=== PATIENT | female | born 1965 | race American Indian/Alaskan Native ===

== ENCOUNTER 2017-09-14 11:50 | Outpatient (CLI) | payer OTHER ==
--- NOTE | 2017-09-14 12:34 | XRay Report ---
CHEST 2 VIEWS INDICATION: CAD, VT. COMPARISON: None similar at this institution. FINDINGS: PA and lateral chest radiographs demonstrate normal cardiomediastinal silhouette. Clear lungs. Mild multilevel spinal degenerative spurring. CONCLUSION: No acute disease in the chest. Thank you for the opportunity to participate in this patient's care.
== END 2017-09-14 11:51 | disposition home or self-care (01) ==
LOC: XRAY 11:50
PROVIDERS: ATTEND Internal Medicine
DX: I10 Essential (primary) hypertension (principal); I25.10 Atherosclerotic heart disease of native coronary artery without angina pectoris; I21.9 Acute myocardial infarction, unspecified; K58.9 Irritable bowel syndrome, unspecified; E78.00 Pure hypercholesterolemia, unspecified; M53.84 Other specified dorsopathies, thoracic region
CPT/HCPCS: 71046; 93005; 93010

== ENCOUNTER 2017-10-13 11:08 | Observation (INO) | payer OTHER ==
[2017-10-13] MEDS ORDERED: ASPIRIN PO ONE (11:18)
[2017-10-13 11:42] LABS: Basophils # (Auto) 0.1 K/mm3 (0.0-0.1); Basophils % (Auto) 0.4 % (0.0-1.8); Hemoglobin 13.6 gm/dl (10.1-14.3); Lymphocytes # (Auto) 1.8 K/mm3 (1.2-5.4); Lymphocytes % (Auto) 9.5 % (13.4-35.0); Mean Corpuscular HGB Conc 32 % (30-34); Mean Corpuscular Hemoglobin 27 pg (28-32); Mean Corpuscular Volume 85 fl (79-97); Monocytes # (Auto) 0.8 K/mm3 (0.0-0.8); Monocytes % (Auto) 4.1 % (0.0-7.3); Platelet Count 344 K/mm3 (140-440); Red Blood Count 4.96 M/mm3 (3.65-5.03); Red Cell Distribution Width 15.8 % (13.2-15.2)
[2017-10-13] MEDS ORDERED: ZOFRAN IV ONE (11:43)
[2017-10-13] MEDS ORDERED: ZOFRAN ONE (11:44)
[2017-10-13 11:54] LABS: BUN/Creatinine Ratio 17; Blood Urea Nitrogen 12 mg/dL (7-17); Calcium 9.8 mg/dL (8.4-10.2); Hemolysis Index 27
--- NOTE | 2017-10-13 12:01 | Emergency Department Report ---
ED General Adult HPI - General Chief complaint: Chest Pain Stated complaint: CP Time Seen by Provider: 10/13/17 11:35 Source: patient Mode of arrival: Ambulatory Limitations: No Limitations - History of Present Illness Initial comments: Patient complains of chest pain that has been intermittent in nature for last 3 weeks. Patient has a history of [place]. Patient describes the chest pain is left- sided with radiation to the left warm. She states pain is worse with exertion. -: Gradual Location: chest Radiation: other (left forearm) Severity scale (0 -10): 3 Quality: crushing Consistency: intermittent Improves with: none Worsens with: other (associated) Associated Symptoms: denies other symptoms Treatments Prior to Arrival: none - Related Data Allergies Allergy/AdvReac Type Severity Reaction Status Date / Time No Known Allergies Allergy Unverified 09/14/17 11:51 ED Review of Systems ROS: Stated complaint: CP Other details as noted in HPI Comment: All other systems reviewed and negative Constitutional: denies: chills, fever Eyes: denies: eye pain, eye discharge, vision change ENT: denies: ear pain, throat pain Respiratory: denies: cough, shortness of breath, wheezing Cardiovascular: chest pain. denies: palpitations Endocrine: no symptoms reported Gastrointestinal: denies: abdominal pain, nausea, diarrhea Genitourinary: denies: urgency, dysuria, discharge Musculoskeletal: denies: back pain, joint swelling, arthralgia Skin: denies: rash, lesions Neurological: denies: headache, weakness, paresthesias Psychiatric: denies: anxiety, depression Hematological/Lymphatic: denies: easy bleeding, easy bruising ED Past Medical Hx - Past Medical History Previous Medical History?: Yes Hx Hypertension: Yes Hx Heart Attack/AMI: Yes Additional medical history: High cholesterol. - Surgical History Past Surgical History?: No - Social History Smoking Status: Never Smoker Substance Use Type: None ED Physical Exam - General Limitations: No Limitations General appearance: alert, in no apparent distress - Head Head exam: Present: atraumatic, normocephalic - Eye Eye exam: Present: normal appearance - ENT ENT exam: Present: mucous membranes moist - Neck Neck exam: Present: normal inspection - Respiratory Respiratory exam: Present: normal lung sounds bilaterally. Absent: respiratory distress - Cardiovascular Cardiovascular Exam: Present: regular rate, normal rhythm. Absent: systolic murmur, diastolic murmur, rubs, gallop - GI/Abdominal GI/Abdominal exam: Present: soft, normal bowel sounds - Extremities Exam Extremities exam: Present: normal inspection - Back Exam Back exam: Present: normal inspection - Neurological Exam Neurological exam: Present: alert, oriented X3 - Psychiatric Psychiatric exam: Present: normal affect, normal mood - Skin Skin exam: Present: warm, dry, intact, normal color. Absent: rash ED Course Vital Signs 10/13/17 10/13/17 10/13/17 11:13 11:30 11:45 Temperature 98.6 F Pulse Rate 68 76 Respiratory 16 21 21 Rate Blood Pressure 170/92 168/97 O2 Sat by Pulse 96 94 Oximetry 10/13/17 10/13/17 10/13/17 12:00 12:15 12:30 Temperature Pulse Rate 64 65 63 Respiratory 22 16 15 Rate Blood Pressure 148/85 148/85 148/90 O2 Sat by Pulse 98 99 97 Oximetry 10/13/17 12:45 Temperature Pulse Rate 61 Respiratory 16 Rate Blood Pressure 148/90 O2 Sat by Pulse 97 Oximetry ED Medical Decision Making - Lab Data Result diagrams: 10/13/17 11:25 10/13/17 11:25 - EKG Data EKG shows normal: sinus rhythm Rate: normal - EKG Data 10/13/17 13:41 EKG shows a sinus rate of 75 with left ventricular hypertrophy and T-wave inversions no prior EKG for evaluation - Medical Decision Making Patient chest pain was relieved with sublingual nitroglycerin. Patient was seen by cardiology at the bedside Discussed results with patient and need for admission Per cardiology to plan to send the patient On Monday Critical care attestation.: If time is entered above; I have spent that time in minutes in the direct care of this critically ill patient, excluding procedure time. ED Disposition Clinical Impression: Chest pain Disposition: OP ADMIT IP TO THIS HOSP Is pt being admited?: Yes Does the pt Need Aspirin: Yes Condition: Stable Instructions: Chest Pain (ED) Time of Disposition: 13:39
[2017-10-13 13:01] LABS: INR 0.91 (0.87-1.13)
[2017-10-13 13:02] LABS: Partial Thromboplastin Time 29.9 Sec. (24.2-36.6)
[2017-10-13] MEDS ORDERED: NITROSTAT SL PRN (13:32)
[2017-10-13] MEDS ORDERED: NITRO-BID 2% TP ONE ×3 (13:34→18:00)
--- NOTE | 2017-10-13 14:32 | Consultation ---
History of Present Illness Consult date: 10/13/17 Requesting physician: MODE ROJAS Consult reason: chest pain, known to you History of present illness: The pt is a 52 YO female with a past medical history significant for HTN, HLP, GERD. She was seen in our office today for consultation (referred by Dr. Gilmar Dorman for abnormal ECG and chest pain) per Dr. ISRRAEL Deluna. She presented with c/ o chest pain for the past 3 weeks. She describes her chest pain as an exertional , midsternal and left-sided pressure which radiates down her left arm. The pain is associated with fatigue, SOB, sometimes nausea and sometimes diaphoresis. She denies any palpitations, dizziness or syncope. In the office today, her ECG was noted to be abnormal and she was referred to ED for further eval/ management. Following arrival to ED, ECG showed SR with repolarization abnormalities secondary to LVH. On evaluation, pt is resting comfortably in bed and denies any current chest pain. Of note, pt reports that she underwent LHC in 2014 at [facility] for eval of chest pain and was told she had no CAD at that time. Past History Past Medical History: hypertension, hyperlipidemia Past Surgical History: Other (knee surgery) Social history: , lives with family. denies: smoking, alcohol abuse, prescription drug abuse Family history: CAD (mother had CABG at 62 YOA) Medications and Allergies Allergies Allergy/AdvReac Type Severity Reaction Status Date / Time No Known Allergies Allergy Unverified 09/14/17 11:51 Active Meds: Active Medications Nitroglycerin (Nitrostat) 0.4 mg SL .Q5MIN PRN PRN Reason: Chest Pain Last Admin: 10/13/17 13:32 Dose: 0.4 mg Review of Systems Constitutional: fatigue, no weight loss, no weight gain, no fever, no chills, no sweats Ears, nose, mouth and throat: no ear pain, no nose pain, no sinus pressure, no sinus pain Cardiovascular: chest pain, shortness of breath, dyspnea on exertion, high blood pressure, decreased exercise tolerance, no orthopnea, no rapid/irregular heart beat, no edema, no syncope, no lightheadedness, no paroxysmal nocturnal dyspnea, no leg edema Respiratory: shortness of breath, dyspnea on exertion, no cough, no congestion, no wheezing, no pain on inspiration Gastrointestinal: nausea, no abdominal pain, no vomiting, no diarrhea, no constipation, no change in bowel habits Genitourinary Female: no pelvic pain, no flank pain, no dysuria, no urinary frequency, no urgency Musculoskeletal: no neck stiffness, no neck pain, no low back pain, no shooting leg pain, no leg numbness/tingling, no redness of joints Integumentary: no rash, no pruritis, no redness, no sores, no wounds Neurological: no head injury, no paralysis, no weakness, no parathesias, no numbness, no tingling, no seizures, no syncope Psychiatric: no anxiety Endocrine: no cold intolerance, no heat intolerance Hematologic/Lymphatic: no easy bruising, no easy bleeding, no lymphadenopathy Allergic/Immunologic: no urticaria, no wheezing, no persistent infections Physical Examination Vital Signs Temp Pulse Resp BP Pulse Ox 98.6 F 68 16 170/92 96 10/13/17 11:13 10/13/17 11:13 10/13/17 11:13 10/13/17 11:13 10/13/17 11:13 General appearance: no acute distress HEENT: Positive: PERRL, Normocephaly, Mucus Membranes Moist Neck: Positive: neck supple, trachea midline Cardiac: Positive: Reg Rate and Rhythm, S1/S2 Lungs: Positive: clear to auscultation Neuro: Positive: Grossly Intact, Cranial Nerve 2-12 Intact Abdomen: Positive: Soft. Negative: Tender Skin: Positive: Clear. Negative: Rash, Wound Musculoskeletal: No Fluid Collection, No Pain, Normal Range of Motion Extremities: Absent: edema Results 10/13/17 11:25 10/13/17 11:25 Coagulation 10/13/17 Range/Units 11:25 PT 12.7 (12.2-14.9) Sec. INR 0.91 (0.87-1.13) APTT 29.9 (24.2-36.6) Sec. CBC 10/13/17 Range/Units 11:25 WBC 18.8 H (4.5-11.0) K/mm3 RBC 4.96 (3.65-5.03) M/mm3 Hgb 13.6 (10.1-14.3) gm/dl Hct 42.0 (30.3-42.9) % Plt Count 344 (140-440) K/mm3 Lymph # 1.8 (1.2-5.4) K/mm3 [place] # 0.8 (0.0-0.8) K/mm3 Eos # 0.0 (0.0-0.4) K/mm3 Baso # 0.1 (0.0-0.1) K/mm3 Comprehensive Metabolic Panel 10/13/17 Range/Units 11:25 Sodium 140 (137-145) mmol/L Potassium 4.6 (3.6-5.0) mmol/L Chloride 101.5 (98-107) mmol/L Carbon Dioxide 27 (22-30) mmol/L BUN 12 (7-17) mg/dL Creatinine 0.7 (0.7-1.2) mg/dL Glucose 115 H (65-100) mg/dL Calcium 9.8 (8.4-10.2) mg/dL - Imaging and Cardiology Echo: pending EKG: report reviewed, image reviewed EKG interpretations - Telemetry EKG Rhythm: Sinus Rhythm - EKG Sinus rhythms and dysrhythmias: sinus rhythm Repolarization changes or abnormalities: repolarization abn secondary to ventricular hypertrophy Assessment and Plan Assessment: Unstable angina - Rigo negative for AMI x 2 sets Abnormal ECG Leukocytosis HTN HLP Plan: Admit per hospitalists. Initiate anti-ischemic regimen - ASA 325, lipitor, lopressor, Imdur. Obtain lipid panel in AM. Obtain echo. Cont serial ECGs. Cont tele. Plan for coronary angiography on Monday, 10/16. Indications, potential risks and benefits of LHC reviewed with pt and pt's at bedside and they are agreeable to proceed with procedure. Consents obtained. The patient has been seen in conjunction with Dr. Do who agrees with the assessment and plan of care.
[2017-10-13] MEDS: IMDUR PO SCH (18:18)
--- NOTE | 2017-10-13 20:02 | History and Physical Report ---
History of Present Illness Date of examination: 10/13/17 Date of admission: 10/13/17 13:41 Chief complaint: Cc Chest pain 3 weeks History of present illness: History of Present Illness: 52-year-old female with past medical history of hypertension gastroesophageal reflux disease and hyperlipidemia was seen in [facility] office for abnormal EKG and chest pain. Patient has been having chest pain for past 3 weeks. Chest pain is intermittent midsternal exertional and radiates to the left arm. Chest pain is associated with fatigue shortness of breath sometimes nausea and sometimes diaphoresis. No palpitations dizziness or syncope. And the [facility]'s office her EKG was noted to be abnormal and was referred to the emergency room for further evaluation and management. EKG showed sinus rhythm with repolarization abnormalities secondary to LVH. Patient had a left heart catheterization in 2014 at [facility] for evaluation of chest pain and was told that she had no coronary artery disease at that time. Past Medical History Previous Medical History?: Yes Hx Hypertension: Yes Hx Heart Attack/AMI: Yes Additional medical history: High cholesterol. Surgical History Knee Surgery Family History Htn,CAD (mother had CABG at 62 YOA) -Social History Smoking Status: Never Smoker Substance Use Type: None Review of Systems ROS: Stated complaint: CP Other details as noted in HPI Comment: All other systems reviewed and negative Constitutional: denies: chills, fever Eyes: denies: eye pain, eye discharge, vision change ENT: denies: ear pain, throat pain Respiratory: denies: cough, shortness of breath, wheezing Cardiovascular: chest pain. denies: palpitations Endocrine: no symptoms reported Gastrointestinal: denies: abdominal pain, nausea, diarrhea Genitourinary: denies: urgency, dysuria, discharge Musculoskeletal: denies: back pain, joint swelling, arthralgia Skin: denies: rash, lesions Neurological: denies: headache, weakness, paresthesias Psychiatric: denies: anxiety, depression Hematological/Lymphatic: denies: easy bleeding, easy bruising Past History Past Medical History: hypertension, hyperlipidemia Past Surgical History: Other (knee surgery) Social history: , lives with family. denies: smoking, alcohol abuse, prescription drug abuse Family history: CAD (mother had CABG at 62 YOA) Medications and Allergies Allergies Allergy/AdvReac Type Severity Reaction Status Date / Time No Known Allergies Allergy Unverified 09/14/17 11:51 Home Medications Medication Instructions Recorded Confirmed Last Taken Type Aspirin [Aspirin EC] 81 mg PO DAILY 10/13/17 10/13/17 10/12/17 History AtorvaSTATin [Lipitor] 20 mg PO QHS 10/13/17 10/13/17 10/12/17 History Cholecalciferol (Vitamin D3) 2,000 unit PO QDAY 10/13/17 10/13/17 10/12/17 History [Vitamin D3 2,000 unit] Montelukast [Singulair] 10 mg PO QPM 10/13/17 10/13/17 10/12/17 History methylPREDNISolone 4 mg PO DAILY 10/13/17 10/13/17 10/12/17 History [Methylprednisolone] Active Meds: Active Medications Aspirin (Aspirin) 325 mg PO QDAY [facility] Atorvastatin Calcium (Lipitor) 40 mg PO QHS [facility] Sodium Chloride (Nacl 0.9% 500 Ml) 500 mls @ 50 mls/hr IV DIRECT [facility] Isosorbide Mononitrate (Imdur) 30 mg PO QDAY [facility] Last Admin: 10/13/17 18:18 Dose: Not Given Metoprolol Tartrate (Lopressor) 12.5 mg PO BID [facility] Exam - Constitutional Vitals: Temp Pulse Resp BP Pulse Ox 98.6 F 66 21 142/76 95 10/13/17 11:13 10/13/17 16:00 10/13/17 16:00 10/13/17 16:00 10/13/17 16:00 General appearance: Present: no acute distress, well-nourished - EENT Eyes: Present: PERRL ENT: hearing intact, clear oral mucosa - Neck Neck: Present: supple, normal ROM - Respiratory Respiratory effort: normal Respiratory: bilateral: CTA - Cardiovascular Heart rate: 70 Rhythm: regular Heart Sounds: Present: S1 & S2. Absent: rub, click - Extremities Extremities: no ischemia, pulses intact, pulses symmetrical, No edema Peripheral Pulses: within normal limits - Abdominal General gastrointestinal: Present: soft, non-tender, non-distended, normal bowel sounds Female genitourinary: Present: normal - Rectal Rectal Exam: deferred - Integumentary Integumentary: Present: clear, warm, dry - Musculoskeletal Musculoskeletal: gait normal, strength equal bilaterally - Psychiatric Psychiatric: appropriate mood/affect, intact judgment & insight - Neurologic Neurologic: CNII-XII intact, moves all extremities - Allied Health Allied health notes reviewed: nursing, case management Results - Labs CBC & Chem 7: 10/13/17 11:25 10/13/17 11:25 Labs: Laboratory Last Values WBC 18.8 K/mm3 (4.5-11.0) H 10/13/17 11:25 RBC 4.96 M/mm3 (3.65-5.03) 10/13/17 11:25 Hgb 13.6 gm/dl (10.1-14.3) 10/13/17 11:25 Hct 42.0 % (30.3-42.9) 10/13/17 11:25 MCV 85 fl (79-97) 10/13/17 11:25 MCH 27 pg (28-32) L 10/13/17 11:25 MCHC 32 % (30-34) 10/13/17 11:25 RDW 15.8 % (13.2-15.2) H 10/13/17 11:25 Plt Count 344 K/mm3 (140-440) 10/13/17 11:25 Lymph % (Auto) 9.5 % (13.4-35.0) L 10/13/17 11:25 [place] % (Auto) 4.1 % (0.0-7.3) 10/13/17 11:25 Eos % (Auto) 0.0 % (0.0-4.3) 10/13/17 11:25 Baso % (Auto) 0.4 % (0.0-1.8) 10/13/17 11:25 Lymph # 1.8 K/mm3 (1.2-5.4) 10/13/17 11:25 [place] # 0.8 K/mm3 (0.0-0.8) 10/13/17 11:25 Eos # 0.0 K/mm3 (0.0-0.4) 10/13/17 11:25 Baso # 0.1 K/mm3 (0.0-0.1) 10/13/17 11:25 Seg Neutrophils % 86.0 % (40.0-70.0) H 10/13/17 11:25 Seg Neutrophils # 16.1 K/mm3 (1.8-7.7) H 10/13/17 11:25 PT 12.7 Sec. (12.2-14.9) 10/13/17 11:25 INR 0.91 (0.87-1.13) 10/13/17 11:25 APTT 29.9 Sec. (24.2-36.6) 10/13/17 11:25 Sodium 140 mmol/L (137-145) 10/13/17 11:25 Potassium 4.6 mmol/L (3.6-5.0) 10/13/17 11:25 Chloride 101.5 mmol/L (98-107) 10/13/17 11:25 Carbon Dioxide 27 mmol/L (22-30) 10/13/17 11:25 Anion Gap 16 mmol/L 10/13/17 11:25 BUN 12 mg/dL (7-17) 10/13/17 11:25 Creatinine 0.7 mg/dL (0.7-1.2) 10/13/17 11:25 Estimated GFR > 60 ml/min 10/13/17 11:25 BUN/Creatinine Ratio 17 % 10/13/17 11:25 Glucose 115 mg/dL (65-100) H 10/13/17 11:25 Calcium 9.8 mg/dL (8.4-10.2) 10/13/17 11:25 Troponin T < 0.010 ng/mL (0.00-0.029) 10/13/17 13:30 - Imaging and Cardiology EKG: report reviewed (SR 64/min LVH ) Assessment and Plan Advance Directives: Yes Plan of care discussed with patient/family: Yes - Patient Problems (1) Unstable angina Current Visit: Yes Status: Acute Plan to address problem: Third troponin is elevated. Clinical picture consistent with unstable angina. Initiate anti-ischemic regimen - ASA 325, lipitor, lopressor, Imdur. For cath on Monday. (2) Hyperlipidemia Current Visit: Yes Status: Chronic Qualifiers: Hyperlipidemia type: mixed hyperlipidemia Qualified Code(s): E78.2 - Mixed hyperlipidemia Plan to address problem: Continue statins (3) Asthma Current Visit: Yes Status: Inactive Qualifiers: Asthma persistence: unspecified Plan to address problem: Continue montelukast (4) Leukocytosis, unspecified Current Visit: Yes Status: Acute Plan to address problem: Probably secondary to demargination. No antibiotics initiated. (5) DVT prophylaxis Current Visit: Yes Status: Acute Plan to address problem: on heparin/Lovenox GI prophylaxis on famotidine
[2017-10-13] MEDS ORDERED: AMBIEN PO PRN (20:03)
[2017-10-13] MEDS ORDERED: ZOFRAN IV PRN (20:03)
[2017-10-13] MEDS ORDERED: SODIUM CHLORIDE FLUSH SYRINGE 10 ML IV PRN (20:03)
[2017-10-13] MEDS ORDERED: PERCOCET 5/325 PO PRN (20:03)
[2017-10-13] MEDS ORDERED: HALFPRIN EC PO SCH (21:00)
[2017-10-13 22:03] LABS: Chol/HDL Ratio 5.1 %
[2017-10-13] MEDS: PEPCID PO SCH (22:12)
[2017-10-13] MEDS: LOPRESSOR PO SCH (22:14)
[2017-10-13] MEDS: SODIUM CHLORIDE FLUSH SYRINGE 10 ML IV SCH (22:14)
[2017-10-13] MEDS: LOVENOX SUB-Q SCH (22:57)
[2017-10-13] MEDS ORDERED: LOVENOX SUB-Q SCH (23:00)
[2017-10-14] MEDS: MORPHINE IV PRN ×2 (03:02→09:40)
[2017-10-14] MEDS: LOVENOX SUB-Q SCH ×2 (09:41→22:37)
[2017-10-14] MEDS: PEPCID PO SCH ×2 (09:42→22:37)
[2017-10-14] MEDS: VITAMIN D3 PO SCH (09:42)
[2017-10-14] MEDS: ASPIRIN PO SCH (09:42)
[2017-10-14] MEDS: SODIUM CHLORIDE FLUSH SYRINGE 10 ML IV SCH ×2 (09:43→22:38)
[2017-10-14] MEDS: MEDROL PO SCH (09:44)
[2017-10-14] MEDS ORDERED: LOVENOX SUB-Q SCH (10:00)
[2017-10-14] MEDS ORDERED: NON-FORMULARY (Cholecalciferol (Vitamin D3) [Vitamin D3 2,000 Unit] 2,000 UNIT) PO SCH (10:00)
[2017-10-14] MEDS: IMDUR PO SCH (10:33)
--- NOTE | 2017-10-14 10:34 | Progress Note ---
Assessment and Plan Assessment and plan: Chest pain. For cardiac cath Monday History Interval history: Chest pain, No shortness of breath Hospitalist Physical - Physical exam Narrative exam: Gen appearance: Not in acute distress, lying in bed, HEENT:Normocephalic, atraumatic Neck:supple, no JVD Lungs: Clear to auscultation bilaterally, no crackles , no wheeze Heart: S1 and S2 regular, no murmurs, rubs or gallop Abdomen: soft, non tender, non distended, normal bowel sounds Ext: No edema, no clubbing, no cyanosis. Neuro: Awake, alert, oriented x 3 - Constitutional Vitals: Temp Pulse Resp BP Pulse Ox 97.6 F 58 L 20 114/76 100 10/14/17 04:40 10/14/17 04:40 10/14/17 04:40 10/14/17 04:40 10/14/17 04:40 General appearance: Present: no acute distress, well-nourished Results - Labs CBC & Chem 7: 10/13/17 11:25 10/13/17 11:25 Labs: Laboratory Last Values WBC 18.8 K/mm3 (4.5-11.0) H 10/13/17 11:25 RBC 4.96 M/mm3 (3.65-5.03) 10/13/17 11:25 Hgb 13.6 gm/dl (10.1-14.3) 10/13/17 11:25 Hct 42.0 % (30.3-42.9) 10/13/17 11:25 MCV 85 fl (79-97) 10/13/17 11:25 MCH 27 pg (28-32) L 10/13/17 11:25 MCHC 32 % (30-34) 10/13/17 11:25 RDW 15.8 % (13.2-15.2) H 10/13/17 11:25 Plt Count 344 K/mm3 (140-440) 10/13/17 11:25 Lymph % (Auto) 9.5 % (13.4-35.0) L 10/13/17 11:25 [place] % (Auto) 4.1 % (0.0-7.3) 10/13/17 11:25 Eos % (Auto) 0.0 % (0.0-4.3) 10/13/17 11:25 Baso % (Auto) 0.4 % (0.0-1.8) 10/13/17 11:25 Lymph # 1.8 K/mm3 (1.2-5.4) 10/13/17 11:25 [place] # 0.8 K/mm3 (0.0-0.8) 10/13/17 11:25 Eos # 0.0 K/mm3 (0.0-0.4) 10/13/17 11:25 Baso # 0.1 K/mm3 (0.0-0.1) 10/13/17 11:25 Seg Neutrophils % 86.0 % (40.0-70.0) H 10/13/17 11:25 Seg Neutrophils # 16.1 K/mm3 (1.8-7.7) H 10/13/17 11:25 PT 12.7 Sec. (12.2-14.9) 10/13/17 11:25 INR 0.91 (0.87-1.13) 10/13/17 11:25 APTT 29.9 Sec. (24.2-36.6) 10/13/17 11:25 Sodium 140 mmol/L (137-145) 10/13/17 11:25 Potassium 4.6 mmol/L (3.6-5.0) 10/13/17 11:25 Chloride 101.5 mmol/L (98-107) 10/13/17 11:25 Carbon Dioxide 27 mmol/L (22-30) 10/13/17 11:25 Anion Gap 16 mmol/L 10/13/17 11:25 BUN 12 mg/dL (7-17) 10/13/17 11:25 Creatinine 0.7 mg/dL (0.7-1.2) 10/13/17 11:25 Estimated GFR > 60 ml/min 10/13/17 11:25 BUN/Creatinine Ratio 17 % 10/13/17 11:25 Glucose 115 mg/dL (65-100) H 10/13/17 11:25 Calcium 9.8 mg/dL (8.4-10.2) 10/13/17 11:25 Troponin T < 0.010 ng/mL (0.00-0.029) 10/14/17 08:39 Triglycerides 130 mg/dL (2-149) 10/13/17 20:53 Cholesterol 97 mg/dL (50-199) 10/13/17 20:53 LDL Cholesterol Direct 50 mg/dL (50-130) 10/13/17 20:53 HDL Cholesterol 19 mg/dL (40-59) L 10/13/17 20:53 Cholesterol/HDL Ratio 5.10 % 10/13/17 20:53
[2017-10-14] MEDS: LOPRESSOR PO SCH ×2 (10:35→22:37)
--- NOTE | 2017-10-14 12:18 | Progress Note ---
Assessment and Plan Unstable angina - Rigo negative for AMI x 2 sets Abnormal ECG Leukocytosis HTN HLP Plan: Admit per hospitalists. Initiate anti-ischemic regimen - ASA 325, lipitor, lopressor, Imdur. Obtain lipid panel in AM. Obtain echo. Cont serial ECGs. Cont tele. Plan for coronary angiography on Monday, 10/16 Discussed with the Hospitalist. Subjective Date of service: 10/14/17 Interval history: No chest pain.Has sob on exertion.Had cardiac cath done in 2013 at [facility].It was negative. Objective Vital Signs Temp Pulse Pulse Resp Resp BP Pulse Ox 10/14/17 04:40 97.6 F 58 L 20 114/76 100 10/14/17 03:32 18 10/14/17 03:02 20 10/14/17 01:17 97.9 F 20 106/63 10/13/17 23:19 18 10/13/17 22:30 20 10/13/17 22:19 18 10/13/17 22:14 100 H 128/95 10/13/17 22:00 80 20 98 10/13/17 20:30 109 H 16 128/95 100 10/13/17 20:20 99 H 15 128/95 10/13/17 20:10 100 H 15 128/95 10/13/17 20:02 98 H 15 128/95 10/13/17 20:00 100 H 15 128/95 10/13/17 19:50 104 H 16 128/89 100 10/13/17 19:40 103 H 15 128/89 98 10/13/17 19:30 100 H 22 128/89 100 10/13/17 19:21 88 10/13/17 19:20 99 H 14 128/89 100 10/13/17 19:10 101 H 13 128/89 100 10/13/17 19:00 96 H 15 128/89 100 10/13/17 18:50 98 H 14 128/93 100 10/13/17 18:40 97 H 13 128/93 10/13/17 18:30 105 H 15 128/93 100 10/13/17 18:20 98 H 14 128/93 10/13/17 18:10 104 H 15 128/93 10/13/17 18:07 146/61 99 10/13/17 16:30 65 17 146/61 95 10/13/17 16:20 62 18 146/61 96 10/13/17 16:00 66 21 142/76 95 10/13/17 15:46 70 22 142/76 95 10/13/17 15:30 61 19 142/76 95 10/13/17 15:16 65 12 132/86 96 10/13/17 15:00 62 17 132/86 99 10/13/17 14:46 66 15 124/81 97 10/13/17 14:30 61 20 129/87 98 10/13/17 14:15 66 15 124/81 95 10/13/17 14:00 62 21 124/81 98 10/13/17 13:45 65 21 143/86 94 10/13/17 13:30 68 14 143/86 98 10/13/17 13:15 70 22 133/78 98 10/13/17 13:00 61 18 133/78 98 10/13/17 12:45 61 16 148/90 97 10/13/17 12:30 63 15 148/90 97 10/13/17 12:15 65 16 148/85 99 - Physical Examination General: Appears Well, No Apparent Distress HEENT: Positive: PERRL, Normocephaly, Mucus Membranes Moist Neck: Positive: neck supple, trachea midline. Negative: JVD/HJR Cardiac: Positive: Regular Rate Lungs: Positive: Normal Exam Neuro: Positive: Grossly Intact, Cranial Nerve 2-12 Intact Abdomen: Positive: Soft. Negative: Organomegaly, Tender Skin: Positive: Clear. Negative: Rash, Wound Musculoskeletal: No Fluid Collection, No Pain, Normal Range of Motion Extremities: Absent: edema - Labs and Meds Coagulation 10/13/17 Range/Units 11:25 PT 12.7 (12.2-14.9) Sec. INR 0.91 (0.87-1.13) APTT 29.9 (24.2-36.6) Sec. Lipids 10/13/17 Range/Units 20:53 Triglycerides 130 (2-149) mg/dL Cholesterol 97 (50-199) mg/dL HDL Cholesterol 19 L (40-59) mg/dL Cholesterol/HDL Ratio 5.10 % - Imaging and Cardiology EKG: report reviewed (SR 64/min LVH No change from office EKG.) Echo: pending - EKG Sinus rhythms and dysrhythmias: sinus rhythm Repolarization changes or abnormalities: repolarization abn secondary to ventricular hypertrophy
[2017-10-14] MEDS: SINGULAIR PO SCH (18:00)
--- NOTE | 2017-10-14 18:10 | XRay Report ---
FINAL REPORT PROCEDURE: XR CHEST ROUTINE 2V TECHNIQUE: PA and lateral chest radiographs were obtained. CPT 71360 HISTORY: chest pain COMPARISON: No prior studies are available for comparison. FINDINGS: Heart: Normal. Mediastinum/Vessels: Normal. Lungs/Pleural space: No infiltrate, effusion, or pneumothorax. Bony thorax: No acute osseous abnormality. Other: IMPRESSION: No pulmonary infiltrates are identified.
[2017-10-15 00:25] LABS: Bilirubin,Urine NEG (Negative); Blood,Urine NEG (Negative); Color,Urine Yellow (Yellow); Protein,Urine <15 mg/dL mg/dL (Negative); Urobilinogen,Urine < 2.0 mg/dL (<2.0); WBC,Urine < 1.0 /HPF (0.0-6.0)
[2017-10-15 00:57] LABS: RBC,Urine < 1.0 /HPF (0.0-6.0)
[2017-10-15] MEDS: ASPIRIN PO SCH (10:44)
[2017-10-15] MEDS: MEDROL PO SCH (10:44)
[2017-10-15] MEDS: IMDUR PO SCH (10:44)
[2017-10-15] MEDS: VITAMIN D3 PO SCH (10:45)
[2017-10-15] MEDS: PEPCID PO SCH ×2 (10:45→23:21)
[2017-10-15] MEDS: LOPRESSOR PO SCH ×2 (10:45→21:10)
[2017-10-15] MEDS: LOVENOX SUB-Q SCH ×2 (10:46→21:09)
[2017-10-15] MEDS: SODIUM CHLORIDE FLUSH SYRINGE 10 ML IV SCH ×2 (10:47→21:12)
--- NOTE | 2017-10-15 11:26 | Progress Note ---
Assessment and Plan Assessment and plan: Chest pain. For cardiac cath Monday History Interval history: Less Chest pain, No shortness of breath Hospitalist Physical - Physical exam Narrative exam: Gen appearance: Not in acute distress, lying in bed, HEENT:Normocephalic, atraumatic Neck:supple, no JVD Lungs: Clear to auscultation bilaterally, no crackles , no wheeze Heart: S1 and S2 regular, no murmurs, rubs or gallop Abdomen: soft, non tender, non distended, normal bowel sounds Ext: No edema, no clubbing, no cyanosis. Neuro: Awake, alert, oriented x 3 - Constitutional Vitals: Temp Pulse Resp BP Pulse Ox 97.7 F 69 18 128/74 95 10/15/17 08:16 10/15/17 10:45 10/15/17 10:00 10/15/17 10:45 10/15/17 08:16 General appearance: Present: no acute distress, obese Results - Labs CBC & Chem 7: 10/13/17 11:25 10/13/17 11:25 Labs: Laboratory Last Values WBC 18.8 K/mm3 (4.5-11.0) H 10/13/17 11:25 RBC 4.96 M/mm3 (3.65-5.03) 10/13/17 11:25 Hgb 13.6 gm/dl (10.1-14.3) 10/13/17 11:25 Hct 42.0 % (30.3-42.9) 10/13/17 11:25 MCV 85 fl (79-97) 10/13/17 11:25 MCH 27 pg (28-32) L 10/13/17 11:25 MCHC 32 % (30-34) 10/13/17 11:25 RDW 15.8 % (13.2-15.2) H 10/13/17 11:25 Plt Count 344 K/mm3 (140-440) 10/13/17 11:25 Lymph % (Auto) 9.5 % (13.4-35.0) L 10/13/17 11:25 [place] % (Auto) 4.1 % (0.0-7.3) 10/13/17 11:25 Eos % (Auto) 0.0 % (0.0-4.3) 10/13/17 11:25 Baso % (Auto) 0.4 % (0.0-1.8) 10/13/17 11:25 Lymph # 1.8 K/mm3 (1.2-5.4) 10/13/17 11:25 [place] # 0.8 K/mm3 (0.0-0.8) 10/13/17 11:25 Eos # 0.0 K/mm3 (0.0-0.4) 10/13/17 11:25 Baso # 0.1 K/mm3 (0.0-0.1) 10/13/17 11:25 Seg Neutrophils % 86.0 % (40.0-70.0) H 10/13/17 11:25 Seg Neutrophils # 16.1 K/mm3 (1.8-7.7) H 10/13/17 11:25 PT 12.7 Sec. (12.2-14.9) 10/13/17 11:25 INR 0.91 (0.87-1.13) 10/13/17 11:25 APTT 29.9 Sec. (24.2-36.6) 10/13/17 11:25 Sodium 140 mmol/L (137-145) 10/13/17 11:25 Potassium 4.6 mmol/L (3.6-5.0) 10/13/17 11:25 Chloride 101.5 mmol/L (98-107) 10/13/17 11:25 Carbon Dioxide 27 mmol/L (22-30) 10/13/17 11:25 Anion Gap 16 mmol/L 10/13/17 11:25 BUN 12 mg/dL (7-17) 10/13/17 11:25 Creatinine 0.7 mg/dL (0.7-1.2) 10/13/17 11:25 Estimated GFR > 60 ml/min 10/13/17 11:25 BUN/Creatinine Ratio 17 % 10/13/17 11:25 Glucose 115 mg/dL (65-100) H 10/13/17 11:25 Calcium 9.8 mg/dL (8.4-10.2) 10/13/17 11:25 Troponin T < 0.010 ng/mL (0.00-0.029) 10/14/17 08:39 Triglycerides 130 mg/dL (2-149) 10/13/17 20:53 Cholesterol 97 mg/dL (50-199) 10/13/17 20:53 LDL Cholesterol Direct 50 mg/dL (50-130) 10/13/17 20:53 HDL Cholesterol 19 mg/dL (40-59) L 10/13/17 20:53 Cholesterol/HDL Ratio 5.10 % 10/13/17 20:53 Urine Color Yellow (Yellow) 10/14/17 23:44 Urine Turbidity Clear (Clear) 10/14/17 23:44 Urine pH 6.0 (5.0-7.0) 10/14/17 23:44 Ur Specific [place] 1.015 (1.003-1.030) 10/14/17 23:44 Urine Protein <15 mg/dl mg/dL (Negative) 10/14/17 23:44 Urine Glucose (UA) Neg mg/dL (Negative) 10/14/17 23:44 Urine Ketones Neg mg/dL (Negative) 10/14/17 23:44 Urine Blood Neg (Negative) 10/14/17 23:44 Urine Nitrite Neg (Negative) 10/14/17 23:44 Urine Bilirubin Neg (Negative) 10/14/17 23:44 Urine Urobilinogen < 2.0 mg/dL (<2.0) 10/14/17 23:44 Ur Leukocyte Esterase Tr (Negative) 10/14/17 23:44 Urine WBC (Auto) < 1.0 /HPF (0.0-6.0) 10/14/17 23:44 Urine RBC (Auto) < 1.0 /HPF (0.0-6.0) 10/14/17 23:44 U Epithel Cells (Auto) < 1.0 /HPF (0-13.0) 10/14/17 23:44
--- NOTE | 2017-10-15 12:09 | Progress Note ---
Assessment and Plan Unstable angina - Rigo negative for AMI x 2 sets Abnormal ECG Leukocytosis HTN HLP Plan: Admit per hospitalists. Initiate anti-ischemic regimen - ASA 325, lipitor, lopressor, Imdur. Obtain lipid panel in AM. Obtain echo. Cont serial ECGs. Cont tele. Plan for coronary angiography on Monday, 10/16 Discussed with the Hospitalist. Subjective Date of service: 10/15/17 Interval history: No chest pain.Has sob on exertion.Had cardiac cath done in 2013 at [facility].It was negative.For cath Monday. Objective Vital Signs Temp Pulse Resp Resp BP BP Pulse Ox 10/15/17 10:45 69 128/74 10/15/17 10:44 69 125/74 10/15/17 10:00 18 10/15/17 08:16 97.7 F 69 20 125/74 95 10/15/17 02:23 97.9 F 60 20 113/61 98 10/14/17 22:43 97.9 F 75 20 121/79 95 10/14/17 22:37 74 121/79 10/14/17 22:00 18 10/14/17 21:55 18 99 10/14/17 20:52 76 - Physical Examination General: Appears Well, No Apparent Distress HEENT: Positive: PERRL, Normocephaly, Mucus Membranes Moist Neck: Positive: neck supple, trachea midline. Negative: JVD/HJR Cardiac: Positive: Regular Rate, S1/S2 Lungs: Positive: clear to auscultation Neuro: Positive: Grossly Intact, Cranial Nerve 2-12 Intact Abdomen: Positive: Soft. Negative: Organomegaly, Tender Skin: Positive: Clear. Negative: Rash, Wound Musculoskeletal: No Fluid Collection, No Pain, Normal Range of Motion Extremities: Absent: edema - Imaging and Cardiology EKG: report reviewed (SR 64/min LVH No change from office EKG.) Echo: pending Cardiac cath: pending - EKG Sinus rhythms and dysrhythmias: sinus rhythm Repolarization changes or abnormalities: repolarization abn secondary to ventricular hypertrophy
[2017-10-15] MEDS ORDERED: NACL 0.9% 500 ML 500 ML IV SCH (15:00)
[2017-10-15] MEDS: SINGULAIR PO SCH (17:12)
[2017-10-15] MEDS: TYLENOL PO PRN (18:49)
[2017-10-16 06:20] LABS: Hematocrit 40.2 % (30.3-42.9); Hemoglobin 13.2 gm/dl (10.1-14.3); Mean Corpuscular HGB Conc 33 % (30-34); Mean Corpuscular Hemoglobin 28 pg (28-32); Mean Corpuscular Volume 84 fl (79-97); Platelet Count 343 K/mm3 (140-440); Red Blood Count 4.77 M/mm3 (3.65-5.03); Red Cell Distribution Width 15.7 % (13.2-15.2)
[2017-10-16 06:27] LABS: INR 0.9 (0.87-1.13)
[2017-10-16 06:52] LABS: BUN/Creatinine Ratio 16; Blood Urea Nitrogen 13 mg/dL (7-17); Hemolysis Index 5
[2017-10-16] MEDS: LOPRESSOR PO SCH ×2 (08:07→11:30)
[2017-10-16] MEDS: ASPIRIN PO SCH (08:07)
[2017-10-16] MEDS ORDERED: CALAN ONE (08:45)
[2017-10-16] MEDS ORDERED: HEPARIN 10,000 UNITS/10 ML ONE (08:45)
[2017-10-16] MEDS ORDERED: HEPARIN/NS 5000 UNIT/500ML(CATH LAB) 1,000 ML IR ONE (08:45)
[2017-10-16] MEDS ORDERED: XYLOCAINE 2% INFILTRATI ONE (08:46)
[2017-10-16] MEDS ORDERED: NITROGLYCERIN SYRINGE 3 ML ONE (08:46)
[2017-10-16 08:53] LABS: Basophils % (Manual) 0 % (0.0-1.8); Eosinophils % (Manual) 0 % (0.0-4.3); Platelet Estimate Consistent w Auto; RBC Morphology Normal; Total Cells Counted 100
[2017-10-16] MEDS ORDERED: SUBLIMAZE ONE (10:06)
[2017-10-16] MEDS ORDERED: VERSED ONE (10:06)
--- NOTE | 2017-10-16 11:08 | Progress Note ---
Assessment and Plan Assessment: Chest pain - currently resolved Abnormal ECG Abnormal CE - elevated troponin x 1 set Leukocytosis HTN HLP Plan: S/p LHC this AM which showed normal coronaries, JUAN 2 flow. Initiate Ranexa and convert lipitor to pravastatin. Cont Lopressor and ASA 81. D/c Imdur. Currently stable cardiac status. Pt may discharge home from cardiology standpoint following completion of post-cath order set. Follow up in our [place] office with Dr. ISRRAEL Deluna on 10/24/2017 @ 3:30PM. Assessment and plan reviewed with pt and pt's at bedside. The patient has been seen in conjunction with Dr. Aren Deluna who agrees with the assessment and plan of care. Subjective Date of service: 10/16/17 Principal diagnosis: cp Interval history: pt for [facility] this AM, no current complaints. Objective Last Vital Signs Temp 97.7 F 10/16/17 08:42 Pulse 72 10/16/17 08:42 Resp 18 10/16/17 08:42 BP 136/85 10/16/17 08:42 Pulse Ox 100 10/16/17 08:42 - Physical Examination General: Appears Well, No Apparent Distress HEENT: Positive: PERRL, Normocephaly, Mucus Membranes Moist Neck: Positive: neck supple, trachea midline. Negative: JVD/HJR Cardiac: Positive: Reg Rate and Rhythm, S1/S2 Lungs: Positive: clear to auscultation Neuro: Positive: Grossly Intact, Cranial Nerve 2-12 Intact Abdomen: Positive: Soft. Negative: Organomegaly, Tender Skin: Positive: Clear. Negative: Rash, Wound Musculoskeletal: No Fluid Collection, No Pain, Normal Range of Motion Extremities: Absent: edema - Labs and Meds Coagulation 10/16/17 Range/Units 04:54 PT 12.6 (12.2-14.9) Sec. INR 0.90 (0.87-1.13) CBC 10/16/17 Range/Units 04:54 WBC 14.3 H (4.5-11.0) K/mm3 RBC 4.77 (3.65-5.03) M/mm3 Hgb 13.2 (10.1-14.3) gm/dl Hct 40.2 (30.3-42.9) % Plt Count 343 (140-440) K/mm3 Lymph # [facility] Comprehensive Metabolic Panel 10/16/17 Range/Units 04:54 Sodium 140 (137-145) mmol/L Potassium 4.0 (3.6-5.0) mmol/L Chloride 100.0 (98-107) mmol/L Carbon Dioxide 26 (22-30) mmol/L BUN 13 (7-17) mg/dL Creatinine 0.8 (0.7-1.2) mg/dL Glucose 83 (65-100) mg/dL Calcium 9.0 (8.4-10.2) mg/dL - Imaging and Cardiology EKG: report reviewed (SR 64/min LVH No change from office EKG.) Echo: report reviewed (F 55-60%, apex is hypocontractile, pseudonormalization) Cardiac cath: report reviewed - EKG Sinus rhythms and dysrhythmias: sinus rhythm Repolarization changes or abnormalities: repolarization abn secondary to ventricular hypertrophy
[2017-10-16] MEDS: MEDROL PO SCH (13:29)
[2017-10-16] MEDS: PEPCID PO SCH (13:30)
[2017-10-16] MEDS: TYLENOL PO PRN (13:30)
[2017-10-16] MEDS: VITAMIN D3 PO SCH (13:31)
[2017-10-16] MEDS: SODIUM CHLORIDE FLUSH SYRINGE 10 ML IV SCH (13:32)
[2017-10-16 14:51] VITALS: BP 111/75
--- NOTE | 2017-10-16 16:36 | Cardiac Catherization Report ---
CARDIAC CATHETERIZATION REFERRING PHYSICIANS: Dr. Lara and Dr. Kelsey Deluna. INDICATION FOR PROCEDURE: The patient is a pleasant 52-year-old -[place] female with a strong family history of premature heart disease and a markedly abnormal EKG and chest pain, who is admitted for unstable angina and referred for left heart catheterization. Risks, benefits, and potential alternatives were explained at length prior to informed consent. PROCEDURE IN DETAIL: The patient was brought to catheterization lab in a postabsorptive state, prepped and draped in sterile fashion. An 8 mL of 2% lidocaine was used to anesthetize the right wrist. A standard 6-[place] hydrophilic sheath used to cannulate the right radial artery via modified Seldinger technique. All exchanges performed to exchange a J-tip guidewire. Tiro catheter was used to engage left main. No dampening or ventricularization. Cineangiography was performed in all projections. JR4 catheter was used to cross the aortic valve under fluoroscopic guidance. Left ventriculography performed in 30 HUGGINS and 30 PERUV[place] projections via hand injections, catheter flushed. Manual pullback performed with continuous pressure monitoring. Catheter was used to engage the right coronary. No dampening or ventricularization. Cineangiography was performed in all projections. Next, catheter was removed from the body. Due to recurrent chest pain and unremarkable coronary arteries, we performed a root aortogram. Root aortography was performed in the PERUVIAN projection with a power injector. Next, catheter was removed from the body of wire, sheath removed. Manual pressure was used to achieve hemostasis. Moderate sedation was used and directly supervised by administration of fentanyl, and Versed was directly supervised by myself. SEDATION START TIME: 10:20 SEDATION END TIME: 10:48 DATA: Aortic pressure is 120/70, LV pressure 120, LVEDP of 20 mmHg. Left ventriculography revealed normal systolic performance. Estimated ejection fraction of 55%-60%. CORONARY ANATOMY: This is a right dominant system. Right coronary is a moderate sized vessel, courses AV groove, distally bifurcates in the posterior descending and posterolateral branch. First image, there is a slow flow, JUAN 2 flow. Retook the image after the aortogram, JUAN 3 flow, no significant disease. Left main without significant disease, bifurcates left anterior descending and left circumflex. Left circumflex is a moderate sized vessel, courses AV groove, distally bifurcates in the posterior descending and posterolateral branch. JUAN 2 flow noted in the LAD as well. LAD with a moderate sized vessel, courses anterior intergroove, wraps around the apex, no significant disease. There is a moderate sized intramyocardial bridge without evidence of diastolic collapse, JUAN 2 flow. No significant disease. Root aortography reveals normal caliber. No evidence of penetrating aortic ulcer or dissection, normal great vessel anatomy. No aortic insufficiency. CONCLUSIONS: 1. No angiographic evidence of significant epicardial coronary disease in this right dominant system. 2. Mild sluggish JUAN 2 flow in the right coronary and LAD. 3. Normal left ventricular systolic performance, estimated ejection fraction of 55-60%. 4. No evidence of aortic stenosis. 5. Root aortography within normal limits without evidence of dissection, penetrating aortic ulcer, aortic insufficiency. At this point, recommend medical management, risk factor modification. Continued chest pain unclear if this is microvascular/endothelial dysfunction given sluggish flow. Continue statin therapy. Add Ranexa. Stable cardiac status. Standard radial care, results of procedure explained in length to the patient and family. All questions and concerns were addressed. JOB# [id number] [email or web address]/[email or web address]
--- NOTE | 2017-10-16 17:15 | Discharge Summary ---
Providers - Providers Date of Admission: 10/13/17 13:41 Date of discharge: 10/16/17 Attending physician: MAYANK LAMB 10/13/17 20:03 Consult to Physician [CONS] Routine Comment: Consulting Provider: YANIRA SHEIKH Physician Instructions: Reason For Exam: ACS 10/16/17 10:53 Consult to Cardiac Rehabilitation [CONS] Routine Reason For Exam: Cardiac Rehab Evaluation Primary care physician: BAIT PAINTER Hospitalization Condition: Fair Disposition: DC-01 TO HOME OR SELFCARE Core Measure Documentation - Palliative Care Palliative Care/ Comfort Measures: Not Applicable - Core Measures Any of the following diagnoses?: none Exam - Constitutional Vitals: Temp Pulse Resp BP Pulse Ox 97.7 F 61 20 111/75 97 10/16/17 14:49 10/16/17 14:49 10/16/17 14:49 10/16/17 14:49 10/16/17 14:49 Plan Activity: other (No strenous activity until cleared by cardiology) Diet: low fat, low cholesterol, low salt Additional Instructions: 1.Follow up with PCP in 1 week. 2.Follow up with Dr. ISRRAEL Deluna on 10/24/17 Follow up with: KODY DELUNA MD [Staff Physician] - 7 Days ([place] office with Dr. ISRRAEL Deluna on 10/24/2017 @ 3:30PM) PRIMARY CAREMD [Primary Care Provider] - 3-5 Days Prescriptions: Metoprolol [Lopressor TAB] 12.5 mg PO BID #60 tablet Pravastatin [Pravachol] 20 mg PO QHS #30 tablet Ranolazine ER [Ranexa ER] 500 mg PO BID #60 tablet
[2017-10-16] MEDS: SINGULAIR PO SCH (18:00)
[2017-10-16] MEDS ORDERED: PRAVACHOL PO SCH (22:00)
[2017-10-16] MEDS ORDERED: RANEXA ER PO SCH (22:00)
[2017-10-17] MEDS ORDERED: BABY ASPIRIN PO SCH (10:00)
== END 2017-10-16 19:45 | disposition home or self-care (01) ==
LOC: ED 11:08 → 4A 13:41
PROVIDERS: ADMIT Internal Medicine; ATTEND Internal Medicine
DX: I20.0 Unstable angina (principal); I10 Essential (primary) hypertension; E78.5 Hyperlipidemia, unspecified; J45.909 Unspecified asthma, uncomplicated; D72.829 Elevated white blood cell count, unspecified; K21.9 Gastro-esophageal reflux disease without esophagitis; E78.00 Pure hypercholesterolemia, unspecified; I25.2 Old myocardial infarction; R94.31 Abnormal electrocardiogram [ECG] [EKG]; R79.89 Other specified abnormal findings of blood chemistry; Z82.49 Family history of ischemic heart disease and other diseases of the circulatory system
CPT/HCPCS: 36415; 71046; 80048; 80061; 81001; 84484; 85007; 85025; 85610; 85730; 87040; 93005; 93010; 93306; 93458; 93567; 96372; 96374; 96375; 96376; 99285; A9270; C1887; C1894; G0378; J1644; J1650; J2250; J2270; J2405; J3010; J7040; J7509; Q9967

== ENCOUNTER 2019-09-29 16:10 | Inpatient (IN) | payer OTHER ==
[2019-09-29] MEDS ORDERED: SODIUM CHLORIDE 0.9% 500 ML 500 ML IV ONE (16:24)
[2019-09-29] MEDS ORDERED: IBUPROFEN 600 MG TAB PO ONE ×2 (16:32→16:34)
[2019-09-29 16:39] LABS: Hematocrit 42.5 % (30.3-42.9); Hemoglobin 13.9 gm/dl (10.1-14.3); Mean Corpuscular HGB Conc 33 % (30-34); Mean Corpuscular Volume 89 fl (79-97); Red Blood Count 4.78 M/mm3 (3.65-5.03); Red Cell Distribution Width 14.6 % (13.2-15.2)
--- NOTE | 2019-09-29 16:53 | XRay Report ---
CHEST 1 VIEW INDICATION: possible Sepsis. COMPARISON: 10/14/2017. FINDINGS: Support devices: None. Heart: Within normal limits. Lungs/Pleura: Mild opacity left lung base. Additional findings: None. IMPRESSION: Atelectasis versus developing infiltrate left lung base. Signer Name: Sky Bundy MD Signed: 09/29/2019 4:49 PM Workstation Name: [id number]
[2019-09-29 16:55] LABS: INR 0.99 (0.87-1.13)
--- NOTE | 2019-09-29 16:57 | Emergency Department Report ---
ED Fever HPI - General Chief Complaint: Upper Respiratory Infection Stated Complaint: FLU SYM Time Seen by Provider: 09/29/19 16:38 Source: patient Exam Limitations: no limitations - History of Present Illness Initial Comments: Mrs. Rankin is a 54-year-old female with history of asthma dyslipidemia hypertension who presents with fever muscle aches cough clear sputum production for the past week. She returned from [place] a week ago by car. 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 She has been exposed to a lot of people this week. She received flu vaccine this season. Timing/Duration: week (1) Fever Severity/Quality: greater than 102 F Associated Symptoms: cough, muscle aches, other (Fatigue) ED Review of Systems ROS: Stated complaint: FLU SYM Other details as noted in HPI Comment: All other systems reviewed and negative Constitutional: fever, malaise Respiratory: cough Musculoskeletal: myalgia ED Past Medical Hx - Past Medical History Previous Medical History?: Yes Hx Hypertension: Yes Hx Heart Attack/AMI: Yes Additional medical history: High cholesterol. - Surgical History Past Surgical History?: No - Social History Smoking Status: Never Smoker Substance Use Type: Prescribed - Medications Home Medications: Home Medications Medication Instructions Recorded Confirmed Last Taken Type Aspirin [Aspirin EC] 81 mg PO DAILY 10/13/17 10/13/17 10/12/17 History Cholecalciferol (Vitamin D3) 2,000 unit PO QDAY 10/13/17 10/13/17 10/12/17 History [Vitamin D3 2,000 UNIT CAP] Montelukast [Singulair] 10 mg PO QPM 10/13/17 10/13/17 10/12/17 History methylPREDNISolone 4 mg PO DAILY 10/13/17 10/13/17 10/12/17 History [Methylprednisolone] Metoprolol [Lopressor TAB] 12.5 mg PO BID #60 tablet 10/16/17 Unknown Rx Pravastatin [Pravachol] 20 mg PO QHS #30 tablet 10/16/17 Unknown Rx Ranolazine ER [Ranexa ER] 500 mg PO BID #60 tablet 10/16/17 Unknown Rx ED Physical Exam - General Limitations: No Limitations General appearance: alert, in no apparent distress - Head Head exam: Present: atraumatic, normocephalic - Eye Eye exam: Present: normal appearance - ENT ENT exam: Present: mucous membranes moist - Neck Neck exam: Present: normal inspection, full ROM - Respiratory Respiratory exam: Present: normal lung sounds bilaterally, rales (Left left mid back). Absent: respiratory distress, wheezes, rhonchi - Cardiovascular Cardiovascular Exam: Present: regular rate, normal rhythm, normal heart sounds. Absent: systolic murmur, diastolic murmur, rubs, gallop - GI/Abdominal GI/Abdominal exam: Present: soft, normal bowel sounds. Absent: distended, tenderness, guarding, rebound - Extremities Exam Extremities exam: Present: normal inspection - Neurological Exam Neurological exam: Present: alert, oriented X3 - Psychiatric Psychiatric exam: Present: normal affect, normal mood - Skin Skin exam: Present: warm, dry, intact, normal color. Absent: rash ED Course Vital Signs 09/29/19 09/29/19 16:18 17:25 Temperature 102.5 F H Pulse Rate 103 H Respiratory 20 18 Rate Blood Pressure 119/69 O2 Sat by Pulse 92 Oximetry ED Medical Decision Making - Lab Data Result diagrams: 09/29/19 16:27 09/29/19 16:27 - Radiology Data Radiology results: report reviewed Left lower lobe infiltrate versus atelectasis - Medical Decision Making Mr. Rankin presents with febrile illness acute respiratory failure hypoxia, oxygen saturation 92% on room air no wheezing exam but lung exam does correspond to chest radiograph findings. Community-acquired pneumonia versus COVID19 infection are to be considered. Patient has been placed on respiratory and droplet precautions considering her recent travel from [place] and working with a multitude of persons at [employer] this week Admitted to the hospital service in fair condition I have filled PUI online COVID request for the [place] [facility]. Critical care attestation.: If time is entered above; I have spent that time in minutes in the direct care of this critically ill patient, excluding procedure time. ED Disposition Clinical Impression: Acute respiratory failure with hypoxia, Community acquired pneumonia Disposition: OP ADMIT IP TO THIS HOSP Is pt being admited?: Yes Does the pt Need Aspirin: No Condition: Stable
[2019-09-29 16:59] LABS: Alanine Aminotransferase 12 units/L (7-56); BUN/Creatinine Ratio 9; Blood Urea Nitrogen 9 mg/dL (7-17); Calcium 9.2 mg/dL (8.4-10.2); Hemolysis Index 9
[2019-09-29 17:54] LABS: Basophils % (Manual) 0 % (0.0-1.8); Monocytes % (Manual) 0 % (0.0-7.3); Platelet Estimate Consistent w Auto; RBC Morphology Normal; Total Cells Counted 100
[2019-09-29 17:55] LABS: Platelet Count 210 K/mm3 (140-440)
[2019-09-29] MEDS ORDERED: AZITHROMYCIN 500 MG in SODIUM CHLORIDE 0.9% 250ML 250 ML IV SCH (18:00)
[2019-09-29] MEDS ORDERED: cefTRIAXone/NS 1 GM/50 ML 1 GM/50 ML BAG IV ONE ×2 (19:06→19:17)
[2019-09-29] MEDS: cefTRIAXone/NS 2 GM/100 ML 2 GM/100 ML BAG IV SCH (19:14)
--- NOTE | 2019-09-29 21:57 | History and Physical Report ---
History of Present Illness Date of examination: 09/29/19 Date of admission: 09/29/19 17:59 Chief complaint: Fever 2 days History of present illness: Mrs. Rankin is a 54-year-old female with history of asthma dyslipidemia hypertension who presents with fever muscle aches cough clear sputum production for the past week. She returned from [place] a week ago by car. 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 She has been exposed to a lot of people this week. She received flu vaccine this season. Timing/Duration: week (1) Fever Severity/Quality: greater than 102 F Associated Symptoms: cough, muscle aches, other (Fatigue) Past Medical History Previous Medical History?: Yes Hx Hypertension: Yes Hx Heart Attack/AMI: Yes Additional medical history: High cholesterol. Surgical History Past Surgical History?: No Surgical History Smoking Status: Never Smoker Substance Use Type: Prescribed Family History Htn - Medications Home Medications: Home Medications Medication Instructions Recorded Confirmed Last Taken Type Aspirin [Aspirin EC] 81 mg PO DAILY 10/13/17 10/13/17 10/12/17 History Cholecalciferol (Vitamin D3) 2,000 unit PO QDAY 10/13/17 10/13/17 10/12/17 History [Vitamin D3 2,000 UNIT CAP] Montelukast [Singulair] 10 mg PO QPM 10/13/17 10/13/17 10/12/17 History methylPREDNISolone 4 mg PO DAILY 10/13/17 10/13/17 10/12/17 History [Methylprednisolone] Metoprolol [Lopressor TAB] 12.5 mg PO BID #60 tablet 10/16/17 Unknown Rx Pravastatin [Pravachol] 20 mg PO QHS #30 tablet 10/16/17 Unknown Rx Ranolazine ER [Ranexa ER] 500 mg PO BID #60 tablet 10/16/17 Unknown Rx Review of Systems ROS: Stated complaint: FLU SYM Other details as noted in HPI Comment: All other systems reviewed and negative Constitutional: fever, malaise Respiratory: cough Musculoskeletal: myalgia Medications and Allergies Allergies Allergy/AdvReac Type Severity Reaction Status Date / Time No Known Allergies Allergy Unverified 09/14/17 11:51 Home Medications Medication Instructions Recorded Confirmed Last Taken Type Aspirin [Aspirin EC] 81 mg PO DAILY 10/13/17 10/13/17 10/12/17 History Cholecalciferol (Vitamin D3) 2,000 unit PO QDAY 10/13/17 10/13/17 10/12/17 History [Vitamin D3 2,000 UNIT CAP] Montelukast [Singulair] 10 mg PO QPM 10/13/17 10/13/17 10/12/17 History methylPREDNISolone 4 mg PO DAILY 10/13/17 10/13/17 10/12/17 History [Methylprednisolone] Metoprolol [Lopressor TAB] 12.5 mg PO BID #60 tablet 10/16/17 Unknown Rx Pravastatin [Pravachol] 20 mg PO QHS #30 tablet 10/16/17 Unknown Rx Ranolazine ER [Ranexa ER] 500 mg PO BID #60 tablet 10/16/17 Unknown Rx Active Meds: Active Medications Ceftriaxone Sodium (Rocephin/Ns 2 Gm/100 Ml) 2 gm in 100 mls @ 200 mls/hr IV Q24HR [facility]; Protocol Last Admin: 09/29/19 19:14 Dose: 200 mls/hr Documented by: Azithromycin 500 mg/ Sodium (Chloride) 250 mls @ 250 mls/hr IV Q24HR [facility]; Protocol Last Admin: 09/29/19 20:01 Dose: 250 mls/hr Documented by: Exam - Constitutional Vitals: Temp Pulse Resp BP Pulse Ox 98.5 F 55 L 16 87/55 90 09/29/19 20:48 09/29/19 20:48 09/29/19 20:48 09/29/19 21:17 09/29/19 20:48 General appearance: Present: no acute distress, well-nourished - EENT Eyes: Present: PERRL ENT: hearing intact, clear oral mucosa - Neck Neck: Present: supple, normal ROM - Respiratory Respiratory effort: normal Respiratory: bilateral: CTA, rhonchi (Scattered) - Cardiovascular Heart rate: 78 Rhythm: regular Heart Sounds: Present: S1 & S2. Absent: rub, click - Extremities Extremities: no ischemia, pulses intact, pulses symmetrical, No edema Peripheral Pulses: within normal limits - Abdominal General gastrointestinal: Present: soft, non-tender, non-distended, normal bowel sounds Female genitourinary: Present: normal - Rectal Rectal Exam: deferred - Integumentary Integumentary: Present: clear, warm, dry - Musculoskeletal Musculoskeletal: gait normal, strength equal bilaterally - Psychiatric Psychiatric: appropriate mood/affect, intact judgment & insight - Neurologic Neurologic: CNII-XII intact, moves all extremities - Allied Health Allied health notes reviewed: nursing, case management Results - Labs CBC & Chem 7: 09/30/19 Unknown 09/30/19 Unknown Labs: Laboratory Last Values WBC 7.8 K/mm3 (4.5-11.0) 09/29/19 16: RBC 4.78 M/mm3 (3.65-5.03) 09/29/19 16: Hgb 13.9 gm/dl (10.1-14.3) 09/29/19 16: Hct 42.5 % (30.3-42.9) 09/29/19 16: MCV 89 fl (79-97) 09/29/19 16: MCH 29 pg (28-32) 09/29/19 16: MCHC 33 % (30-34) 09/29/19 16: RDW 14.6 % (13.2-15.2) 09/29/19 16: Plt Count 210 K/mm3 (140-440) 09/29/19 16:27 Add Manual Diff Complete 09/29/19 16: Total Counted 100 09/29/19 16: Seg Neuts % (Manual) 87.0 % (40.0-70.0) H 09/29/19 16: Band Neutrophils % 0 % 09/29/19 16:27 Lymphocytes % (Manual) 12.0 % (13.4-35.0) L 09/29/19 16:27 Reactive Lymphs % (Man) 0 % 09/29/19 16: Monocytes % (Manual) 0 % (0.0-7.3) 09/29/19 16: Eosinophils % (Manual) 1.0 % (0.0-4.3) 09/29/19 16: Basophils % (Manual) 0 % (0.0-1.8) 09/29/19 16:27 Metamyelocytes % 0 % 09/29/19 16:27 Myelocytes % 0 % 09/29/19 16:27 Promyelocytes % 0 % 09/29/19 16:27 Blast Cells % 0 % 09/29/19 16:27 Nucleated RBC % Not Reportable 09/29/19 16:27 Seg Neutrophils # Man 6.8 K/mm3 (1.8-7.7) 09/29/19 16:27 Band Neutrophils # 0.0 K/mm3 09/29/19 16:27 Lymphocytes # (Manual) 0.9 K/mm3 (1.2-5.4) L 09/29/19 16:27 Abs React Lymphs (Man) 0.0 K/mm3 09/29/19 16:27 Monocytes # (Manual) 0.0 K/mm3 (0.0-0.8) 09/29/19 16:27 Eosinophils # (Manual) 0.1 K/mm3 (0.0-0.4) 09/29/19 16:27 Basophils # (Manual) 0.0 K/mm3 (0.0-0.1) 09/29/19 16:27 Metamyelocytes # 0.0 K/mm3 09/29/19 16:27 Myelocytes # 0.0 K/mm3 09/29/19 16:27 Promyelocytes # 0.0 K/mm3 09/29/19 16:27 Blast Cells # 0.0 K/mm3 09/29/19 16:27 WBC Morphology Not Reportable 09/29/19 16:27 Hypersegmented Neuts Not Reportable 09/29/19 16:27 Hyposegmented Neuts Not Reportable 09/29/19 16:27 Hypogranular Neuts Not Reportable 09/29/19 16:27 Smudge Cells Not Reportable 09/29/19 16:27 Toxic Granulation Not Reportable 09/29/19 16:27 Toxic Vacuolation Not Reportable 09/29/19 16:27 Dohle Bodies Not Reportable 09/29/19 16:27 Pelger-Huet Anomaly Not Reportable 09/29/19 16:27 Nancy Rods Not Reportable 09/29/19 16:27 Platelet Estimate Consistent w auto 09/29/19 16:27 Clumped Platelets Not Reportable 09/29/19 16:27 Plt Clumps, EDTA Not Reportable 09/29/19 16:27 Large Platelets Not Reportable 09/29/19 16:27 Giant Platelets Not Reportable 09/29/19 16:27 Platelet Satelliting Not Reportable 09/29/19 16:27 Plt Morphology Comment Not Reportable 09/29/19 16:27 RBC Morphology Normal 09/29/19 16:27 Dimorphic RBCs Not Reportable 09/29/19 16:27 Polychromasia Not Reportable 09/29/19 16:27 Hypochromasia Not Reportable 09/29/19 16:27 Poikilocytosis Not Reportable 09/29/19 16:27 Anisocytosis Not Reportable 09/29/19 16:27 Microcytosis Not Reportable 09/29/19 16:27 Macrocytosis Not Reportable 09/29/19 16:27 Spherocytes Not Reportable 09/29/19 16:27 Pappenheimer Bodies Not Reportable 09/29/19 16:27 Sickle Cells Not Reportable 09/29/19 16:27 Target Cells Not Reportable 09/29/19 16:27 Tear Drop Cells Not Reportable 09/29/19 16:27 Ovalocytes Not Reportable 09/29/19 16:27 Helmet Cells Not Reportable 09/29/19 16:27 Constantino-[place] Bodies Not Reportable 09/29/19 16:27 Kathryn Rings Not Reportable 09/29/19 16:27 Enzo Cells Not Reportable 09/29/19 16:27 Bite Cells Not Reportable 09/29/19 16:27 Crenated Cell Not Reportable 09/29/19 16:27 Elliptocytes Not Reportable 09/29/19 16:27 Acanthocytes (Spur) Not Reportable 09/29/19 16:27 Rouleaux Not Reportable 09/29/19 16:27 Hemoglobin C Crystals Not Reportable 09/29/19 16:27 Schistocytes Not Reportable 09/29/19 16:27 Malaria parasites Not Reportable 09/29/19 16:27 Suman Bodies Not Reportable 09/29/19 16:27 Hem Pathologist Commnt No 09/29/19 16:27 PT 13.2 Sec. (12.2-14.9) 09/29/19 16:27 INR 0.99 (0.87-1.13) 09/29/19 16:27 VBG pH 7.442 (7.320-7.420) H 09/29/19 16:27 Sodium 134 mmol/L (137-145) L 09/29/19 16:27 Potassium 3.8 mmol/L (3.6-5.0) 09/29/19 16:27 Chloride 97.4 mmol/L (98-107) L 09/29/19 16:27 Carbon Dioxide 21 mmol/L (22-30) L 09/29/19 16:27 Anion Gap 19 mmol/L 09/29/19 16:27 BUN 9 mg/dL (7-17) 09/29/19 16:27 Creatinine 1.0 mg/dL (0.7-1.2) 09/29/19 16:27 Estimated GFR > 60 ml/min 09/29/19 16:27 BUN/Creatinine Ratio 9 % 09/29/19 16:27 Glucose 105 mg/dL (65-100) H 09/29/19 16:27 Lactic Acid 0.90 mmol/L (0.7-2.0) 09/29/19 20:37 Calcium 9.2 mg/dL (8.4-10.2) 09/29/19 16:27 Total Bilirubin 0.40 mg/dL (0.1-1.2) 09/29/19 16:27 AST 28 units/L (5-40) 09/29/19 16:27 ALT 12 units/L (7-56) 09/29/19 16:27 Alkaline Phosphatase 59 units/L (35-129) 09/29/19 16:27 Total Protein 7.8 g/dL (6.3-8.2) 09/29/19 16:27 Albumin 4.0 g/dL (3.9-5) 09/29/19 16:27 Albumin/Globulin Ratio 1.1 % 09/29/19 16:27 Influenza A (Rapid) Negative (Negative) 09/29/19 21:29 Influenza B (Rapid) Negative (Negative) 09/29/19 21:29 - Imaging and Cardiology EKG: report reviewed Chest x-ray: report reviewed Imaging and Cardiology: Chest x-ray IMPRESSION: Atelectasis versus developing infiltrate left lung base. Assessment and Plan Advance Directives: Yes (Full code) VTE prophylaxis?: Chemical Plan of care discussed with patient/family: Yes - Patient Problems (1) SIRS (systemic inflammatory response syndrome) Current Visit: Yes Status: Acute Plan to address problem: C/w SIRS (2) Acute respiratory failure with hypoxia Current Visit: Yes Status: Acute Plan to address problem: Hypoxic initiallly Improved withO2 (3) Community acquired pneumonia Current Visit: Yes Status: Acute Qualifiers: Laterality: right Plan to address problem: IV Rocephin And IV Zithromax for now CIVID 19 test requested Form filled out (4) HTN (hypertension) Current Visit: No Status: Chronic Qualifiers: Hypertension type: essential hypertension Qualified Code(s): I10 - Essential (primary) hypertension Plan to address problem: COnt antihypertensives (5) DVT prophylaxis Current Visit: No Status: Acute
[2019-09-29] MEDS ORDERED: NON-FORMULARY EACH (Cholecalciferol (Vitamin D3) [Vitamin D3 2,000 Unit Cap] 2,000 UNIT) PO SCH (22:00)
[2019-09-29] MEDS ORDERED: HYDROmorphone 1 MG/1 ML INJ IV PRN (22:01)
[2019-09-29] MEDS ORDERED: ONDANSETRON 4 MG/2 ML INJ IV PRN (22:01)
[2019-09-29] MEDS ORDERED: METOCLOPRAMIDE 10 MG/2 ML INJ IV PRN (22:01)
[2019-09-29] MEDS ORDERED: ACETAMINOPHEN 325 MG TAB PO PRN (22:01)
[2019-09-29] MEDS: PRAVASTATIN 20 MG TAB PO SCH (23:32)
[2019-09-29] MEDS: SODIUM CHLORIDE 0.9% 1000 ML 1,000 ML IV SCH (23:33)
[2019-09-29] MEDS: RANOLAZINE ER 500 MG TAB 12HR PO SCH (23:58)
[2019-09-29] MEDS: METOPROLOL TARTRATE 25 MG TAB PO SCH (23:58)
[2019-09-30] MEDS ORDERED: ALBUTEROL 2.5 MG/3 ML NEBU IH SCH
[2019-09-30] MEDS ORDERED: ALBUTEROL 8.5 GM INHALATION IH SCH
[2019-09-30] MEDS ORDERED: ALBUTEROL 2.5 MG/3 ML NEBU IH PRN (00:56)
[2019-09-30] MEDS: oxyCODONE /ACETAMINOPHEN 5-325MG TAB PO PRN (03:45)
[2019-09-30 05:50] LABS: Basophils % (Auto) 0.3 % (0.0-1.8); Hematocrit 35.4 % (30.3-42.9); Hemoglobin 11.9 gm/dl (10.1-14.3); Lymphocytes # (Auto) 0.7 K/mm3 (1.2-5.4); Lymphocytes % (Auto) 15.1 % (13.4-35.0); Mean Corpuscular HGB Conc 34 % (30-34); Mean Corpuscular Volume 88 fl (79-97); Monocytes # (Auto) 0.2 K/mm3 (0.0-0.8); Monocytes % (Auto) 4.2 % (0.0-7.3); Platelet Count 243 K/mm3 (140-440); Red Blood Count 4.03 M/mm3 (3.65-5.03); Red Cell Distribution Width 14.3 % (13.2-15.2)
[2019-09-30 06:17] LABS: Alanine Aminotransferase 9 units/L (7-56); Albumin 3.5 g/dL (3.9-5); BUN/Creatinine Ratio 9; Blood Urea Nitrogen 9 mg/dL (7-17); Calcium 8.4 mg/dL (8.4-10.2); Hemolysis Index 2
[2019-09-30] MEDS: ALBUTEROL 2.5 MG/3 ML NEBU IH SCH ×3 (08:47→20:42)
[2019-09-30] MEDS: ASPIRIN EC 81 MG TAB PO SCH (10:51)
[2019-09-30] MEDS: CHOLECALCIFEROL (VIT D3) 1000 UNIT (25 mcg) TAB PO SCH (10:52)
[2019-09-30] MEDS: methylPREDNISolone 4 MG TAB PO SCH (10:54)
[2019-09-30] MEDS: METOPROLOL TARTRATE 25 MG TAB PO SCH ×2 (10:56→22:37)
[2019-09-30] MEDS: cefTRIAXone/NS 2 GM/100 ML 2 GM/100 ML BAG IV SCH (10:57)
[2019-09-30] MEDS: RANOLAZINE ER 500 MG TAB 12HR PO SCH ×2 (11:34→22:37)
[2019-09-30] MEDS: AZITHROMYCIN 250 MG TAB PO SCH (12:50)
--- NOTE | 2019-09-30 15:05 | Consultation ---
History of Present Illness - Reason for Consult Consult date: 09/30/19 - History of Present Illness 54-year-old female past medical history asthma, hyperlipidemia, hypertension admitted to the hospital with flulike symptoms. She notes that approximately a week prior to admission she developed fevers with associated myalgias, cough with clear sputum. 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 Around the onset of her symptoms, she drove back down to [place] from [place]. She notes that she did receive her flu vaccine this season. Febrile to 102.5 degrees with a normal white count of 5 with a mild lymphopenia. She is currently receiving ceftriaxone and azithromycin. Her influenza serologies are negative. Her blood and urine cultures are pending. Imaging personally reviewed: Chest x-ray: Left lower lobe pneumonia. Review of Systems: Bold if positive, otherwise negative General: fevers, chills, rigors HEENT: visual disturbance, diplopia, eye pain Respiratory: cough, sputum, hemoptysis, shortness of breath Cardiovascular: chest pain, syncope Gastrointestinal: nausea, vomiting, diarrhea, abdominal pain Genitourinary: dysuria, hematuria, flank pain Musculoskeletal: neck pain, back pain, joint pain, edema Neurologic: headaches, seizures Hematologic: easy bruising or bleeding Endocrine: night sweats, acute weight loss Skin: rash, jaundice, redness Psychiatric: suicidal, homicidal ideation Past History Past Medical History: other (As per HPI) Past Surgical History: No surgical history Social history: denies: smoking, alcohol abuse Family history: no significant family history Medications and Allergies Allergies Allergy/AdvReac Type Severity Reaction Status Date / Time No Known Allergies Allergy Unverified 09/14/17 11:51 Home Medications Medication Instructions Recorded Confirmed Last Taken Type Aspirin [Aspirin EC] 81 mg PO DAILY 10/13/17 10/13/17 10/12/17 History Cholecalciferol (Vitamin D3) 2,000 unit PO QDAY 10/13/17 10/13/17 10/12/17 History [Vitamin D3 2,000 UNIT CAP] Montelukast [Singulair] 10 mg PO QPM 10/13/17 10/13/17 10/12/17 History methylPREDNISolone 4 mg PO DAILY 10/13/17 10/13/17 10/12/17 History [Methylprednisolone] Metoprolol [Lopressor TAB] 12.5 mg PO BID #60 tablet 10/16/17 Unknown Rx Pravastatin [Pravachol] 20 mg PO QHS #30 tablet 10/16/17 Unknown Rx Ranolazine ER [Ranexa ER] 500 mg PO BID #60 tablet 10/16/17 Unknown Rx Active Meds: Active Medications Acetaminophen (Tylenol) 650 mg PO Q4H PRN PRN Reason: Pain MILD(1-3)/Fever >100.5/FLORES Last Admin: 09/30/19 13:01 Dose: 650 mg Documented by: Albuterol (Proventil) 2.5 mg IH TIDRT [facility] Last Admin: 09/30/19 14:14 Dose: 2.5 mg Documented by: Albuterol (Proventil) 2.5 mg IH Q4HRT PRN PRN Reason: Shortness Of Breath Aspirin (Halfprin Ec) 81 mg PO DAILY [facility] Last Admin: 09/30/19 10:51 Dose: 81 mg Documented by: Azithromycin (Zithromax) 500 mg PO QDAY [facility] Stop: 10/03/19 10:01 Last Admin: 09/30/19 12:50 Dose: 500 mg Documented by: Cholecalciferol (Vitamin D3) 2,000 unit PO QDAY [facility] Last Admin: 09/30/19 10:52 Dose: 2,000 unit Documented by: Hydromorphone HCl (Dilaudid) 0.5 mg IV Q3H PRN PRN Reason: Pain , Severe (7-10) Ceftriaxone Sodium (Rocephin/Ns 2 Gm/100 Ml) 2 gm in 100 mls @ 200 mls/hr IV Q24HR [facility]; Protocol Last Admin: 09/30/19 10:57 Dose: 200 mls/hr Documented by: Sodium Chloride (Nacl 0.9% 1000 Ml) 1,000 mls @ 42 mls/hr IV DIRECT [facility] Last Admin: 09/29/19 23:33 Dose: 42 mls/hr Documented by: Methylprednisolone (Medrol) 4 mg PO DAILY [facility] Last Admin: 09/30/19 10:54 Dose: 4 mg Documented by: Metoclopramide HCl (Reglan) 10 mg IV Q6H PRN PRN Reason: Nausea And Vomiting Metoprolol Tartrate (Metoprolol) 12.5 mg PO BID [facility] Last Admin: 09/30/19 10:56 Dose: Not Given Documented by: Montelukast Sodium (Singulair) 10 mg PO QPM [facility] Ondansetron HCl (Zofran) 4 mg IV Q8H PRN PRN Reason: Nausea And Vomiting Oxycodone/Acetaminophen (Percocet 5/325) 1 tab PO Q6H PRN PRN Reason: Pain, Moderate (4-6) Last Admin: 09/30/19 03:45 Dose: 1 tab Documented by: Pravastatin Sodium (Pravachol) 20 mg PO QHS [facility] Last Admin: 09/29/19 23:32 Dose: 20 mg Documented by: Ranolazine (Ranexa Er) 500 mg PO BID [facility] Last Admin: 09/30/19 11:34 Dose: 500 mg Documented by: Sodium Chloride (Sodium Chloride Flush Syringe 10 Ml) 10 ml IV BID [facility] Last Admin: 09/30/19 10:53 Dose: 10 ml Documented by: Sodium Chloride (Sodium Chloride Flush Syringe 10 Ml) 10 ml IV PRN PRN PRN Reason: LINE FLUSH Physical Examination - Physical Exam Narrative exam: Physical Exam: Constitutional: Alert, cooperative. No acute distress Head, Ears, Nose: Normocephalic, atraumatic. External ears, nose normal Eyes: Conjunctivae/corneas clear. No icterus. No ptosis. Neck: Supple, no meningeal signs Oral: dentition fair, no thrush Cardiovascular: S1, S2 normal. Respiratory: L crackles GI: Soft, non-tender; bowel sounds normal. No peritoneal signs. Musculoskeletal: No pedal edema, no cyanosis. Skin: No rash or abscess Hem/Lymphatic: No palpable cervical or supraclavicular nodes. No lymphangitis Psych: Mood ok. Affect normal Neurological: Awake, alert, oriented. No gross abnormality - Constitutional Vitals: Vital Signs Temp Pulse Resp BP Pulse Ox 32.1 F L 90 16 114/71 94 09/30/19 06:21 09/30/19 14:20 09/30/19 14:20 09/30/19 06:21 09/30/19 10:00 Temperature -Last 24 Hours Temperature 32.1 F Temperature 99.3 F Temperature 98.5 F Temperature 102.5 F Results - Labs CBC & Chem 7: 09/30/19 Unknown 09/30/19 Unknown Labs: Abnormal lab results 09/29/19 09/29/19 09/29/19 Range/Units 16:27 16:27 16:27 Lymph # (1.2-5.4) K/mm3 Seg Neutrophils % (40.0-70.0) % Seg Neuts % (Manual) 87.0 H (40.0-70.0) % Lymphocytes % (Manual) 12.0 L (13.4-35.0) % Lymphocytes # (Manual) 0.9 L (1.2-5.4) K/mm3 VBG pH 7.442 H (7.320-7.420) Sodium 134 L (137-145) mmol/L Chloride 97.4 L (98-107) mmol/L Carbon Dioxide 21 L (22-30) mmol/L Glucose 105 H (65-100) mg/dL Albumin (3.9-5) g/dL 09/30/19 09/30/19 Range/Units Unknown Unknown Lymph # 0.7 L (1.2-5.4) K/mm3 Seg Neutrophils % 80.4 H (40.0-70.0) % Seg Neuts % (Manual) (40.0-70.0) % Lymphocytes % (Manual) (13.4-35.0) % Lymphocytes # (Manual) (1.2-5.4) K/mm3 VBG pH (7.320-7.420) Sodium (137-145) mmol/L Chloride (98-107) mmol/L Carbon Dioxide (22-30) mmol/L Glucose (65-100) mg/dL Albumin 3.5 L (3.9-5) g/dL Assessment and Plan Cultures: Blood culture 09/29/2019 no growth to date Urine culture 09/29/2019 no growth to date A/P: 54-year-old female past medical history hypertension, hyperlipidemia, asthma admitted to the hospital with flulike symptoms and concern for novel coronavirus infection. #COVID19 rule out: Paperwork filled out previously, appreciate assistance with this. We will follow-up results from [facility]. Continue droplet and contact precautions for now. She is fairly high risk given her frequent meaning of new people, and background of asthma. Monitor for decompensation. Has fevers and lymphopenia. #Pneumonia: Continue empiric antibiotics for now with ceftriaxone and azithromycin. No risk factors for resistant disease at this point. Monitor fevers. Recs: -Continue ceftriaxone azithromycin to complete 5 days for community-acquired pneumonia. -Follow-up COVID-19 testing from [facility]. -Order procalcitonin for morning labs -Follow-up cultures Thank you for the consult, will continue to follow Lewis Kang MD [facility] ([facility] M: [phone] O: [phone] F: [phone]
--- NOTE | 2019-09-30 16:23 | Progress Note ---
Assessment and Plan - Patient Problems (1) SIRS (systemic inflammatory response syndrome) Current Visit: Yes Status: Acute Plan to address problem: C/w SIRS (2) Acute respiratory failure with hypoxia Current Visit: Yes Status: Acute Plan to address problem: Hypoxic initiallly Improved withO2 (3) Community acquired pneumonia Current Visit: Yes Status: Acute Qualifiers: Laterality: right Plan to address problem: IV Rocephin And IV Zithromax for now CIVID 19 test requested Form filled out (4) HTN (hypertension) Current Visit: No Status: Chronic Qualifiers: Hypertension type: essential hypertension Qualified Code(s): I10 - Essential (primary) hypertension Plan to address problem: COnt antihypertensives (5) DVT prophylaxis Current Visit: No Status: Acute Subjective Date of service: 09/30/19 Objective - Constitutional Vitals: Vital Signs - 12hr 09/30/19 09/30/19 09/30/19 06:16 06:21 08:00 Temperature 99.3 F 32.1 F L Pulse Rate 83 Pulse Rate [ 92 H Anterior Bilateral] Respiratory 14 20 Rate Respiratory 16 Rate [Anterior Bilateral] Blood Pressure 92/48 114/71 Blood Pressure [Left] O2 Sat by Pulse 93 Oximetry 09/30/19 09/30/19 09/30/19 08:57 10:00 13:00 Temperature 102.1 F H Pulse Rate 93 H Pulse Rate [ Anterior Bilateral] Respiratory Rate Respiratory Rate [Anterior Bilateral] Blood Pressure Blood Pressure 99/67 [Left] O2 Sat by Pulse 97 94 97 Oximetry 09/30/19 14:20 Temperature Pulse Rate Pulse Rate [ 90 Anterior Bilateral] Respiratory Rate Respiratory 16 Rate [Anterior Bilateral] Blood Pressure Blood Pressure [Left] O2 Sat by Pulse Oximetry - Labs CBC & Chem 7: 09/30/19 Unknown 09/30/19 Unknown Labs: Abnormal lab results 09/29/19 09/29/19 09/29/19 Range/Units 16:27 16:27 16:27 Lymph # (1.2-5.4) K/mm3 Seg Neutrophils % (40.0-70.0) % Seg Neuts % (Manual) 87.0 H (40.0-70.0) % Lymphocytes % (Manual) 12.0 L (13.4-35.0) % Lymphocytes # (Manual) 0.9 L (1.2-5.4) K/mm3 VBG pH 7.442 H (7.320-7.420) Sodium 134 L (137-145) mmol/L Chloride 97.4 L (98-107) mmol/L Carbon Dioxide 21 L (22-30) mmol/L Glucose 105 H (65-100) mg/dL Albumin (3.9-5) g/dL 09/30/19 09/30/19 Range/Units Unknown Unknown Lymph # 0.7 L (1.2-5.4) K/mm3 Seg Neutrophils % 80.4 H (40.0-70.0) % Seg Neuts % (Manual) (40.0-70.0) % Lymphocytes % (Manual) (13.4-35.0) % Lymphocytes # (Manual) (1.2-5.4) K/mm3 VBG pH (7.320-7.420) Sodium (137-145) mmol/L Chloride (98-107) mmol/L Carbon Dioxide (22-30) mmol/L Glucose (65-100) mg/dL Albumin 3.5 L (3.9-5) g/dL
[2019-09-30] MEDS: MONTELUKAST 10 MG TAB PO SCH (18:59)
[2019-09-30] MEDS: PRAVASTATIN 20 MG TAB PO SCH (22:37)
[2019-10-01] MEDS: oxyCODONE /ACETAMINOPHEN 5-325MG TAB PO PRN ×2 (01:29→08:26)
[2019-10-01] MEDS: SODIUM CHLORIDE 0.9% 1000 ML 1,000 ML IV SCH ×2 (05:56→20:05)
--- NOTE | 2019-10-01 08:07 | Progress Note ---
Assessment and Plan Assessment and plan: Sepsis secondary to pneumonia -Patient is being managed according to sepsis protocol, IV fluids, IV Rocephin and Zosyn -Follow blood cultures Patient is suspected for COVID-19 infection -ID was consulted -COVID-19 test ordered Hypertension -Currently blood pressure is on the low side of normal DVT prophylaxis -On Lovenox Disposition -Per clinical course Patient is still complaining generalized weakness and continued cough. Patient need to be monitored overnight. History Interval history: Patient was seen and evaluated this morning, patient was admitted for pneumonia, suspected COVID-19 Patient didn't have fever overnight. Patient is complaining cough and generalized weakness. Hospitalist Physical - Physical exam Narrative exam: Not in cardiopulmonary distress. The patient appeared well nourished and normally developed. Vital signs as documented. Head exam is unremarkable. No scleral icterus . Neck is without jugular venous distension, thyromegaly, or carotid bruits. Lungs are clear to auscultation. Cardiac exam reveals regular rate and Rhythm. Abdominal exam reveals normal bowel sounds, nontender, no organomegaly. Extremities are nonedematous and both femoral and pedal pulses are normal. SODA JERKER: Alert and oriented 3. No focal weakness. - Constitutional Vitals: Temp Pulse Resp BP Pulse Ox 99.8 F H 87 18 94/63 95 10/01/19 06:08 10/01/19 06:08 10/01/19 06:08 10/01/19 06:08 10/01/19 06:08 General appearance: Present: no acute distress, well-nourished Results - Labs CBC & Chem 7: 09/30/19 Unknown 09/30/19 Unknown Labs: Laboratory Last Values WBC 4.9 K/mm3 (4.5-11.0) 09/30/19 Unknown RBC 4.03 M/mm3 (3.65-5.03) 09/30/19 Unknown Hgb 11.9 gm/dl (10.1-14.3) 09/30/19 Unknown Hct 35.4 % (30.3-42.9) D 09/30/19 Unknown MCV 88 fl (79-97) 09/30/19 Unknown MCH 30 pg (28-32) 09/30/19 Unknown MCHC 34 % (30-34) 09/30/19 Unknown RDW 14.3 % (13.2-15.2) 09/30/19 Unknown Plt Count 243 K/mm3 (140-440) 09/30/19 Unknown Lymph % (Auto) 15.1 % (13.4-35.0) 09/30/19 Unknown [place] % (Auto) 4.2 % (0.0-7.3) 09/30/19 Unknown Eos % (Auto) 0.0 % (0.0-4.3) 09/30/19 Unknown Baso % (Auto) 0.3 % (0.0-1.8) 09/30/19 Unknown Lymph # 0.7 K/mm3 (1.2-5.4) L 09/30/19 Unknown [place] # 0.2 K/mm3 (0.0-0.8) 09/30/19 Unknown Eos # 0.0 K/mm3 (0.0-0.4) 09/30/19 Unknown Baso # 0.0 K/mm3 (0.0-0.1) 09/30/19 Unknown Add Manual Diff Complete 09/29/19 16:27 Total Counted 100 09/29/19 16:27 Seg Neutrophils % 80.4 % (40.0-70.0) H 09/30/19 Unknown Seg Neuts % (Manual) 87.0 % (40.0-70.0) H 09/29/19 16:27 Band Neutrophils % 0 % 09/29/19 16:27 Lymphocytes % (Manual) 12.0 % (13.4-35.0) L 09/29/19 16:27 Reactive Lymphs % (Man) 0 % 09/29/19 16:27 Monocytes % (Manual) 0 % (0.0-7.3) 09/29/19 16:27 Eosinophils % (Manual) 1.0 % (0.0-4.3) 09/29/19 16:27 Basophils % (Manual) 0 % (0.0-1.8) 09/29/19 16:27 Metamyelocytes % 0 % 09/29/19 16:27 Myelocytes % 0 % 09/29/19 16:27 Promyelocytes % 0 % 09/29/19 16:27 Blast Cells % 0 % 09/29/19 16:27 Nucleated RBC % Not Reportable 09/29/19 16:27 Seg Neutrophils # 3.9 K/mm3 (1.8-7.7) 09/30/19 Unknown Seg Neutrophils # Man 6.8 K/mm3 (1.8-7.7) 09/29/19 16:27 Band Neutrophils # 0.0 K/mm3 09/29/19 16:27 Lymphocytes # (Manual) 0.9 K/mm3 (1.2-5.4) L 09/29/19 16:27 Abs React Lymphs (Man) 0.0 K/mm3 09/29/19 16:27 Monocytes # (Manual) 0.0 K/mm3 (0.0-0.8) 09/29/19 16:27 Eosinophils # (Manual) 0.1 K/mm3 (0.0-0.4) 09/29/19 16:27 Basophils # (Manual) 0.0 K/mm3 (0.0-0.1) 09/29/19 16:27 Metamyelocytes # 0.0 K/mm3 09/29/19 16:27 Myelocytes # 0.0 K/mm3 09/29/19 16:27 Promyelocytes # 0.0 K/mm3 09/29/19 16:27 Blast Cells # 0.0 K/mm3 09/29/19 16:27 WBC Morphology Not Reportable 09/29/19 16:27 Hypersegmented Neuts Not Reportable 09/29/19 16:27 Hyposegmented Neuts Not Reportable 09/29/19 16:27 Hypogranular Neuts Not Reportable 09/29/19 16:27 Smudge Cells Not Reportable 09/29/19 16:27 Toxic Granulation Not Reportable 09/29/19 16:27 Toxic Vacuolation Not Reportable 09/29/19 16:27 Dohle Bodies Not Reportable 09/29/19 16:27 Pelger-Huet Anomaly Not Reportable 09/29/19 16:27 Nancy Rods Not Reportable 09/29/19 16:27 Platelet Estimate Consistent w auto 09/29/19 16:27 Clumped Platelets Not Reportable 09/29/19 16:27 Plt Clumps, EDTA Not Reportable 09/29/19 16:27 Large Platelets Not Reportable 09/29/19 16:27 Giant Platelets Not Reportable 09/29/19 16:27 Platelet Satelliting Not Reportable 09/29/19 16:27 Plt Morphology Comment Not Reportable 09/29/19 16:27 RBC Morphology Normal 09/29/19 16:27 Dimorphic RBCs Not Reportable 09/29/19 16:27 Polychromasia Not Reportable 09/29/19 16:27 Hypochromasia Not Reportable 09/29/19 16:27 Poikilocytosis Not Reportable 09/29/19 16:27 Anisocytosis Not Reportable 09/29/19 16:27 Microcytosis Not Reportable 09/29/19 16:27 Macrocytosis Not Reportable 09/29/19 16:27 Spherocytes Not Reportable 09/29/19 16:27 Pappenheimer Bodies Not Reportable 09/29/19 16:27 Sickle Cells Not Reportable 09/29/19 16:27 Target Cells Not Reportable 09/29/19 16:27 Tear Drop Cells Not Reportable 09/29/19 16:27 Ovalocytes Not Reportable 09/29/19 16:27 Helmet Cells Not Reportable 09/29/19 16:27 Constantino-Murdock Bodies Not Reportable 09/29/19 16:27 [place] Rings Not Reportable 09/29/19 16:27 Enzo Cells Not Reportable 09/29/19 16:27 Bite Cells Not Reportable 09/29/19 16:27 Crenated Cell Not Reportable 09/29/19 16:27 Elliptocytes Not Reportable 09/29/19 16:27 Acanthocytes (Spur) Not Reportable 09/29/19 16:27 Rouleaux Not Reportable 09/29/19 16:27 Hemoglobin C Crystals Not Reportable 09/29/19 16:27 Schistocytes Not Reportable 09/29/19 16:27 Malaria parasites Not Reportable 09/29/19 16:27 Suman Bodies Not Reportable 09/29/19 16:27 Hem Pathologist Commnt No 09/29/19 16:27 PT 13.2 Sec. (12.2-14.9) 09/29/19 16: INR 0.99 (0.87-1.13) 09/29/19 16:27 VBG pH 7.442 (7.320-7.420) H 09/29/19 16:27 Sodium 137 mmol/L (137-145) 09/30/19 Unknown Potassium 3.7 mmol/L (3.6-5.0) 09/30/19 Unknown Chloride 100.8 mmol/L (98-107) 09/30/19 Unknown Carbon Dioxide 22 mmol/L (22-30) 09/30/19 Unknown Anion Gap 18 mmol/L 09/30/19 Unknown BUN 9 mg/dL (7-17) 09/30/19 Unknown Creatinine 1.0 mg/dL (0.7-1.2) 09/30/19 Unknown Estimated GFR > 60 ml/min 09/30/19 Unknown BUN/Creatinine Ratio 9 % 09/30/19 Unknown Glucose 100 mg/dL (65-100) 09/30/19 Unknown Hemoglobin A1c 5.9 % (4-6) 09/30/19 Unknown Lactic Acid 0.90 mmol/L (0.7-2.0) 09/29/19 20:37 Calcium 8.4 mg/dL (8.4-10.2) 09/30/19 Unknown Total Bilirubin 0.30 mg/dL (0.1-1.2) 09/30/19 Unknown AST 23 units/L (5-40) 09/30/19 Unknown ALT 9 units/L (7-56) 09/30/19 Unknown Alkaline Phosphatase 50 units/L (35-129) 09/30/19 Unknown Total Protein 6.6 g/dL (6.3-8.2) 09/30/19 Unknown Albumin 3.5 g/dL (3.9-5) L 09/30/19 Unknown Albumin/Globulin Ratio 1.1 % 09/30/19 Unknown Influenza A (Rapid) Negative (Negative) 09/29/19 21:29 Influenza B (Rapid) Negative (Negative) 09/29/19 21:29 Dickey/IV: Voiding Method Toilet IV Catheter Type [Right INT / Saline Lock Forearm] Active Medications - Current Medications Current Medications: Generic Name Dose Route Start Last Admin Trade Name Freq PRN Reason Stop Dose Admin Acetaminophen 650 mg 09/29/19 22:01 09/30/19 13:01 Tylenol PO 650 mg Q4H PRN Administration Pain MILD(1-3)/Fever >100.5/FLORES Albuterol 2.5 mg 09/30/19 08:00 09/30/19 20:42 Proventil IH 2.5 mg TIDRT BELKIS Administration Albuterol 2.5 mg 09/30/19 00:56 10/01/19 01:40 Proventil IH 2.5 mg Q4HRT PRN Administration Shortness Of Breath Aspirin 81 mg 09/30/19 10:00 09/30/19 10:51 Halfprin Ec PO 81 mg DAILY BELKIS Administration Azithromycin 500 mg 09/30/19 12:00 09/30/19 12:50 Zithromax PO 10/03/19 10:01 500 mg QDAY BELKIS Administration Cholecalciferol 2,000 unit 09/30/19 10:00 09/30/19 10:52 Vitamin D3 PO 2,000 unit QDAY BELKIS Administration Hydromorphone HCl 0.5 mg 09/29/19 22:01 Dilaudid IV Q3H PRN Pain , Severe (7-10) Ceftriaxone Sodium 2 gm in 100 mls @ 200 mls/hr 09/29/19 18:00 09/30/19 10:57 Rocephin/Ns 2 Gm/100 Ml IV 200 mls/hr Q24HR BELKIS Administration Protocol Sodium Chloride 1,000 mls @ 42 mls/hr 09/29/19 22:15 10/01/19 05:56 Nacl 0.9% 1000 Ml IV 42 mls/hr DIRECT BELKIS Administration Methylprednisolone 4 mg 09/30/19 10:00 09/30/19 10:54 Medrol PO 4 mg DAILY BELKIS Administration Metoclopramide HCl 10 mg 09/29/19 22:01 Reglan IV Q6H PRN Nausea And Vomiting Metoprolol Tartrate 12.5 mg 09/29/19 22:00 09/30/19 22:37 Metoprolol PO Not Given BID [facility] Montelukast Sodium 10 mg 09/30/19 18:00 09/30/19 18:59 Singulair PO 10 mg QPM BELKIS Administration Ondansetron HCl 4 mg 09/29/19 22:01 Zofran IV Q8H PRN Nausea And Vomiting Oxycodone/Acetaminophen 1 tab 09/29/19 22:01 10/01/19 01:29 Percocet 5/325 PO 1 tab Q6H PRN Administration Pain, Moderate (4-6) Pravastatin Sodium 20 mg 09/29/19 22:00 09/30/19 22:37 Pravachol PO 20 mg QHS BELKIS Administration Ranolazine 500 mg 09/29/19 22:00 09/30/19 22:37 Ranexa Er PO 500 mg BID BELKIS Administration Sodium Chloride 10 ml 09/30/19 10:00 09/30/19 22:37 Sodium Chloride Flush Syringe 10 Ml IV 10 ml BID BELKIS Administration Sodium Chloride 10 ml 09/29/19 22:01 Sodium Chloride Flush Syringe 10 Ml IV PRN PRN LINE FLUSH
[2019-10-01] MEDS: ASPIRIN EC 81 MG TAB PO SCH (10:30)
[2019-10-01] MEDS: CHOLECALCIFEROL (VIT D3) 1000 UNIT (25 mcg) TAB PO SCH (10:34)
[2019-10-01] MEDS: RANOLAZINE ER 500 MG TAB 12HR PO SCH (10:35)
[2019-10-01] MEDS: methylPREDNISolone 4 MG TAB PO SCH (10:35)
[2019-10-01] MEDS: cefTRIAXone/NS 2 GM/100 ML 2 GM/100 ML BAG IV SCH (10:36)
[2019-10-01] MEDS: AZITHROMYCIN 250 MG TAB PO SCH (10:36)
[2019-10-01] MEDS: ALBUTEROL 2.5 MG/3 ML NEBU IH SCH ×3 (11:55→20:40)
[2019-10-01] MEDS: METOPROLOL TARTRATE 25 MG TAB PO SCH ×2 (12:31→23:05)
--- NOTE | 2019-10-01 12:56 | Progress Note ---
Assessment and Plan Cultures: Blood culture 09/29/2019 no growth to date Urine culture 09/29/2019 no growth to date A/P: 54-year-old female past medical history hypertension, hyperlipidemia, asthma admitted to the hospital with flulike symptoms and concern for novel coronavirus infection. #COVID19 rule out: Paperwork filled out previously, appreciate assistance with this. We will follow-up results from [facility]. Continue droplet and contact precautions for now. She is fairly high risk given her frequent meeting of new people, and background of asthma. Monitor for decompensation. Has fevers and lymphopenia. #Pneumonia: Continue empiric antibiotics for now with ceftriaxone and azithromycin. No risk factors for resistant disease at this point. Monitor fevers. Recs: -Continue ceftriaxone azithromycin to complete 5 days for community-acquired pneumonia. -Follow-up COVID-[address] [facility]. -Procalcitonin normal, indicating likely viral etiology of pneumonia. -Follow-up cultures - Patient may be discharged when medically stable if testing swabs have been obtained. Upon discharge patient should self-quarantine at home until COVID testing returns. If negative, self-quarantine may end. If positive patient should self-quarantine for 14 days from symptom beginning. Public health and infection prevention will follow up with patients to notify them of their test results. Patients should return to hospital regardless if they have worsening fevers or respiratory status. Thank you for the consult, will continue to follow Lewis Kang MD [facility] ([facility] M: [phone] O: [phone] F: [phone] Subjective Date of service: 10/01/19 Interval history: Patient remains afebrile with a normal white count. She still complains of ongoing cough and generalized weakness. Objective - Exam Narrative Exam: Physical Exam: Constitutional: Alert, cooperative. No acute distress Head, Ears, Nose: Normocephalic, atraumatic. External ears, nose normal Neck: Supple, no meningeal signs Oral: dentition fair, no thrush Cardiovascular: S1, S2 normal. Respiratory: L crackles GI: Soft, non-tender; bowel sounds normal. No peritoneal signs. Musculoskeletal: No pedal edema, no cyanosis. Skin: No rash or abscess Hem/Lymphatic: No palpable cervical or supraclavicular nodes. No lymphangitis Psych: Mood ok. Affect normal Neurological: Awake, alert, oriented. No gross abnormality - Constitutional Vitals: Vital Signs Temp Pulse Resp BP Pulse Ox 99.8 F H 88 16 94/63 97 10/01/19 06:08 10/01/19 12:01 10/01/19 12:01 10/01/19 06:08 10/01/19 10:00 Temperature -Last 24 Hours Temperature 99.8 F Temperature 99.8 F Temperature 98.6 F Temperature 99.4 F Temperature 102.1 F - Labs CBC & Chem 7: 09/30/19 Unknown 09/30/19 Unknown
--- NOTE | 2019-10-01 17:10 | Event Note ---
Date: 10/01/19 I was called around 5pm the patient's paperwork was not filled. I call Dr Mariee and he gave me Umair Ross's number. I called Mr Ross [phone] id he can assist me to get the form. He didn't vegetable picker his phone. I called him at 5:00 pm.
[2019-10-01] MEDS: MONTELUKAST 10 MG TAB PO SCH (18:28)
[2019-10-01] MEDS: PRAVASTATIN 20 MG TAB PO SCH (23:06)
[2019-10-01] MEDS: ENOXAPARIN 40 MG/0.4 ML INJ SUB-Q SCH (23:06)
[2019-10-02] MEDS: RANOLAZINE ER 500 MG TAB 12HR PO SCH ×3 (00:01→22:37)
[2019-10-02] MEDS: ALBUTEROL 2.5 MG/3 ML NEBU IH SCH ×3 (09:09→20:54)
[2019-10-02] MEDS: cefTRIAXone/NS 2 GM/100 ML 2 GM/100 ML BAG IV SCH (10:08)
[2019-10-02] MEDS: CHOLECALCIFEROL (VIT D3) 1000 UNIT (25 mcg) TAB PO SCH (10:08)
[2019-10-02] MEDS: AZITHROMYCIN 250 MG TAB PO SCH (10:09)
[2019-10-02] MEDS: ASPIRIN EC 81 MG TAB PO SCH (10:09)
[2019-10-02] MEDS: METOPROLOL TARTRATE 25 MG TAB PO SCH ×2 (10:20→22:37)
[2019-10-02] MEDS: methylPREDNISolone 4 MG TAB PO SCH (12:46)
--- NOTE | 2019-10-02 12:54 | Progress Note ---
Assessment and Plan Assessment and plan: Sepsis secondary to pneumonia -Patient is being managed according to sepsis protocol, IV fluids, IV Rocephin and Zosyn -Follow blood cultures Patient is suspected for COVID-19 infection -ID was consulted -COVID-19 form was not filled properly and I filled the form this morning Respiratory distress -Patient is on 40% Ventimask Hypertension -Currently blood pressure is on the low side of normal DVT prophylaxis -On Lovenox Disposition -Per clinical course Patient is still complaining generalized weakness and continued cough. Patient will be discharged once medically stable. History Interval history: Patient was seen and evaluated this morning, patient was admitted for pneumonia, suspected COVID-19 Patient still has shortness of breath and she is on 40% Ventimask. Hospitalist Physical - Physical exam Narrative exam: Not in cardiopulmonary distress. The patient appeared well nourished and normally developed. Vital signs as documented. Head exam is unremarkable. No scleral icterus . Neck is without jugular venous distension, thyromegaly, or carotid bruits. Lungs are clear to auscultation. Cardiac exam reveals regular rate and Rhythm. Abdominal exam reveals normal bowel sounds, nontender, no organomegaly. Extremities are nonedematous and both femoral and pedal pulses are normal. TOY DESIGNER: Alert and oriented 3. No focal weakness. - Constitutional Vitals: Temp Pulse Resp BP Pulse Ox 97.9 F 77 22 139/81 95 10/02/19 06:02 10/02/19 10:20 10/02/19 09:27 10/02/19 10:20 10/02/19 09:28 General appearance: Present: no acute distress, well-nourished Results - Labs CBC & Chem 7: 09/30/19 Unknown 09/30/19 Unknown Labs: Laboratory Last Values WBC 4.9 K/mm3 (4.5-11.0) 09/30/19 Unknown RBC 4.03 M/mm3 (3.65-5.03) 09/30/19 Unknown Hgb 11.9 gm/dl (10.1-14.3) 09/30/19 Unknown Hct 35.4 % (30.3-42.9) D 09/30/19 Unknown MCV 88 fl (79-97) 09/30/19 Unknown MCH 30 pg (28-32) 09/30/19 Unknown MCHC 34 % (30-34) 09/30/19 Unknown RDW 14.3 % (13.2-15.2) 09/30/19 Unknown Plt Count 243 K/mm3 (140-440) 09/30/19 Unknown Lymph % (Auto) 15.1 % (13.4-35.0) 09/30/19 Unknown [place] % (Auto) 4.2 % (0.0-7.3) 09/30/19 Unknown Eos % (Auto) 0.0 % (0.0-4.3) 09/30/19 Unknown Baso % (Auto) 0.3 % (0.0-1.8) 09/30/19 Unknown Lymph # 0.7 K/mm3 (1.2-5.4) L 09/30/19 Unknown [place] # 0.2 K/mm3 (0.0-0.8) 09/30/19 Unknown Eos # 0.0 K/mm3 (0.0-0.4) 09/30/19 Unknown Baso # 0.0 K/mm3 (0.0-0.1) 09/30/19 Unknown Add Manual Diff Complete 09/29/19 16:27 Total Counted 100 09/29/19 16:27 Seg Neutrophils % 80.4 % (40.0-70.0) H 09/30/19 Unknown Seg Neuts % (Manual) 87.0 % (40.0-70.0) H 09/29/19 16:27 Band Neutrophils % 0 % 09/29/19 16:27 Lymphocytes % (Manual) 12.0 % (13.4-35.0) L 09/29/19 16:27 Reactive Lymphs % (Man) 0 % 09/29/19 16:27 Monocytes % (Manual) 0 % (0.0-7.3) 09/29/19 16:27 Eosinophils % (Manual) 1.0 % (0.0-4.3) 09/29/19 16:27 Basophils % (Manual) 0 % (0.0-1.8) 09/29/19 16:27 Metamyelocytes % 0 % 09/29/19 16:27 Myelocytes % 0 % 09/29/19 16:27 Promyelocytes % 0 % 09/29/19 16:27 Blast Cells % 0 % 09/29/19 16:27 Nucleated RBC % Not Reportable 09/29/19 16:27 Seg Neutrophils # 3.9 K/mm3 (1.8-7.7) 09/30/19 Unknown Seg Neutrophils # Man 6.8 K/mm3 (1.8-7.7) 09/29/19 16:27 Band Neutrophils # 0.0 K/mm3 09/29/19 16:27 Lymphocytes # (Manual) 0.9 K/mm3 (1.2-5.4) L 09/29/19 16:27 Abs React Lymphs (Man) 0.0 K/mm3 09/29/19 16:27 Monocytes # (Manual) 0.0 K/mm3 (0.0-0.8) 09/29/19 16:27 Eosinophils # (Manual) 0.1 K/mm3 (0.0-0.4) 09/29/19 16:27 Basophils # (Manual) 0.0 K/mm3 (0.0-0.1) 09/29/19 16:27 Metamyelocytes # 0.0 K/mm3 09/29/19 16:27 Myelocytes # 0.0 K/mm3 09/29/19 16:27 Promyelocytes # 0.0 K/mm3 09/29/19 16:27 Blast Cells # 0.0 K/mm3 09/29/19 16:27 WBC Morphology Not Reportable 09/29/19 16:27 Hypersegmented Neuts Not Reportable 09/29/19 16:27 Hyposegmented Neuts Not Reportable 09/29/19 16:27 Hypogranular Neuts Not Reportable 09/29/19 16:27 Smudge Cells Not Reportable 09/29/19 16:27 Toxic Granulation Not Reportable 09/29/19 16:27 Toxic Vacuolation Not Reportable 09/29/19 16:27 Dohle Bodies Not Reportable 09/29/19 16:27 Pelger-Huet Anomaly Not Reportable 09/29/19 16:27 Nancy Rods Not Reportable 09/29/19 16:27 Platelet Estimate Consistent w auto 09/29/19 16:27 Clumped Platelets Not Reportable 09/29/19 16:27 Plt Clumps, EDTA Not Reportable 09/29/19 16:27 Large Platelets Not Reportable 09/29/19 16:27 Giant Platelets Not Reportable 09/29/19 16:27 Platelet Satelliting Not Reportable 09/29/19 16:27 Plt Morphology Comment Not Reportable 09/29/19 16:27 RBC Morphology Normal 09/29/19 16:27 Dimorphic RBCs Not Reportable 09/29/19 16:27 Polychromasia Not Reportable 09/29/19 16:27 Hypochromasia Not Reportable 09/29/19 16:27 Poikilocytosis Not Reportable 09/29/19 16:27 Anisocytosis Not Reportable 09/29/19 16:27 Microcytosis Not Reportable 09/29/19 16:27 Macrocytosis Not Reportable 09/29/19 16:27 Spherocytes Not Reportable 09/29/19 16:27 Pappenheimer Bodies Not Reportable 09/29/19 16:27 Sickle Cells Not Reportable 09/29/19 16:27 Target Cells Not Reportable 09/29/19 16:27 Tear Drop Cells Not Reportable 09/29/19 16:27 Ovalocytes Not Reportable 09/29/19 16:27 Helmet Cells Not Reportable 09/29/19 16:27 Constantino-Rockwell Bodies Not Reportable 09/29/19 16:27 [place] Rings Not Reportable 09/29/19 16:27 Enzo Cells Not Reportable 09/29/19 16:27 Bite Cells Not Reportable 09/29/19 16:27 Crenated Cell Not Reportable 09/29/19 16:27 Elliptocytes Not Reportable 09/29/19 16:27 Acanthocytes (Spur) Not Reportable 09/29/19 16:27 Rouleaux Not Reportable 09/29/19 16:27 Hemoglobin C Crystals Not Reportable 09/29/19 16:27 Schistocytes Not Reportable 09/29/19 16:27 Malaria parasites Not Reportable 09/29/19 16:27 Suman Bodies Not Reportable 09/29/19 16:27 Hem Pathologist Commnt No 09/29/19 16:27 PT 13.2 Sec. (12.2-14.9) 09/29/19 16:27 INR 0.99 (0.87-1.13) 09/29/19 16:27 VBG pH 7.442 (7.320-7.420) H 09/29/19 16:27 Sodium 137 mmol/L (137-145) 09/30/19 Unknown Potassium 3.7 mmol/L (3.6-5.0) 09/30/19 Unknown Chloride 100.8 mmol/L (98-107) 09/30/19 Unknown Carbon Dioxide 22 mmol/L (22-30) 09/30/19 Unknown Anion Gap 18 mmol/L 09/30/19 Unknown BUN 9 mg/dL (7-17) 09/30/19 Unknown Creatinine 1.0 mg/dL (0.7-1.2) 09/30/19 Unknown Estimated GFR > 60 ml/min 09/30/19 Unknown BUN/Creatinine Ratio 9 % 09/30/19 Unknown Glucose 100 mg/dL (65-100) 09/30/19 Unknown Hemoglobin A1c 5.9 % (4-6) 09/30/19 Unknown Lactic Acid 0.90 mmol/L (0.7-2.0) 09/29/19 20:37 Calcium 8.4 mg/dL (8.4-10.2) 09/30/19 Unknown Total Bilirubin 0.30 mg/dL (0.1-1.2) 09/30/19 Unknown AST 23 units/L (5-40) 09/30/19 Unknown ALT 9 units/L (7-56) 09/30/19 Unknown Alkaline Phosphatase 50 units/L (35-129) 09/30/19 Unknown Total Protein 6.6 g/dL (6.3-8.2) 09/30/19 Unknown Albumin 3.5 g/dL (3.9-5) L 09/30/19 Unknown Albumin/Globulin Ratio 1.1 % 09/30/19 Unknown Procalcitonin < 0.05 ng/mL (<0.15) 10/01/19 05:40 Influenza A (Rapid) Negative (Negative) 09/29/19 21:29 Influenza B (Rapid) Negative (Negative) 09/29/19 21:29 Microbiology: Microbiology 09/29/19 16:27 Peripheral/Venous Blood Culture - Preliminary NO GROWTH AFTER 48 HOURS 09/29/19 16:27 Peripheral/Venous Blood Culture - Preliminary NO GROWTH AFTER 48 HOURS 09/29/19 Unknown Urine,Clean Catch Urine Culture - Final Dickey/IV: Voiding Method Toilet IV Catheter Type [Right INT / Saline Lock Forearm] Active Medications - Current Medications Current Medications: Generic Name Dose Route Start Last Admin Trade Name Freq PRN Reason Stop Dose Admin Acetaminophen 650 mg 09/29/19 22:01 09/30/19 13:01 Tylenol PO 650 mg Q4H PRN Administration Pain MILD(1-3)/Fever >100.5/FLORES Albuterol 2.5 mg 09/30/19 08:00 10/02/19 09:09 Proventil IH 2.5 mg TIDRT BELKIS Administration Albuterol 2.5 mg 09/30/19 00:56 10/01/19 01:40 Proventil IH 2.5 mg Q4HRT PRN Administration Shortness Of Breath Aspirin 81 mg 09/30/19 10:00 10/02/19 10:09 Halfprin Ec PO 81 mg DAILY BELKIS Administration Azithromycin 500 mg 09/30/19 12:00 10/02/19 10:09 Zithromax PO 10/03/19 10:01 500 mg QDAY BELKIS Administration Cholecalciferol 2,000 unit 09/30/19 10:00 10/02/19 10:08 Vitamin D3 PO 2,000 unit QDAY BELKIS Administration Enoxaparin Sodium 40 mg 10/01/19 22:00 10/01/19 23:06 Enoxaparin SUB-Q 40 mg QDAY@2200 BELKIS Administration Hydromorphone HCl 0.5 mg 09/29/19 22:01 Dilaudid IV Q3H PRN Pain , Severe (7-10) Ceftriaxone Sodium 2 gm in 100 mls @ 200 mls/hr 09/29/19 18:00 10/02/19 10:08 Rocephin/Ns 2 Gm/100 Ml IV 10/03/19 10:29 200 mls/hr Q24HR BELKIS Administration Protocol Sodium Chloride 1,000 mls @ 42 mls/hr 09/29/19 22:15 10/01/19 20:05 Nacl 0.9% 1000 Ml IV 42 mls/hr DIRECT BELKIS Administration Methylprednisolone 4 mg 09/30/19 10:00 10/02/19 12:46 Medrol PO 4 mg DAILY BELKIS Administration Metoclopramide HCl 10 mg 09/29/19 22:01 Reglan IV Q6H PRN Nausea And Vomiting Metoprolol Tartrate 12.5 mg 09/29/19 22:00 10/02/19 10:20 Metoprolol PO 12.5 mg BID BELKIS Administration Montelukast Sodium 10 mg 09/30/19 18:00 10/01/19 18:28 Singulair PO 10 mg QPM BELKIS Administration Ondansetron HCl 4 mg 09/29/19 22:01 Zofran IV Q8H PRN Nausea And Vomiting Oxycodone/Acetaminophen 1 tab 09/29/19 22:01 10/01/19 08:26 Percocet 5/325 PO 1 tab Q6H PRN Administration Pain, Moderate (4-6) Pravastatin Sodium 20 mg 09/29/19 22:00 10/01/19 23:06 Pravachol PO 20 mg QHS BELKIS Administration Ranolazine 500 mg 09/29/19 22:00 10/02/19 00:01 Ranexa Er PO 500 mg BID BELKIS Administration Sodium Chloride 10 ml 09/30/19 10:00 10/02/19 10:10 Sodium Chloride Flush Syringe 10 Ml IV 10 ml BID BELKIS Administration Sodium Chloride 10 ml 09/29/19 22:01 Sodium Chloride Flush Syringe 10 Ml IV PRN PRN LINE FLUSH
--- NOTE | 2019-10-02 15:57 | Progress Note ---
Assessment and Plan Cultures: Blood culture 09/29/2019 no growth to date Urine culture 09/29/2019 no growth to date A/P: 54-year-old female past medical history hypertension, hyperlipidemia, asthma admitted to the hospital with flulike symptoms and concern for novel coronavirus infection. #COVID19 rule out: Paperwork filled out previously, appreciate assistance with this. We will follow-up results from [facility]. Continue droplet and contact precautions for now. She is fairly high risk given her frequent meeting of new people, and background of asthma. Monitor for decompensation. Has fevers and lymphopenia. #Pneumonia: Continue empiric antibiotics for now with ceftriaxone and azithromycin. No risk factors for resistant disease at this point. Monitor fevers. Recs: -Continue ceftriaxone azithromycin to complete 5 days for community-acquired pneumonia. -Follow-up COVID-19 testing from [facility]. -Procalcitonin normal, indicating likely viral etiology of pneumonia. -Follow-up cultures - Patient may be discharged when medically stable if testing swabs have been obtained. Upon discharge patient should self-quarantine at home until COVID testing returns. If negative, self-quarantine may end. If positive patient should self-quarantine for 14 days from symptom beginning. Public health and infection prevention will follow up with patients to notify them of their test results. Patients should return to hospital regardless if they have worsening fevers or respiratory status. Thank you for the consult, will continue to follow Lewis Kang MD [facility] ([facility]) M: [phone] O: [phone] F: [phone] Subjective Date of service: 10/02/19 Interval history: Afebrile, normal white count. No new concerns. Attempted to be discharged yesterday, however COVID-19 testing paperwork had not been filled out previously. Objective - Exam Narrative Exam: Physical Exam: Constitutional: Alert, cooperative. No acute distress Neck: Supple, no meningeal signs Oral: dentition fair, no thrush Cardiovascular: S1, S2 normal. Respiratory: L crackles GI: Soft, non-tender; bowel sounds normal. No peritoneal signs. Musculoskeletal: No pedal edema, no cyanosis. Skin: No rash or abscess Hem/Lymphatic: No palpable cervical or supraclavicular nodes. No lymphangitis Psych: Mood ok. Affect normal Neurological: Awake, alert, oriented. No gross abnormality - Constitutional Vitals: Vital Signs Temp Pulse Resp BP Pulse Ox 98.5 F 74 24 112/72 97 10/02/19 12:45 10/02/19 12:45 10/02/19 12:45 10/02/19 12:45 10/02/19 12:45 Temperature -Last 24 Hours Temperature 98.5 F Temperature 97.9 F Temperature 99.9 F Temperature 99.4 F - Labs CBC & Chem 7: 09/30/19 Unknown 09/30/19 Unknown
[2019-10-02] MEDS: MONTELUKAST 10 MG TAB PO SCH (17:43)
[2019-10-02] MEDS: ENOXAPARIN 40 MG/0.4 ML INJ SUB-Q SCH (22:35)
[2019-10-02] MEDS: PRAVASTATIN 20 MG TAB PO SCH (22:36)
[2019-10-03] MEDS: ALBUTEROL 2.5 MG/3 ML NEBU IH SCH ×3 (08:14→21:50)
[2019-10-03] MEDS: CHOLECALCIFEROL (VIT D3) 1000 UNIT (25 mcg) TAB PO SCH (09:48)
[2019-10-03] MEDS: METOPROLOL TARTRATE 25 MG TAB PO SCH ×2 (09:48→21:12)
[2019-10-03] MEDS: AZITHROMYCIN 250 MG TAB PO SCH (09:48)
[2019-10-03] MEDS: ASPIRIN EC 81 MG TAB PO SCH (09:48)
[2019-10-03] MEDS: methylPREDNISolone 4 MG TAB PO SCH (09:48)
[2019-10-03] MEDS: cefTRIAXone/NS 2 GM/100 ML 2 GM/100 ML BAG IV SCH (09:49)
[2019-10-03] MEDS: RANOLAZINE ER 500 MG TAB 12HR PO SCH ×2 (09:49→21:11)
[2019-10-03] MEDS: SODIUM CHLORIDE 0.9% 1000 ML 1,000 ML IV SCH (09:50)
--- NOTE | 2019-10-03 11:30 | Progress Note ---
Assessment and Plan Assessment and plan: COVID19 rule out: Paperwork filled out previously, appreciate assistance with this. We will follow-up results from [facility]. Continue droplet and contact precautions for now. She is fairly high risk given her frequent meeting of new people, and background of asthma. Monitor for decompensation. Has fevers and lymphopenia. Sepsis. Etiology secondary to pneumonia. Continue sepsis protocol and IV antibiotics per infectious disease consultation. Follow-up blood cultures pneumonia: Continue empiric antibiotics for now with ceftriaxone and azithromycin. No risk factors for resistant disease at this point. Monitor fevers. Hypertension. Continue antihypertensive medications DVT prophylaxis. Continue Lovenox. Disposition. Patient may be discharged when medically stable if testing swabs have been obtained. Upon discharge patient should self-quarantine at home until COVID testing returns. If negative, self-quarantine may end. If positive patient should self-quarantine for 14 days from symptom beginning. [facility] and infection prevention will follow up with patients to notify them of their test results. Patients should return to hospital regardless if they have worsening fevers or respiratory status. History Interval history: 54-year-old female past medical history hypertension, hyperlipidemia, asthma admitted to the hospital with flulike symptoms and concern for novel coronavirus infection. Hospitalist Physical - Constitutional Vitals: Temp Pulse Resp BP Pulse Ox 98.6 F 85 20 115/79 94 10/03/19 06:24 10/03/19 08:16 10/03/19 08:16 10/02/19 22:37 10/03/19 08:17 General appearance: Present: no acute distress, well-nourished - EENT Eyes: Present: PERRL, EOM intact ENT: hearing intact, clear oral mucosa, dentition normal - Neck Neck: Present: supple, normal ROM - Respiratory Respiratory effort: normal Respiratory: bilateral: CTA - Cardiovascular Rhythm: regular Heart Sounds: Present: S1 & S2. Absent: gallop, rub - Extremities Extremities: no ischemia, No edema, Full ROM - Abdominal General gastrointestinal: soft, non-tender, non-distended, normal bowel sounds - Integumentary Integumentary: Present: clear, warm, dry - Neurologic Neurologic: CNII-XII intact, moves all extremities Results - Labs CBC & Chem 7: 09/30/19 Unknown 09/30/19 Unknown Labs: Laboratory Last Values WBC 4.9 K/mm3 (4.5-11.0) 09/30/19 Unknown RBC 4.03 M/mm3 (3.65-5.03) 09/30/19 Unknown Hgb 11.9 gm/dl (10.1-14.3) 09/30/19 Unknown Hct 35.4 % (30.3-42.9) D 09/30/19 Unknown MCV 88 fl (79-97) 09/30/19 Unknown MCH 30 pg (28-32) 09/30/19 Unknown MCHC 34 % (30-34) 09/30/19 Unknown RDW 14.3 % (13.2-15.2) 09/30/19 Unknown Plt Count 243 K/mm3 (140-440) 09/30/19 Unknown Lymph % (Auto) 15.1 % (13.4-35.0) 09/30/19 Unknown Mercer % (Auto) 4.2 % (0.0-7.3) 09/30/19 Unknown Eos % (Auto) 0.0 % (0.0-4.3) 09/30/19 Unknown Baso % (Auto) 0.3 % (0.0-1.8) 09/30/19 Unknown Lymph # 0.7 K/mm3 (1.2-5.4) L 09/30/19 Unknown Mercer # 0.2 K/mm3 (0.0-0.8) 09/30/19 Unknown Eos # 0.0 K/mm3 (0.0-0.4) 09/30/19 Unknown Baso # 0.0 K/mm3 (0.0-0.1) 09/30/19 Unknown Add Manual Diff Complete 09/29/19 16:27 Total Counted 100 09/29/19 16:27 Seg Neutrophils % 80.4 % (40.0-70.0) H 09/30/19 Unknown Seg Neuts % (Manual) 87.0 % (40.0-70.0) H 09/29/19 16:27 Band Neutrophils % 0 % 09/29/19 16:27 Lymphocytes % (Manual) 12.0 % (13.4-35.0) L 09/29/19 16:27 Reactive Lymphs % (Man) 0 % 09/29/19 16:27 Monocytes % (Manual) 0 % (0.0-7.3) 09/29/19 16:27 Eosinophils % (Manual) 1.0 % (0.0-4.3) 09/29/19 16:27 Basophils % (Manual) 0 % (0.0-1.8) 09/29/19 16:27 Metamyelocytes % 0 % 09/29/19 16:27 Myelocytes % 0 % 09/29/19 16:27 Promyelocytes % 0 % 09/29/19 16:27 Blast Cells % 0 % 09/29/19 16:27 Nucleated RBC % Not Reportable 09/29/19 16: Seg Neutrophils # 3.9 K/mm3 (1.8-7.7) 09/30/19 Unknown Seg Neutrophils # Man 6.8 K/mm3 (1.8-7.7) 09/29/19 16: Band Neutrophils # 0.0 K/mm3 09/29/19 16:27 Lymphocytes # (Manual) 0.9 K/mm3 (1.2-5.4) L 09/29/19 16:27 Abs React Lymphs (Man) 0.0 K/mm3 09/29/19 16: Monocytes # (Manual) 0.0 K/mm3 (0.0-0.8) 09/29/19 16:27 Eosinophils # (Manual) 0.1 K/mm3 (0.0-0.4) 09/29/19 16:27 Basophils # (Manual) 0.0 K/mm3 (0.0-0.1) 09/29/19 16: Metamyelocytes # 0.0 K/mm3 09/29/19 16: Myelocytes # 0.0 K/mm3 09/29/19 16:27 Promyelocytes # 0.0 K/mm3 09/29/19 16:27 Blast Cells # 0.0 K/mm3 09/29/19 16:27 WBC Morphology Not Reportable 09/29/19 16:27 Hypersegmented Neuts Not Reportable 09/29/19 16:27 Hyposegmented Neuts Not Reportable 09/29/19 16:27 Hypogranular Neuts Not Reportable 09/29/19 16:27 Smudge Cells Not Reportable 09/29/19 16:27 Toxic Granulation Not Reportable 09/29/19 16:27 Toxic Vacuolation Not Reportable 09/29/19 16:27 Dohle Bodies Not Reportable 09/29/19 16:27 Pelger-Huet Anomaly Not Reportable 09/29/19 16:27 Nancy Rods Not Reportable 09/29/19 16:27 Platelet Estimate Consistent w auto 09/29/19 16:27 Clumped Platelets Not Reportable 09/29/19 16:27 Plt Clumps, EDTA Not Reportable 09/29/19 16:27 Large Platelets Not Reportable 09/29/19 16:27 Giant Platelets Not Reportable 09/29/19 16:27 Platelet Satelliting Not Reportable 09/29/19 16:27 Plt Morphology Comment Not Reportable 09/29/19 16:27 RBC Morphology Normal 09/29/19 16:27 Dimorphic RBCs Not Reportable 09/29/19 16:27 Polychromasia Not Reportable 09/29/19 16:27 Hypochromasia Not Reportable 09/29/19 16:27 Poikilocytosis Not Reportable 09/29/19 16:27 Anisocytosis Not Reportable 09/29/19 16:27 Microcytosis Not Reportable 09/29/19 16:27 Macrocytosis Not Reportable 09/29/19 16:27 Spherocytes Not Reportable 09/29/19 16:27 Pappenheimer Bodies Not Reportable 09/29/19 16:27 Sickle Cells Not Reportable 09/29/19 16:27 Target Cells Not Reportable 09/29/19 16:27 Tear Drop Cells Not Reportable 09/29/19 16:27 Ovalocytes Not Reportable 09/29/19 16:27 Helmet Cells Not Reportable 09/29/19 16:27 [place] Bodies Not Reportable 09/29/19 16:27 Dorrance Rings Not Reportable 09/29/19 16:27 Mcrae Cells Not Reportable 09/29/19 16:27 Bite Cells Not Reportable 09/29/19 16:27 Crenated Cell Not Reportable 09/29/19 16:27 Elliptocytes Not Reportable 09/29/19 16:27 Acanthocytes (Spur) Not Reportable 09/29/19 16:27 Rouleaux Not Reportable 09/29/19 16:27 Hemoglobin C Crystals Not Reportable 09/29/19 16:27 Schistocytes Not Reportable 03/15/20 16:27 Malaria parasites Not Reportable 09/29/19 16:27 Suman Bodies Not Reportable 09/29/19 16:27 Hem Pathologist Commnt No 09/29/19 16:27 PT 13.2 Sec. (12.2-14.9) 09/29/19 16:27 INR 0.99 (0.87-1.13) 09/29/19 16:27 VBG pH 7.442 (7.320-7.420) H 09/29/19 16:27 Sodium 137 mmol/L (137-145) 09/30/19 Unknown Potassium 3.7 mmol/L (3.6-5.0) 09/30/19 Unknown Chloride 100.8 mmol/L (98-107) 09/30/19 Unknown Carbon Dioxide 22 mmol/L (22-30) 09/30/19 Unknown Anion Gap 18 mmol/L 09/30/19 Unknown BUN 9 mg/dL (7-17) 09/30/19 Unknown Creatinine 1.0 mg/dL (0.7-1.2) 09/30/19 Unknown Estimated GFR > 60 ml/min 09/30/19 Unknown BUN/Creatinine Ratio 9 % 09/30/19 Unknown Glucose 100 mg/dL (65-100) 09/30/19 Unknown Hemoglobin A1c 5.9 % (4-6) 09/30/19 Unknown Lactic Acid 0.90 mmol/L (0.7-2.0) 09/29/19 20:37 Calcium 8.4 mg/dL (8.4-10.2) 09/30/19 Unknown Total Bilirubin 0.30 mg/dL (0.1-1.2) 09/30/19 Unknown AST 23 units/L (5-40) 09/30/19 Unknown ALT 9 units/L (7-56) 09/30/19 Unknown Alkaline Phosphatase 50 units/L (35-129) 09/30/19 Unknown Total Protein 6.6 g/dL (6.3-8.2) 09/30/19 Unknown Albumin 3.5 g/dL (3.9-5) L 09/30/19 Unknown Albumin/Globulin Ratio 1.1 % 09/30/19 Unknown Procalcitonin < 0.05 ng/mL (<0.15) 10/01/19 05:40 Influenza A (Rapid) Negative (Negative) 09/29/19 21:29 Influenza B (Rapid) Negative (Negative) 09/29/19 21:29 Microbiology: Microbiology 09/29/19 16:27 Peripheral/Venous Blood Culture - Preliminary NO GROWTH AFTER 72 HOURS 09/29/19 16:27 Peripheral/Venous Blood Culture - Preliminary NO GROWTH AFTER 72 HOURS Dickey/IV: Voiding Method Toilet IV Catheter Type [Right Hand] Peripheral IV IV Catheter Type [Right Peripheral IV Forearm] Active Medications - Current Medications Current Medications: Generic Name Dose Route Start Last Admin Trade Name Freq PRN Reason Stop Dose Admin Acetaminophen 650 mg 09/29/19 22:01 09/30/19 13:01 Tylenol PO 650 mg Q4H PRN Administration Pain MILD(1-3)/Fever >100.5/FLORES Albuterol 2.5 mg 09/30/19 08:00 10/03/19 08:14 Proventil IH 2.5 mg TIDRT BELKIS Administration Albuterol 2.5 mg 09/30/19 00:56 10/01/19 01:40 Proventil IH 2.5 mg Q4HRT PRN Administration Shortness Of Breath Aspirin 81 mg 09/30/19 10:00 10/03/19 09:48 Halfprin Ec PO 81 mg DAILY BELKIS Administration Cholecalciferol 2,000 unit 09/30/19 10:00 10/03/19 09:48 Vitamin D3 PO 2,000 unit QDAY BELKIS Administration Enoxaparin Sodium 40 mg 10/01/19 22:00 10/02/19 22:35 Enoxaparin SUB-Q 40 mg QDAY@2200 BELKIS Administration Guaifenesin 200 mg 10/03/19 10:00 Robitussin PO Q4HR PRN Cough Hydromorphone HCl 0.5 mg 09/29/19 22:01 Dilaudid IV Q3H PRN Pain , Severe (7-10) Sodium Chloride 1,000 mls @ 42 mls/hr 09/29/19 22:15 10/03/19 09:50 Nacl 0.9% 1000 Ml IV 42 mls/hr DIRECT BELKIS Administration Methylprednisolone 4 mg 09/30/19 10:00 10/03/19 09:48 Medrol PO 4 mg DAILY BELKIS Administration Metoclopramide HCl 10 mg 09/29/19 22:01 Reglan IV Q6H PRN Nausea And Vomiting Metoprolol Tartrate 12.5 mg 09/29/19 22:00 10/03/19 09:48 Metoprolol PO 12.5 mg BID BELKIS Administration Montelukast Sodium 10 mg 09/30/19 18:00 10/02/19 17:43 Singulair PO 10 mg QPM BELKIS Administration Ondansetron HCl 4 mg 09/29/19 22:01 Zofran IV Q8H PRN Nausea And Vomiting Oxycodone/Acetaminophen 1 tab 09/29/19 22:01 10/01/19 08:26 Percocet 5/325 PO 1 tab Q6H PRN Administration Pain, Moderate (4-6) Pravastatin Sodium 20 mg 09/29/19 22:00 10/02/19 22:36 Pravachol PO 20 mg QHS BELKIS Administration Ranolazine 500 mg 09/29/19 22:00 10/03/19 09:49 Ranexa Er PO 500 mg BID BELKIS Administration Sodium Chloride 10 ml 09/30/19 10:00 10/03/19 09:49 Sodium Chloride Flush Syringe 10 Ml IV 10 ml BID BELKIS Administration Sodium Chloride 10 ml 09/29/19 22:01 Sodium Chloride Flush Syringe 10 Ml IV PRN PRN LINE FLUSH
--- NOTE | 2019-10-03 14:07 | Progress Note ---
Assessment and Plan Cultures: Blood culture 09/29/2019 no growth to date Urine culture 09/29/2019 no growth to date A/P: 54-year-old female past medical history hypertension, hyperlipidemia, asthma admitted to the hospital with flulike symptoms and concern for novel coronavirus infection. #COVID19 rule out: Paperwork filled out previously, appreciate assistance with this. We will follow-up results from [facility]. Continue droplet and contact precautions for now. She is fairly high risk given her frequent meeting of new people, and background of asthma. Monitor for decompensation. Has fevers and lymphopenia. #Pneumonia: Continue empiric antibiotics for now with ceftriaxone and azithromycin. No risk factors for resistant disease at this point. Monitor fevers. Recs: -Completed antibiotics, continue off for now. -Follow-up COVID-[address] [facility]. -Procalcitonin normal, indicating likely viral etiology of pneumonia. - Patient may be discharged when medically stable if testing swabs have been obtained. Upon discharge patient should self-quarantine at home until COVID testing returns. If negative, self-quarantine may end. If positive patient should self-quarantine for 14 days from symptom beginning. Public health and infection prevention will follow up with patients to notify them of their test results. Patients should return to hospital regardless if they have worsening fevers or respiratory status. Thank you for the consult, will continue to follow Lewis Kang MD [facility] ([facility]) M: [phone] O: [phone] F: [phone] Subjective Date of service: 10/03/19 Interval history: Afebrile with normal white count. No acute change today. Objective - Exam Narrative Exam: Physical Exam: Constitutional: Alert, cooperative. No acute distress Neck: Supple, no meningeal signs Cardiovascular: S1, S2 normal. Respiratory: L crackles GI: Soft, non-tender; bowel sounds normal. No peritoneal signs. Musculoskeletal: No pedal edema, no cyanosis. Skin: No rash or abscess Hem/Lymphatic: No palpable cervical or supraclavicular nodes. No lymphangitis Psych: Mood ok. Affect normal Neurological: Awake, alert, oriented. No gross abnormality - Constitutional Vitals: Vital Signs Temp Pulse Resp BP Pulse Ox 98.6 F 82 20 115/79 94 10/03/19 06:24 03/19/20 13:28 10/03/19 13:28 10/02/19 22:37 10/03/19 08:17 Temperature -Last 24 Hours Temperature 98.6 F Temperature 98.3 F - Labs CBC & Chem 7: 09/30/19 Unknown 09/30/19 Unknown
[2019-10-03] MEDS: guaiFENesin 100 MG/5 ML ORAL LIQD PO PRN (17:33)
[2019-10-03] MEDS: MONTELUKAST 10 MG TAB PO SCH (17:42)
[2019-10-03] MEDS: ENOXAPARIN 40 MG/0.4 ML INJ SUB-Q SCH (21:12)
[2019-10-03] MEDS: PRAVASTATIN 20 MG TAB PO SCH (21:12)
[2019-10-04] MEDS: ALBUTEROL 2.5 MG/3 ML NEBU IH SCH ×3 (09:31→20:17)
[2019-10-04] MEDS: ASPIRIN EC 81 MG TAB PO SCH (09:47)
[2019-10-04] MEDS: methylPREDNISolone 4 MG TAB PO SCH (09:47)
[2019-10-04] MEDS: RANOLAZINE ER 500 MG TAB 12HR PO SCH ×2 (09:47→21:49)
[2019-10-04] MEDS: CHOLECALCIFEROL (VIT D3) 1000 UNIT (25 mcg) TAB PO SCH (09:47)
[2019-10-04] MEDS: METOPROLOL TARTRATE 25 MG TAB PO SCH ×2 (09:48→21:49)
--- NOTE | 2019-10-04 10:54 | Progress Note ---
Assessment and Plan Assessment and plan: Suspected COVID19. Paperwork filled out previously, appreciate assistance with this. We will follow-up results from [facility]. Continue droplet and contact precautions for now. She is fairly high risk given her frequent meeting of new people, and background of asthma. Monitor for decompensation. Has fevers and lymphopenia. Sepsis. Etiology secondary to pneumonia. Continue sepsis protocol and IV antibiotics per infectious disease consultation. Follow-up blood cultures pneumonia: Continue empiric antibiotics for now with ceftriaxone and azithromycin. No risk factors for resistant disease at this point. Monitor fevers. Acute hypoxic respiratory failure. Etiology secondary to above. Hypertension. Continue antihypertensive medications DVT prophylaxis. Continue Lovenox. Disposition. Patient may be discharged when medically stable if testing swabs have been obtained. Upon discharge patient should self-quarantine at home until COVID testing returns. If negative, self-quarantine may end. If positive patient should self-quarantine for 14 days from symptom beginning. [facility] and infection prevention will follow up with patients to notify them of their test results. Patients should return to hospital regardless if they have worsening fevers or respiratory status. 10/04/2019patient still requiring large amounts of oxygen with FiO2 of 50% via Venturi mask. Follow-up ABG. Consult pulmonary for further evaluation. Antibiotics completed and follow off antibiotics for now. Procalcitonin normal, indicating viral etiology of pneumonia. History Interval history: 54-year-old female past medical history hypertension, hyperlipidemia, asthma admitted to the hospital with flu-like symptoms and concern for novel coronavirus infection. Hospitalist Physical - Constitutional Vitals: Temp Pulse Resp BP Pulse Ox 97.8 F 82 20 122/74 97 10/04/19 06:51 10/04/19 09:31 10/04/19 09:31 10/04/19 06:51 10/04/19 06:51 General appearance: Present: no acute distress, well-nourished - EENT Eyes: Present: PERRL, EOM intact ENT: hearing intact, clear oral mucosa, dentition normal - Neck Neck: Present: supple, normal ROM - Respiratory Respiratory effort: normal Respiratory: bilateral: CTA - Cardiovascular Rhythm: regular Heart Sounds: Present: S1 & S2. Absent: gallop, rub - Extremities Extremities: no ischemia, No edema, Full ROM - Abdominal General gastrointestinal: soft, non-tender, non-distended, normal bowel sounds - Integumentary Integumentary: Present: clear, warm, dry - Neurologic Neurologic: CNII-XII intact, moves all extremities Results - Labs CBC & Chem 7: 09/30/19 Unknown 09/30/19 Unknown Labs: Laboratory Last Values WBC 4.9 K/mm3 (4.5-11.0) 09/30/19 Unknown RBC 4.03 M/mm3 (3.65-5.03) 09/30/19 Unknown Hgb 11.9 gm/dl (10.1-14.3) 09/30/19 Unknown Hct 35.4 % (30.3-42.9) D 09/30/19 Unknown MCV 88 fl (79-97) 09/30/19 Unknown MCH 30 pg (28-32) 09/30/19 Unknown MCHC 34 % (30-34) 09/30/19 Unknown RDW 14.3 % (13.2-15.2) 09/30/19 Unknown Plt Count 243 K/mm3 (140-440) 09/30/19 Unknown Lymph % (Auto) 15.1 % (13.4-35.0) 09/30/19 Unknown [place] % (Auto) 4.2 % (0.0-7.3) 09/30/19 Unknown Eos % (Auto) 0.0 % (0.0-4.3) 09/30/19 Unknown Baso % (Auto) 0.3 % (0.0-1.8) 09/30/19 Unknown Lymph # 0.7 K/mm3 (1.2-5.4) L 09/30/19 Unknown Surry # 0.2 K/mm3 (0.0-0.8) 09/30/19 Unknown Eos # 0.0 K/mm3 (0.0-0.4) 09/30/19 Unknown Baso # 0.0 K/mm3 (0.0-0.1) 09/30/19 Unknown Add Manual Diff Complete 09/29/19 16:27 Total Counted 100 09/29/19 16:27 Seg Neutrophils % 80.4 % (40.0-70.0) H 09/30/19 Unknown Seg Neuts % (Manual) 87.0 % (40.0-70.0) H 09/29/19 16:27 Band Neutrophils % 0 % 09/29/19 16:27 Lymphocytes % (Manual) 12.0 % (13.4-35.0) L 09/29/19 16:27 Reactive Lymphs % (Man) 0 % 09/29/19 16: Monocytes % (Manual) 0 % (0.0-7.3) 09/29/19 16:27 Eosinophils % (Manual) 1.0 % (0.0-4.3) 09/29/19 16:27 Basophils % (Manual) 0 % (0.0-1.8) 09/29/19 16:27 Metamyelocytes % 0 % 09/29/19 16: Myelocytes % 0 % 09/29/19 16: Promyelocytes % 0 % 09/29/19 16: Blast Cells % 0 % 09/29/19 16: Nucleated RBC % Not Reportable 09/29/19 16: Seg Neutrophils # 3.9 K/mm3 (1.8-7.7) 09/30/19 Unknown Seg Neutrophils # Man 6.8 K/mm3 (1.8-7.7) 09/29/19 16: Band Neutrophils # 0.0 K/mm3 09/29/19 16:27 Lymphocytes # (Manual) 0.9 K/mm3 (1.2-5.4) L 09/29/19 16:27 Abs React Lymphs (Man) 0.0 K/mm3 09/29/19 16:27 Monocytes # (Manual) 0.0 K/mm3 (0.0-0.8) 09/29/19 16: Eosinophils # (Manual) 0.1 K/mm3 (0.0-0.4) 09/29/19 16:27 Basophils # (Manual) 0.0 K/mm3 (0.0-0.1) 09/29/19 16:27 Metamyelocytes # 0.0 K/mm3 09/29/19 16:27 Myelocytes # 0.0 K/mm3 09/29/19 16: Promyelocytes # 0.0 K/mm3 09/29/19 16:27 Blast Cells # 0.0 K/mm3 09/29/19 16:27 WBC Morphology Not Reportable 09/29/19 16: Hypersegmented Neuts Not Reportable 09/29/19 16: Hyposegmented Neuts Not Reportable 09/29/19 16:27 Hypogranular Neuts Not Reportable 09/29/19 16:27 Smudge Cells Not Reportable 09/29/19 16:27 Toxic Granulation Not Reportable 09/29/19 16:27 Toxic Vacuolation Not Reportable 09/29/19 16:27 Dohle Bodies Not Reportable 09/29/19 16:27 Pelger-Huet Anomaly Not Reportable 09/29/19 16:27 Nancy Rods Not Reportable 09/29/19 16:27 Platelet Estimate Consistent w auto 09/29/19 16:27 Clumped Platelets Not Reportable 09/29/19 16:27 Plt Clumps, EDTA Not Reportable 09/29/19 16:27 Large Platelets Not Reportable 09/29/19 16:27 Giant Platelets Not Reportable 09/29/19 16:27 Platelet Satelliting Not Reportable 09/29/19 16:27 Plt Morphology Comment Not Reportable 09/29/19 16:27 RBC Morphology Normal 09/29/19 16:27 Dimorphic RBCs Not Reportable 09/29/19 16:27 Polychromasia Not Reportable 09/29/19 16:27 Hypochromasia Not Reportable 09/29/19 16:27 Poikilocytosis Not Reportable 09/29/19 16:27 Anisocytosis Not Reportable 09/29/19 16:27 Microcytosis Not Reportable 09/29/19 16:27 Macrocytosis Not Reportable 09/29/19 16:27 Spherocytes Not Reportable 09/29/19 16:27 Pappenheimer Bodies Not Reportable 09/29/19 16:27 Sickle Cells Not Reportable 09/29/19 16:27 Target Cells Not Reportable 09/29/19 16:27 Tear Drop Cells Not Reportable 09/29/19 16:27 Ovalocytes Not Reportable 09/29/19 16:27 Helmet Cells Not Reportable 09/29/19 16:27 Constantino-Dongola Bodies Not Reportable 09/29/19 16:27 [place] Rings Not Reportable 09/29/19 16:27 Enzo Cells Not Reportable 09/29/19 16:27 Bite Cells Not Reportable 09/29/19 16:27 Crenated Cell Not Reportable 09/29/19 16:27 Elliptocytes Not Reportable 09/29/19 16:27 Acanthocytes (Spur) Not Reportable 09/29/19 16:27 Rouleaux Not Reportable 09/29/19 16:27 Hemoglobin C Crystals Not Reportable 09/29/19 16:27 Schistocytes Not Reportable 09/29/19 16:27 Malaria parasites Not Reportable 09/29/19 16:27 Suman Bodies Not Reportable 09/29/19 16:27 Hem Pathologist Commnt No 09/29/19 16:27 PT 13.2 Sec. (12.2-14.9) 09/29/19 16:27 INR 0.99 (0.87-1.13) 09/29/19 16:27 VBG pH 7.442 (7.320-7.420) H 09/29/19 16:27 Sodium 137 mmol/L (137-145) 09/30/19 Unknown Potassium 3.7 mmol/L (3.6-5.0) 09/30/19 Unknown Chloride 100.8 mmol/L (98-107) 09/30/19 Unknown Carbon Dioxide 22 mmol/L (22-30) 09/30/19 Unknown Anion Gap 18 mmol/L 09/30/19 Unknown BUN 9 mg/dL (7-17) 09/30/19 Unknown Creatinine 1.0 mg/dL (0.7-1.2) 09/30/19 Unknown Estimated GFR > 60 ml/min 09/30/19 Unknown BUN/Creatinine Ratio 9 % 09/30/19 Unknown Glucose 100 mg/dL (65-100) 09/30/19 Unknown Hemoglobin A1c 5.9 % (4-6) 09/30/19 Unknown Lactic Acid 0.90 mmol/L (0.7-2.0) 09/29/19 20:37 Calcium 8.4 mg/dL (8.4-10.2) 09/30/19 Unknown Total Bilirubin 0.30 mg/dL (0.1-1.2) 09/30/19 Unknown AST 23 units/L (5-40) 09/30/19 Unknown ALT 9 units/L (7-56) 09/30/19 Unknown Alkaline Phosphatase 50 units/L (35-129) 09/30/19 Unknown Total Protein 6.6 g/dL (6.3-8.2) 09/30/19 Unknown Albumin 3.5 g/dL (3.9-5) L 09/30/19 Unknown Albumin/Globulin Ratio 1.1 % 09/30/19 Unknown Procalcitonin < 0.05 ng/mL (<0.15) 10/01/19 05:40 Influenza A (Rapid) Negative (Negative) 09/29/19 21:29 Influenza B (Rapid) Negative (Negative) 09/29/19 21:29 Microbiology: Microbiology 09/29/19 16:27 Peripheral/Venous Blood Culture - Preliminary NO GROWTH AFTER 4 DAYS 09/29/19 16:27 Peripheral/Venous Blood Culture - Preliminary NO GROWTH AFTER 4 DAYS Dickey/IV: Voiding Method Toilet IV Catheter Type [Right Hand] Peripheral IV IV Catheter Type [Right Peripheral IV Forearm] Active Medications - Current Medications Current Medications: Generic Name Dose Route Start Last Admin Trade Name Freq PRN Reason Stop Dose Admin Acetaminophen 650 mg 09/29/19 22:01 09/30/19 13:01 Tylenol PO 650 mg Q4H PRN Administration Pain MILD(1-3)/Fever >100.5/FLORES Albuterol 2.5 mg 09/30/19 08:00 10/04/19 09:31 Proventil IH 2.5 mg TIDRT BELKIS Administration Albuterol 2.5 mg 09/30/19 00:56 10/01/19 01:40 Proventil IH 2.5 mg Q4HRT PRN Administration Shortness Of Breath Aspirin 81 mg 09/30/19 10:00 10/04/19 09:47 Halfprin Ec PO 81 mg DAILY BELKIS Administration Cholecalciferol 2,000 unit 09/30/19 10:00 10/04/19 09:47 Vitamin D3 PO 2,000 unit QDAY BELKIS Administration Enoxaparin Sodium 40 mg 10/01/19 22:00 10/03/19 21:12 Enoxaparin SUB-Q 40 mg QDAY@2200 [facility] Administration Guaifenesin 200 mg 10/03/19 10:00 10/03/19 17:33 Robitussin PO 200 mg Q4HR PRN Administration Cough Hydromorphone HCl 0.5 mg 09/29/19 22:01 Dilaudid IV Q3H PRN Pain , Severe (7-10) Sodium Chloride 1,000 mls @ 42 mls/hr 09/29/19 22:15 10/03/19 09:50 Nacl 0.9% 1000 Ml IV 42 mls/hr DIRECT BELKIS Administration Methylprednisolone 4 mg 09/30/19 10:00 10/04/19 09:47 Medrol PO 4 mg DAILY BELKIS Administration Metoclopramide HCl 10 mg 09/29/19 22:01 Reglan IV Q6H PRN Nausea And Vomiting Metoprolol Tartrate 12.5 mg 09/29/19 22:00 10/04/19 09:48 Metoprolol PO 12.5 mg BID BELKIS Administration Montelukast Sodium 10 mg 09/30/19 18:00 10/03/19 17:42 Singulair PO 10 mg QPM BELKIS Administration Ondansetron HCl 4 mg 09/29/19 22:01 Zofran IV Q8H PRN Nausea And Vomiting Oxycodone/Acetaminophen 1 tab 09/29/19 22:01 10/01/19 08:26 Percocet 5/325 PO 1 tab Q6H PRN Administration Pain, Moderate (4-6) Pravastatin Sodium 20 mg 09/29/19 22:00 10/03/19 21:12 Pravachol PO 20 mg QHS BELKIS Administration Ranolazine 500 mg 09/29/19 22:00 10/04/19 09:47 Ranexa Er PO 500 mg BID BELKIS Administration Sodium Chloride 10 ml 09/30/19 10:00 10/04/19 09:48 Sodium Chloride Flush Syringe 10 Ml IV 10 ml BID BELKIS Administration Sodium Chloride 10 ml 09/29/19 22:01 Sodium Chloride Flush Syringe 10 Ml IV PRN PRN LINE FLUSH
--- NOTE | 2019-10-04 11:26 | Consultation ---
History of Present Illness Consult date: 10/04/19 Requesting physician: BREANA OROZCO Reason for consult: hypoxemia History of present illness: 54-year-old female past medical history asthma, hyperlipidemia, hypertension admitted to the hospital with flulike symptoms. She notes that approximately a week prior to admission she developed fevers with associated myalgias, cough with clear sputum. 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 Around the onset of her symptoms, she drove back down to [place] from [place]. She notes that she did receive her flu vaccine this season. Febrile to 102.5 degrees with a normal white count of 5 with a lymphopenia. She is currently receiving ceftriaxone and azithromycin. Her influenza serologies are negative. Her procalcitonin is unremarkable. She does have a history of mild intermittent asthma, and is a life-long non smoker She is not getting better, she has ongoing hypoxia with ongoing fevers and chills. A pulmonary consult has been placed for further help in management. Thank you. Patient was seen and examined. Vitals, labs, medications, chart and imaging reviewed. At the time of consult was ordered, I ordered a follow up CXR- which shows worsening bilateral infiltrates Imaging personally reviewed: Chest x-ray: Left lower lobe pneumonia. Review of Systems: Bold if positive, otherwise negative General: fevers, chills, rigors HEENT: visual disturbance, diplopia, eye pain Respiratory: cough, sputum, hemoptysis, shortness of breath Cardiovascular: chest pain, syncope Gastrointestinal: nausea, vomiting, diarrhea, abdominal pain Genitourinary: dysuria, hematuria, flank pain Musculoskeletal: neck pain, back pain, joint pain, edema Neurologic: headaches, seizures Hematologic: easy bruising or bleeding Endocrine: night sweats, acute weight loss Skin: rash, jaundice, redness Psychiatric: suicidal, homicidal ideation Past History Past Medical History: other (As per HPI) Past Surgical History: No surgical history Social history: denies: smoking, alcohol abuse Family history: no significant family history Medications and Allergies Allergies Allergy/AdvReac Type Severity Reaction Status Date / Time No Known Allergies Allergy Unverified 09/14/17 11:51 Home Medications Medication Instructions Recorded Confirmed Last Taken Type Aspirin [Aspirin EC] 81 mg PO DAILY 10/13/17 10/13/1718 History Cholecalciferol (Vitamin D3) 2,000 unit PO QDAY 10/13/17 10/13/17 10/12/17 History [Vitamin D3 2,000 UNIT CAP] Montelukast [Singulair] 10 mg PO QPM 10/13/17 10/13/17 10/12/17 History methylPREDNISolone 4 mg PO DAILY 10/13/17 10/13/17 10/12/17 History [Methylprednisolone] Metoprolol [Lopressor TAB] 12.5 mg PO BID #60 tablet 10/16/17 Unknown Rx Pravastatin [Pravachol] 20 mg PO QHS #30 tablet 10/16/17 Unknown Rx Ranolazine ER [Ranexa ER] 500 mg PO BID #60 tablet 10/16/17 Unknown Rx Active Meds: Active Medications Acetaminophen (Tylenol) 650 mg PO Q4H PRN PRN Reason: Pain MILD(1-3)/Fever >100.5/FLORES Last Admin: 09/30/19 13:01 Dose: 650 mg Documented by: Albuterol (Proventil) 2.5 mg IH TIDRT [facility] Last Admin: 10/04/19 09:31 Dose: 2.5 mg Documented by: Albuterol (Proventil) 2.5 mg IH Q4HRT PRN PRN Reason: Shortness Of Breath Last Admin: 10/01/19 01:40 Dose: 2.5 mg Documented by: Aspirin (Halfprin Ec) 81 mg PO DAILY [facility] Last Admin: 10/04/19 09:47 Dose: 81 mg Documented by: Cholecalciferol (Vitamin D3) 2,000 unit PO QDAY [facility] Last Admin: 10/04/19 09:47 Dose: 2,000 unit Documented by: Enoxaparin Sodium (Enoxaparin) 40 mg SUB-Q QDAY@2200 [facility] Last Admin: 10/03/19 21:12 Dose: 40 mg Documented by: Guaifenesin (Robitussin) 200 mg PO Q4HR PRN PRN Reason: Cough Last Admin: 10/03/19 17:33 Dose: 200 mg Documented by: Hydromorphone HCl (Dilaudid) 0.5 mg IV Q3H PRN PRN Reason: Pain , Severe (7-10) Sodium Chloride (Nacl 0.9% 1000 Ml) 1,000 mls @ 42 mls/hr IV DIRECT [facility] Last Admin: 10/03/19 09:50 Dose: 42 mls/hr Documented by: Methylprednisolone (Medrol) 4 mg PO DAILY [facility] Last Admin: 10/04/19 09:47 Dose: 4 mg Documented by: Metoclopramide HCl (Reglan) 10 mg IV Q6H PRN PRN Reason: Nausea And Vomiting Metoprolol Tartrate (Metoprolol) 12.5 mg PO BID [facility] Last Admin: 10/04/19 09:48 Dose: 12.5 mg Documented by: Montelukast Sodium (Singulair) 10 mg PO QPM [facility] Last Admin: 10/03/19 17:42 Dose: 10 mg Documented by: Ondansetron HCl (Zofran) 4 mg IV Q8H PRN PRN Reason: Nausea And Vomiting Oxycodone/Acetaminophen (Percocet 5/325) 1 tab PO Q6H PRN PRN Reason: Pain, Moderate (4-6) Last Admin: 10/01/19 08:26 Dose: 1 tab Documented by: Pravastatin Sodium (Pravachol) 20 mg PO QHS [facility] Last Admin: 10/03/19 21:12 Dose: 20 mg Documented by: Ranolazine (Ranexa Er) 500 mg PO BID [facility] Last Admin: 10/04/19 09:47 Dose: 500 mg Documented by: Sodium Chloride (Sodium Chloride Flush Syringe 10 Ml) 10 ml IV BID [facility] Last Admin: 10/04/19 09:48 Dose: 10 ml Documented by: Sodium Chloride (Sodium Chloride Flush Syringe 10 Ml) 10 ml IV PRN PRN PRN Reason: LINE FLUSH Physical Examination Vital signs: Vital Signs Temp Pulse Resp BP Pulse Ox 102.5 F H 103 H 20 119/69 92 09/29/19 16:18 09/29/19 16:18 09/29/19 16:18 09/29/19 16:18 09/29/19 16:18 General appearance: alert, appears uncomfortable, other (mild respiratory distress, atraumatic, normocephalic) Eyes: non-icteric ENT: oropharynx dry Neck: supple, no lymphadenopathy, no JVD Effort: mildly labored Ascultation: Bilateral: diminished breath sounds, rhonchi Cardiovascular: regular rate and rhythm, other (S1,S2) Gastrointestinal: normoactive bowel sounds, soft, non-tender, non-distended Integumentary: normal Extremities: no cyanosis, no edema, pink and warm, pulses normal Musculoskeletal: no deformities Gait: normal gait, normal posture normal mental status, non-focal exam, pupils equal and round, CN II-XII normal, motor strength normal and anxious Results - Laboratory Findings CBC and BMP: 09/30/19 Unknown 09/30/19 Unknown PT/INR, D-dimer PT 13.2 Sec. (12.2-14.9) 09/29/19 16:27 INR 0.99 (0.87-1.13) 09/29/19 16:27 Abnormal lab findings: Abnormal Labs 09/29/19 09/29/19 09/29/19 16:27 16:27 16:27 Lymph # Seg Neutrophils % Seg Neuts % (Manual) 87.0 H Lymphocytes % (Manual) 12.0 L Lymphocytes # (Manual) 0.9 L VBG pH 7.442 H Sodium 134 L Chloride 97.4 L Carbon Dioxide 21 L Glucose 105 H Albumin 09/30/19 09/30/19 Unknown Unknown Lymph # 0.7 L Seg Neutrophils % 80.4 H Seg Neuts % (Manual) Lymphocytes % (Manual) Lymphocytes # (Manual) VBG pH Sodium Chloride Carbon Dioxide Glucose Albumin 3.5 L - Diagnostic Findings Chest x-ray: image reviewed (Worsening bilateral infiltarates on CXR from today) Assessment and Plan Acute hypoxemic respiratory failure on supplemental oxygen at 5L/min Sepsis secondary to pneumonia PUI COVID19. Mild intermittent asthma h/o Hypertension -CXR( already done) -ABG stat -Stop IVF, fluid restrictive strategies -Stop steroids- there is data to suggest that patients who receive steroids, have a worse clinical course -Discussed with ID- trial of hydroxychloroquine( anecdotal data to suggest that it is helpful. It is a relatively innocuous medication in the acute setting) -Wean supplemental oxygen to keep O2 sats > 90% - continue airborne and contact precautions - continue Bronchodilators (CLAIR) with pulmonary hygiene per RT - follow COVID-19 result - complete empiric CAP antibiotics - prn analgesia per pain score - PT/OT as tolerated - accuchecks with glycemic control per SSI for target blood glucose < 180 mg/dL - home oxygen evaluation at discharge - VTE prophylaxis - Pulmonary out patient follow up post discharge - Monitor closely, low threshold for MVS if indicated -Continue all chronic home medications as indicated - continue other care per attending / other consultants Discussed care plan with the patient. Discussed with primary Attending. Please do not hesitate to call with questions or concerns. Will follow CONDITION: CRITICAL PROGNOSIS: GUARDED CODE STATUS: FULL CODE The high probability of a clinically significant, sudden or life-threatening deterioration of the respiratory system required my full and direct attention, intervention and personal management. The aggregate critical care time was [31] minutes without overlap. Time includes spent on; [x] Data Review and interpretation [x] Patient assessment and monitoring of vital signs [x] Documentation [x] Medication orders and management Disposition. Patient may be discharged when medically stable if testing swabs have been obtained. Upon discharge patient should self-quarantine at home until COVID testing returns. If negative, self-quarantine may end. If positive patient should self-quarantine for 14 days from symptom beginning. Public health and infection prevention will follow up with patients to notify them of their test results. Patients should return to hospital regardless if they have worsening fevers or respiratory status.
--- NOTE | 2019-10-04 12:04 | XRay Report ---
CHEST 1 VIEW 10/04/2019 10:57 AM INDICATION / CLINICAL INFORMATION: acute hypoxic resp failure. COMPARISON: 09/29/2019 FINDINGS: SUPPORT DEVICES: None. HEART / MEDIASTINUM: No significant abnormality. LUNGS / PLEURA: There are worsening patchy bilateral parenchymal opacities. No pneumothorax. ADDITIONAL FINDINGS: No significant additional findings. IMPRESSION: 1. Worsening patchy bilateral pulmonary parenchymal opacities. Signer Name: Yo Glez MD Signed: 10/04/2019 12:00 PM Workstation Name: [id number]
--- NOTE | 2019-10-04 12:08 | Progress Note ---
Assessment and Plan Cultures: Blood culture 09/29/2019 no growth to date Urine culture 09/29/2019 no growth to date A/P: 54-year-old female past medical history hypertension, hyperlipidemia, asthma admitted to the hospital with flulike symptoms and concern for novel coronavirus infection. #COVID19 rule out: Paperwork filled out previously, appreciate assistance with this. We will follow-up results from [facility]. Continue droplet and contact precautions for now. She is fairly high risk given her frequent meeting of new people, and background of asthma. Monitor for decompensation. Has fevers and lymphopenia. #Pneumonia: Continue empiric antibiotics for now with ceftriaxone and azithromycin. No risk factors for resistant disease at this point. Monitor fevers. Recs: -Given ongoing need for O2 and risk for COVID-19 would start hydroxychloroquine 400mg q12h x2 doses followed by 200mg q12h for 4 days. -Follow-up COVID-19 testing from [facility]. -Procalcitonin normal, indicating likely viral etiology of pneumonia. - Patient may be discharged when medically stable if testing swabs have been obtained. Upon discharge patient should self-quarantine at home until COVID testing returns. If negative, self-quarantine may end. If positive patient should self-quarantine for 14 days from symptom beginning. Public health and infection prevention will follow up with patients to notify them of their test results. Patients should return to hospital regardless if they have worsening fevers or respiratory status. Thank you for the consult, will continue to follow Lewis Kang MD [facility] M: [phone] O: [phone] F: [phone] Subjective Date of service: 10/04/19 Interval history: Afebrile, normal white count. Patient still requiring significant amounts of oxygen. Objective - Exam Narrative Exam: Physical Exam: Constitutional: Alert, cooperative. On venti mask, requiring O2 Neck: Supple, no meningeal signs Cardiovascular: S1, S2 normal. Respiratory: L crackles GI: Soft, non-tender; bowel sounds normal. No peritoneal signs. Musculoskeletal: No pedal edema, no cyanosis. Skin: No rash or abscess Hem/Lymphatic: No palpable cervical or supraclavicular nodes. No lymphangitis Psych: Mood ok. Affect normal Neurological: Awake, alert, oriented. No gross abnormality - Constitutional Vitals: Vital Signs Temp Pulse Resp BP Pulse Ox 97.8 F 82 20 122/74 97 10/04/19 06:51 10/04/19 09:31 10/04/19 09:31 10/04/19 06:51 10/04/19 06:51 Temperature -Last 24 Hours Temperature 97.8 F Temperature 97.7 F Temperature 98.4 F - Labs CBC & Chem 7: 09/30/19 Unknown 09/30/19 Unknown
[2019-10-04] MEDS: HYDROXYCHLOROQUINE 200 MG TAB PO SCH (13:30)
[2019-10-04] MEDS ORDERED: FUROSEMIDE 20 MG/2 ML INJ IV SCH (14:00)
[2019-10-04 16:08] LABS: ABG Base Excess 0.3 mmol/L (-2.0-3.0); ABG HCO3 24.6 mmol/L (20.0-26.0); ABG Methemoglobin 0.6 % (0.0-1.5); ABG Oxygen Saturation 96.9 % (95.0-99.0); ABG PCO2 38.8 mm Hg; ABG PH 7.421 pH Units (7.350-7.450); ABG PO2 86.5 mm Hg (80.0-90.0)
[2019-10-04] MEDS: MONTELUKAST 10 MG TAB PO SCH (19:51)
[2019-10-04] MEDS: ENOXAPARIN 40 MG/0.4 ML INJ SUB-Q SCH (21:49)
[2019-10-04] MEDS: PRAVASTATIN 20 MG TAB PO SCH (21:49)
[2019-10-05] MEDS: HYDROXYCHLOROQUINE 200 MG TAB PO SCH ×3 (01:12→22:17)
[2019-10-05 08:58] LABS: Hematocrit 34.9 % (30.3-42.9); Hemoglobin 11.8 gm/dl (10.1-14.3); Mean Corpuscular HGB Conc 34 % (30-34); Mean Corpuscular Volume 87 fl (79-97); Platelet Count 520 K/mm3 (140-440); Red Blood Count 4.03 M/mm3 (3.65-5.03); Red Cell Distribution Width 14.4 % (13.2-15.2)
[2019-10-05] MEDS: RANOLAZINE ER 500 MG TAB 12HR PO SCH ×2 (09:05→22:17)
[2019-10-05] MEDS: ASPIRIN EC 81 MG TAB PO SCH (09:05)
[2019-10-05] MEDS: METOPROLOL TARTRATE 25 MG TAB PO SCH ×2 (09:05→22:16)
[2019-10-05] MEDS: CHOLECALCIFEROL (VIT D3) 1000 UNIT (25 mcg) TAB PO SCH (09:06)
[2019-10-05 09:12] LABS: BUN/Creatinine Ratio 13; Blood Urea Nitrogen 12 mg/dL (7-17); Calcium 9.3 mg/dL (8.4-10.2); Hemolysis Index 1
[2019-10-05] MEDS: ALBUTEROL 2.5 MG/3 ML NEBU IH SCH ×3 (09:21→22:01)
[2019-10-05 11:17] LABS: Basophils % (Manual) 0 % (0.0-1.8); Eosinophils % (Manual) 0 % (0.0-4.3); Myelocytes # (Manual) 0.1 K/mm3; Total Cells Counted 100
[2019-10-05 11:19] LABS: Giant Platelets Few; Platelet Estimate Consistent w Auto; Target Cells Few
--- NOTE | 2019-10-05 11:33 | Progress Note ---
Assessment and Plan Assessment and plan: Suspected COVID19. Paperwork filled out previously, appreciate assistance with this. We will follow-up results from [facility]. Continue droplet and contact precautions for now. She is fairly high risk given her frequent meeting of new people, and background of asthma. Monitor for decompensation. Has fevers and lymphopenia. Sepsis. Etiology secondary to pneumonia. Continue sepsis protocol and IV antibiotics per infectious disease consultation. Follow-up blood cultures pneumonia: Continue empiric antibiotics for now with ceftriaxone and azithromycin. No risk factors for resistant disease at this point. Monitor fevers. Acute hypoxic respiratory failure. Etiology secondary to above. Hypertension. Continue antihypertensive medications DVT prophylaxis. Continue Lovenox. Disposition. Patient may be discharged when medically stable if testing swabs have been obtained. Upon discharge patient should self-quarantine at home until COVID testing returns. If negative, self-quarantine may end. If positive patient should self-quarantine for 14 days from symptom beginning. [facility] and infection prevention will follow up with patients to notify them of their test results. Patients should return to hospital regardless if they have worsening fevers or respiratory status. 10/04/2019patient still requiring large amounts of oxygen with FiO2 of 50% via Venturi mask. Follow-up ABG. Consult pulmonary for further evaluation. Antibiotics completed and follow off antibiotics for now. Procalcitonin normal, indicating viral etiology of pneumonia. 10/05/19-patient's oxygen has been weaned down to 2-3 L. We will continue to wean oxygen to room air and potentially discharge later today or in a.m. Patient will need follow-up with COVID testing and continue a self quarantine for 14 days after discharge. History Interval history: 54-year-old female past medical history hypertension, hyperlipidemia, asthma admitted to the hospital with flu-like symptoms and concern for novel coronavirus infection. Hospitalist Physical - Constitutional Vitals: Temp Pulse Resp BP Pulse Ox 97.7 F 75 20 127/76 98 10/05/19 05:48 10/05/19 09:21 10/05/19 09:21 10/05/19 09:05 10/05/19 09:21 General appearance: Present: no acute distress, well-nourished - EENT Eyes: Present: PERRL, EOM intact ENT: hearing intact, clear oral mucosa, dentition normal - Neck Neck: Present: supple, normal ROM - Respiratory Respiratory effort: normal Respiratory: bilateral: CTA - Cardiovascular Rhythm: regular Heart Sounds: Present: S1 & S2. Absent: gallop, rub - Extremities Extremities: no ischemia, No edema, Full ROM - Abdominal General gastrointestinal: soft, non-tender, non-distended, normal bowel sounds - Integumentary Integumentary: Present: clear, warm, dry - Neurologic Neurologic: CNII-XII intact, moves all extremities Results - Labs CBC & Chem 7: 10/05/19 08:00 10/05/19 08:00 Labs: Laboratory Last Values WBC 10.6 K/mm3 (4.5-11.0) 10/05/19 08:00 RBC 4.03 M/mm3 (3.65-5.03) 10/05/19 08:00 Hgb 11.8 gm/dl (10.1-14.3) 10/05/19 08:00 Hct 34.9 % (30.3-42.9) 10/05/19 08:00 MCV 87 fl (79-97) 10/05/19 08:00 MCH 29 pg (28-32) 10/05/19 08:00 MCHC 34 % (30-34) 10/05/19 08:00 RDW 14.4 % (13.2-15.2) 10/05/19 08:00 Plt Count 520 K/mm3 (140-440) H 10/05/19 08:00 Lymph % (Auto) 15.1 % (13.4-35.0) 09/30/19 Unknown Smyth % (Auto) 4.2 % (0.0-7.3) 09/30/19 Unknown Eos % (Auto) 0.0 % (0.0-4.3) 09/30/19 Unknown Baso % (Auto) 0.3 % (0.0-1.8) 09/30/19 Unknown Lymph # 0.7 K/mm3 (1.2-5.4) L 09/30/19 Unknown Smyth # 0.2 K/mm3 (0.0-0.8) 09/30/19 Unknown Eos # 0.0 K/mm3 (0.0-0.4) 09/30/19 Unknown Baso # 0.0 K/mm3 (0.0-0.1) 09/30/19 Unknown Add Manual Diff Complete 10/05/19 08:00 Total Counted 100 10/05/19 08:00 Seg Neutrophils % 80.4 % (40.0-70.0) H 09/30/19 Unknown Seg Neuts % (Manual) 61.0 % (40.0-70.0) 10/05/19 08:00 Band Neutrophils % 0 % 10/05/19 08:00 Lymphocytes % (Manual) 22.0 % (13.4-35.0) 10/05/19 08:00 Reactive Lymphs % (Man) 2.0 % 10/05/19 08:00 Monocytes % (Manual) 9.0 % (0.0-7.3) H 10/05/19 08:00 Eosinophils % (Manual) 0 % (0.0-4.3) 10/05/19 08:00 Basophils % (Manual) 0 % (0.0-1.8) 10/05/19 08:00 Metamyelocytes % 5.0 % 10/05/19 08:00 Myelocytes % 1.0 % 10/05/19 08:00 Promyelocytes % 0 % 10/05/19 08:00 Blast Cells % 0 % 10/05/19 08:00 Nucleated RBC % 1.0 % (0.0-0.9) H 10/05/19 08:00 Seg Neutrophils # 3.9 K/mm3 (1.8-7.7) 09/30/19 Unknown Seg Neutrophils # Man 6.5 K/mm3 (1.8-7.7) 10/05/19 08:00 Band Neutrophils # 0.0 K/mm3 10/05/19 08:00 Lymphocytes # (Manual) 2.3 K/mm3 (1.2-5.4) 10/05/19 08:00 Abs React Lymphs (Man) 0.2 K/mm3 10/05/19 08:00 Monocytes # (Manual) 1.0 K/mm3 (0.0-0.8) H 10/05/19 08:00 Eosinophils # (Manual) 0.0 K/mm3 (0.0-0.4) 10/05/19 08:00 Basophils # (Manual) 0.0 K/mm3 (0.0-0.1) 10/05/19 08:00 Metamyelocytes # 0.5 K/mm3 10/05/19 08:00 Myelocytes # 0.1 K/mm3 10/05/19 08:00 Promyelocytes # 0.0 K/mm3 10/05/19 08:00 Blast Cells # 0.0 K/mm3 10/05/19 08:00 WBC Morphology Not Reportable 10/05/19 08:00 Hypersegmented Neuts Not Reportable 10/05/19 08:00 Hyposegmented Neuts Not Reportable 10/05/19 08:00 Hypogranular Neuts Not Reportable 10/05/19 08:00 Smudge Cells Not Reportable 10/05/19 08:00 Toxic Granulation Not Reportable 10/05/19 08:00 Toxic Vacuolation Not Reportable 10/05/19 08:00 Dohle Bodies Not Reportable 10/05/19 08:00 Pelger-Huet Anomaly Not Reportable 10/05/19 08:00 Nancy Rods Not Reportable 10/05/19 08:00 Platelet Estimate Consistent w auto 10/05/19 08:00 Clumped Platelets Not Reportable 10/05/19 08:00 Plt Clumps, EDTA Not Reportable 10/05/19 08:00 Large Platelets Not Reportable 10/05/19 08:00 Giant Platelets Few 10/05/19 08:00 Platelet Satelliting Not Reportable 10/05/19 08:00 Plt Morphology Comment Not Reportable 10/05/19 08:00 RBC Morphology Not Reportable 10/05/19 08:00 Dimorphic RBCs Not Reportable 10/05/19 08:00 Polychromasia Few 10/05/19 08:00 Hypochromasia Not Reportable 10/05/19 08:00 Poikilocytosis Not Reportable 10/05/19 08:00 Anisocytosis Not Reportable 10/05/19 08:00 Microcytosis Not Reportable 10/05/19 08:00 Macrocytosis Not Reportable 10/05/19 08:00 Spherocytes Not Reportable 10/05/19 08:00 Pappenheimer Bodies Not Reportable 10/05/19 08:00 Sickle Cells Not Reportable 10/05/19 08:00 Target Cells Few 10/05/19 08:00 Tear Drop Cells Not Reportable 10/05/19 08:00 Ovalocytes Not Reportable 10/05/19 08:00 Helmet Cells Not Reportable 10/05/19 08:00 Constantino-Blawnox Bodies Not Reportable 10/05/19 08:00 [place] Rings Not Reportable 10/05/19 08:00 [place] Cells Not Reportable 10/05/19 08:00 Bite Cells Not Reportable 10/05/19 08:00 Crenated Cell Not Reportable 10/05/19 08:00 Elliptocytes Not Reportable 10/05/19 08:00 Acanthocytes (Spur) Not Reportable 10/05/19 08:00 Rouleaux Not Reportable 10/05/19 08:00 Hemoglobin C Crystals Not Reportable 10/05/19 08:00 Schistocytes Not Reportable 10/05/19 08:00 Malaria parasites Not Reportable 10/05/19 08:00 Suman Bodies Not Reportable 10/05/19 08:00 Hem Pathologist Commnt No 10/05/19 08:00 PT 13.2 Sec. (12.2-14.9) 09/29/19 16:27 INR 0.99 (0.87-1.13) 09/29/19 16:27 ABG pH 7.421 pH Units (7.350-7.450) 10/04/19 15:31 ABG pCO2 38.8 mm Hg 10/04/19 15:31 ABG pO2 86.5 mm Hg (80.0-90.0) 10/04/19 15:31 ABG HCO3 24.6 mmol/L (20.0-26.0) 10/04/19 15:31 ABG O2 Saturation 96.9 % (95.0-99.0) 10/04/19 15:31 ABG O2 Content 16.4 (0.0-44) 10/04/19 15:31 ABG Base Excess 0.3 mmol/L (-2.0-3.0) 10/04/19 15:31 ABG Hemoglobin 12.2 gm/dl (12.0-16.0) 10/04/19 15:31 ABG Carboxyhemoglobin 1.1 % (0.0-5.0) 10/04/19 15:31 ABG Methemoglobin 0.6 % (0.0-1.5) 10/04/19 15:31 VBG pH 7.442 (7.320-7.420) H 09/29/19 16:27 Oxyhemoglobin 95.3 % (95.0-99.0) 10/04/19 15:31 FiO2 32 % 10/04/19 15:31 Sodium 138 mmol/L (137-145) 10/05/19 08:00 Potassium 3.6 mmol/L (3.6-5.0) 10/05/19 08:00 Chloride 100.1 mmol/L (98-107) 10/05/19 08:00 Carbon Dioxide 23 mmol/L (22-30) 10/05/19 08:00 Anion Gap 19 mmol/L 10/05/19 08:00 BUN 12 mg/dL (7-17) 10/05/19 08:00 Creatinine 0.9 mg/dL (0.7-1.2) 10/05/19 08:00 Estimated GFR > 60 ml/min 10/05/19 08:00 BUN/Creatinine Ratio 13 % 10/05/19 08:00 Glucose 86 mg/dL (65-100) 10/05/19 08:00 Hemoglobin A1c 5.9 % (4-6) 09/30/19 Unknown Lactic Acid 0.90 mmol/L (0.7-2.0) 09/29/19 20:37 Calcium 9.3 mg/dL (8.4-10.2) 10/05/19 08:00 Total Bilirubin 0.30 mg/dL (0.1-1.2) 09/30/19 Unknown AST 23 units/L (5-40) 09/30/19 Unknown ALT 9 units/L (7-56) 09/30/19 Unknown Alkaline Phosphatase 50 units/L (35-129) 09/30/19 Unknown Total Protein 6.6 g/dL (6.3-8.2) 09/30/19 Unknown Albumin 3.5 g/dL (3.9-5) L 09/30/19 Unknown Albumin/Globulin Ratio 1.1 % 09/30/19 Unknown Procalcitonin < 0.05 ng/mL (<0.15) 10/01/19 05:40 Influenza A (Rapid) Negative (Negative) 09/29/19 21:29 Influenza B (Rapid) Negative (Negative) 09/29/19 21:29 Microbiology: Microbiology 03/15/20 16:27 Peripheral/Venous Blood Culture - Final NO GROWTH AFTER 5 DAYS 09/29/19 16:27 Peripheral/Venous Blood Culture - Final NO GROWTH AFTER 5 DAYS Dickey/IV: Voiding Method Toilet IV Catheter Type [Right Hand] Peripheral IV IV Catheter Type [Right Peripheral IV Forearm] Active Medications - Current Medications Current Medications: Generic Name Dose Route Start Last Admin Trade Name Freq PRN Reason Stop Dose Admin Acetaminophen 650 mg 09/29/19 22:01 09/30/19 13:01 Tylenol PO 650 mg Q4H PRN Administration Pain MILD(1-3)/Fever >100.5/FLORES Albuterol 2.5 mg 09/30/19 08:00 10/05/19 09:21 Proventil IH 2.5 mg TIDRT BELKIS Administration Albuterol 2.5 mg 09/30/19 00:56 10/01/19 01:40 Proventil IH 2.5 mg Q4HRT PRN Administration Shortness Of Breath Aspirin 81 mg 09/30/19 10:00 10/05/19 09:05 Halfprin Ec PO 81 mg DAILY [facility] Administration Cholecalciferol 2,000 unit 09/30/19 10:00 10/05/19 09:06 Vitamin D3 PO 2,000 unit QDAY [facility] Administration Enoxaparin Sodium 40 mg 10/01/19 22:00 10/04/19 21:49 Enoxaparin SUB-Q 40 mg QDAY@2200 [facility] Administration Guaifenesin 200 mg 10/03/19 10:00 10/03/19 17:33 Robitussin PO 200 mg Q4HR PRN Administration Cough Hydromorphone HCl 0.5 mg 09/29/19 22:01 Dilaudid IV Q3H PRN Pain , Severe (7-10) Hydroxychloroquine Sulfate 200 mg 10/05/19 12:00 Plaquenil PO 10/08/19 22:01 Q12HR [facility] Metoclopramide HCl 10 mg 09/29/19 22:01 Reglan IV Q6H PRN Nausea And Vomiting Metoprolol Tartrate 12.5 mg 09/29/19 22:00 10/05/19 09:05 Metoprolol PO 12.5 mg BID BELKIS Administration Montelukast Sodium 10 mg 09/30/19 18:00 10/04/19 19:51 Singulair PO 10 mg QPM BELKIS Administration Ondansetron HCl 4 mg 09/29/19 22:01 Zofran IV Q8H PRN Nausea And Vomiting Oxycodone/Acetaminophen 1 tab 09/29/19 22:01 10/01/19 08:26 Percocet 5/325 PO 1 tab Q6H PRN Administration Pain, Moderate (4-6) Pravastatin Sodium 20 mg 09/29/19 22:00 10/04/19 21:49 Pravachol PO 20 mg QHS BELKIS Administration Ranolazine 500 mg 09/29/19 22:00 10/05/19 09:05 Ranexa Er PO 500 mg BID BELKIS Administration Sodium Chloride 10 ml 09/30/19 10:00 10/05/19 09:07 Sodium Chloride Flush Syringe 10 Ml IV 10 ml BID BELKIS Administration Sodium Chloride 10 ml 09/29/19 22:01 Sodium Chloride Flush Syringe 10 Ml IV PRN PRN LINE FLUSH Nutrition/Malnutrition Assess - Dietary Evaluation Nutrition/Malnutrition Findings: Nutrition Notes Start: 10/04/19 13:22 Freq: Status: Active Protocol: Document 10/04/19 13:23 LM (Rec: 10/04/19 13:29 LM [id number]) Nutrition Notes Need for Assessment generated from: LOS Initial or Follow up Assessment Current Diagnosis Hypertension Other Pertinent Diagnosis asthma, fever, pneu, cough Current Diet Cardiac Labs/Tests Reviewed Pertinent Medications Reviewed Height 5 ft 4 in Weight 89.9 kg Usual Body Weight 87.27 kg [place] Body Weight (kg) 54.54 BMI 34.0 Intake Prior to Admission Good Weight Status Overweight Subjective/Other Information Screen for LOS. Pt stated she does not like the food and cannot eat it. Food preferences taken. Pt would like fresh fruit and vegetables, oatmeal and apple sauce for breakfast. Will order 1 Ensure for pt. Burn Absent Trauma Absent GI Symptoms None Current % PO Poor (25-49%) Minimum of two criteria No physical signs of malnutrition #1 Nutrition Diagnosis Inadequate oral intake Etiology Pt not liking hospital food As Evidenced by Signs and Symptoms pt not eating breakfast Is patient on ventilator? No Is Patient Ambulatory and/or Out of Bed Yes REE-([place]. Jeor-ambulatory/OOB) [ 1935.700 NUTR.MSJOOB] Kcal/Kg value to use for calculation 17 Approximate Energy Requirements Using 1528 kcal/Kg Calculation Used for Recommendations Kcal/kg Additional Notes Protein: 58-72g (0.8-1g/kg using AdjBW 72kg) Fluid: 1 ml/kcal Nutrition Intervention Change Diet Order: Continue cardaic Add Supplement/Snack (indicate name/kcal Ensure Enlive strawberry daily /protein ) Provides kCal: 350 Provides Protein (gm) 20 Goal #1 Meet at least 75% of energy and protein needs Anticipated Discharge Needs: Cardiac Follow-Up By: 10/08/19 Additional Comments F/U for PO/ONS intakes
--- NOTE | 2019-10-05 13:30 | Progress Note ---
Assessment and Plan Acute hypoxemic respiratory failure on supplemental oxygen at 5L/min Sepsis secondary to pneumonia PUI COVID19. Mild intermittent asthma h/o Hypertension - CXR reviewed and addressed - ABG reviewed and addressed - continue trial of hydroxychloroquine (anecdotal data to suggest that it is helpful. It is a relatively innocuous medication in the acute setting) - continue to wean supplemental oxygen to keep O2 sats > 90% - continue airborne and contact precautions - continue Bronchodilators (CLAIR) with pulmonary hygiene per RT - follow COVID-19 result - complete empiric CAP antibiotics - prn analgesia per pain score - PT/OT as tolerated - accuchecks with glycemic control per SSI for target blood glucose < 180 mg/dL - home oxygen evaluation at discharge - VTE prophylaxis - Pulmonary out patient follow up post discharge - continue all chronic home medications as indicated - continue other care per attending / other consultants .... re-evaluate in am & prn CONDITION: STABLE PROGNOSIS: IMPROVED CODE STATUS: FULL CODE Subjective Date of service: 10/05/19 Principal diagnosis: Ac hypoxemic resp failure; Sepsis 2/2 PNA (r/o COVID19; Asthma; HTN Interval history: Patient is seen today for: Acute hypoxemic respiratory failure; Sepsis secondary to pneumonia; PUI COVID19; Mild intermittent asthma; h/o Hypertension Seen and examined at bedside; 24hour events reviewed; nursing and respiratory care staff consulted; no adverse overnight events reported to me; resting peacefully in bed; looks and feels better; weaning off oxygen; afebrile now; No N/V/F/C; still awaiting COVID-19 result Objective Vital Signs - 12hr 10/05/19 10/05/19 10/05/19 05:48 09:05 09:21 Temperature 97.7 F Pulse Rate 66 66 Pulse Rate [ 75 Anterior Bilateral] Respiratory 16 Rate Respiratory 20 Rate [Anterior Bilateral] Blood Pressure 125/71 127/76 O2 Sat by Pulse 98 98 Oximetry Constitutional: no acute distress, alert, other (mild respiratory distress, atraumatic, normocephalic) Eyes: non-icteric ENT: oropharynx moist Neck: supple, no lymphadenopathy, no JVD Effort: mildly labored Ascultation: Bilateral: diminished breath sounds, rhonchi (scant in bases) Percussion: Bilateral: not dull Cardiovascular: regular rate and rhythm, other (S1,S2) Gastrointestinal: normoactive bowel sounds, soft, non-tender, non-distended Integumentary: normal Extremities: no cyanosis, no edema, pulses normal, no ischemia or petechiae Neurologic: normal mental status, non-focal exam, pupils equal and round, CN II- XII normal, motor strength normal and Psychiatric: mood appropriate, affect normal CBC and BMP: 10/05/19 08:00 10/05/19 08:00 ABG, PT/INR, D-dimer: ABG ABG pH 7.421 pH Units (7.350-7.450) 10/04/19 15:31 ABG pCO2 38.8 mm Hg 10/04/19 15:31 ABG pO2 86.5 mm Hg (80.0-90.0) 10/04/19 15:31 ABG O2 Saturation 96.9 % (95.0-99.0) 10/04/19 15:31 PT/INR, D-dimer PT 13.2 Sec. (12.2-14.9) 09/29/19 16:27 INR 0.99 (0.87-1.13) 09/29/19 16:27 Abnormal lab findings: Abnormal Labs 09/29/19 09/29/19 09/29/19 16:27 16:27 16:27 Plt Count Lymph # Seg Neutrophils % Seg Neuts % (Manual) 87.0 H Lymphocytes % (Manual) 12.0 L Monocytes % (Manual) Nucleated RBC % Lymphocytes # (Manual) 0.9 L Monocytes # (Manual) VBG pH 7.442 H Sodium 134 L Chloride 97.4 L Carbon Dioxide 21 L Glucose 105 H Albumin 09/30/19 09/30/19 10/05/19 Unknown Unknown 08:00 Plt Count 520 H Lymph # 0.7 L Seg Neutrophils % 80.4 H Seg Neuts % (Manual) Lymphocytes % (Manual) Monocytes % (Manual) 9.0 H Nucleated RBC % 1.0 H Lymphocytes # (Manual) Monocytes # (Manual) 1.0 H VBG pH Sodium Chloride Carbon Dioxide Glucose Albumin 3.5 L Chest x-ray: report reviewed Allied health notes reviewed: nursing
[2019-10-05] MEDS: MONTELUKAST 10 MG TAB PO SCH (18:03)
[2019-10-05] MEDS: ENOXAPARIN 40 MG/0.4 ML INJ SUB-Q SCH (22:16)
[2019-10-05] MEDS: PRAVASTATIN 20 MG TAB PO SCH (22:17)
--- NOTE | 2019-10-06 08:36 | Discharge Summary ---
Providers - Providers Date of Admission: 09/29/19 17:59 Date of discharge: 10/06/19 Attending physician: BREANA OROZCO 09/29/19 22:01 Consult to Physician [CONS] Routine Comment: Consulting Provider: CHRISTIANO ARMIJO Physician Instructions: Covid form filled out Reason For Exam: Bilateral pneumonia 10/04/19 10:54 Consult to Physician [CONS] Routine Comment: Consulting Provider: CHI STRANGE Physician Instructions: Reason For Exam: hypoxic resp failure Primary care physician: LACHO VARGAS Hospitalization Reason for admission: suspected covid Condition: Stable Hospital course: 54-year-old female past medical history hypertension, hyperlipidemia, asthma admitted to the hospital with flulike symptoms and concern for novel coronavirus infection. Paperwork was completed for the [facility] and the results are pending. The patient was admitted with diagnosis of suspect coronavirus infection, sepsis/pneumonia and acute hypoxic respiratory failure. The patient required large amounts of oxygen which now has been weaned off. The patient was also started on hydroxychloroquine 400 mg every 12 hours x2 doses followed by 200 mg every 24 hours for completion of 4 days. Procalcitonin was found to be normal indicating likely viral etiology of pneumonia. Now that emmie ient is off oxygen and back to her baseline respiratory status, patient will be discharged home. Upon discharge patient should self-quarantine at home until COVID testing returns. If negative, self-quarantine may end. If positive patient should self-quarantine for 14 days from symptom beginning. Public health and infection prevention will follow up with patients to notify them of their test results. Patients should return to hospital regardless if they have worsening fevers or respiratory status. Dedicated discharge time 35 minutes. Disposition: - TO HOME OR SELFCARE Time spent for discharge: 35 - Discharge Diagnoses (1) Sepsis Status: Acute (2) Acute respiratory failure with hypoxia Status: Acute (3) Community acquired pneumonia Status: Acute Qualifiers: Laterality: right (4) Leukocytosis Status: Acute (5) HTN (hypertension) Status: Chronic Qualifiers: Hypertension type: essential hypertension Qualified Code(s): I10 - Essential (primary) hypertension (6) Hyperlipidemia Status: Chronic Qualifiers: Hyperlipidemia type: mixed hyperlipidemia Qualified Code(s): E78.2 - Mixed hyperlipidemia (7) Asthma Status: Inactive Qualifiers: Asthma persistence: unspecified Core Measure Documentation - Palliative Care Palliative Care/ Comfort Measures: Not Applicable - Core Measures Any of the following diagnoses?: none Exam - Constitutional Vitals: Temp Pulse Resp BP Pulse Ox 97.8 F 69 20 123/76 96 10/05/19 16:52 10/05/19 22:16 10/05/19 21:29 10/05/19 22:16 10/05/19 21:30 General appearance: Present: no acute distress, well-nourished - EENT Eyes: Present: PERRL ENT: hearing intact, clear oral mucosa - Neck Neck: Present: supple, normal ROM - Respiratory Respiratory effort: normal Respiratory: bilateral: CTA - Cardiovascular Heart Sounds: Present: S1 & S2. Absent: rub, click - Extremities Extremities: pulses symmetrical, No edema Peripheral Pulses: within normal limits - Abdominal General gastrointestinal: Present: soft, non-tender, non-distended, normal bowel sounds Female genitourinary: Present: normal - Integumentary Integumentary: Present: clear, warm, dry - Musculoskeletal Musculoskeletal: gait normal, strength equal bilaterally - Psychiatric Psychiatric: appropriate mood/affect, intact judgment & insight - Neurologic Neurologic: CNII-XII intact, moves all extremities Plan Activity: advance as tolerated Weight Bearing Status: Weight Bear as Tolerated Diet: regular Additional Instructions: Upon discharge patient should self-quarantine at home until COVID testing returns. If negative, self-quarantine may end. If positive patient should self-quarantine for 14 days from symptom beginning. Public health and infection prevention will follow up with patients to notify them of their test results. Patients should return to hospital regardless if they have worsening fevers or respiratory status. Follow up with: ESTEFANIA ROMANO MD [Staff Physician] - 7 Days CHRISTIANO ARMIJO MD [Staff Physician] - 7 Days Prescriptions: cefUROXime [Ceftin] 500 mg PO Q12H #14 tablet Metoprolol [Lopressor TAB] 12.5 mg PO BID #60 tablet oxyCODONE /ACETAMINOPHEN [Percocet 5/325 mg] 1 tab PO Q6H PRN #10 tablet PRN Reason: Pain, Moderate (4-6) Hydroxychloroquine [Plaquenil] 200 mg PO Q12HR #6 tablet Pravastatin [Pravachol] 20 mg PO QHS #30 tablet guaiFENesin [Robitussin] 200 mg PO Q4HR PRN 15 Days oral.liqd PRN Reason: Cough Montelukast [Singulair] 10 mg PO QPM #30 Azithromycin [Zithromax TAB] 250 mg PO QDAY #7 tablet
[2019-10-06] MEDS: ALBUTEROL 2.5 MG/3 ML NEBU IH SCH ×2 (08:50→14:50)
[2019-10-06] MEDS: ASPIRIN EC 81 MG TAB PO SCH (08:53)
[2019-10-06] MEDS: METOPROLOL TARTRATE 25 MG TAB PO SCH (08:56)
[2019-10-06 08:57] VITALS: BP 126/76
[2019-10-06] MEDS: RANOLAZINE ER 500 MG TAB 12HR PO SCH (08:57)
[2019-10-06] MEDS: HYDROXYCHLOROQUINE 200 MG TAB PO SCH (08:57)
[2019-10-06] MEDS: CHOLECALCIFEROL (VIT D3) 1000 UNIT (25 mcg) TAB PO SCH (08:58)
[2019-10-06] MEDS: guaiFENesin 100 MG/5 ML ORAL LIQD PO PRN (13:03)
--- NOTE | 2019-10-06 13:30 | Progress Note ---
Assessment and Plan Acute hypoxemic respiratory failure on supplemental oxygen at 5L/min Sepsis secondary to pneumonia PUI COVID19. Mild intermittent asthma h/o Hypertension - continue airborne and contact precautions - prn Bronchodilators (CLAIR) with pulmonary hygiene per RT - follow COVID-19 result - complete empiric CAP antibiotics - prn analgesia per pain score - PT/OT as tolerated - accuchecks with glycemic control per SSI for target blood glucose < 180 mg/dL - VTE prophylaxis - Pulmonary out patient follow up post discharge - continue all chronic home medications as indicated - continue other care per attending / other consultants - Agree with discharge plan home with continued isolation / self quarantine pending COVID-19 result .... re-evaluate in am & prn CONDITION: STABLE PROGNOSIS: GOOD CODE STATUS: FULL CODE Subjective Date of service: 10/06/19 Principal diagnosis: Ac hypoxemic resp failure; Sepsis 2/2 PNA (r/o COVID19; Asthma; HTN Interval history: Patient is seen today for: Acute hypoxemic respiratory failure; Sepsis secondary to pneumonia; PUI COVID19; Mild intermittent asthma; h/o Hypertension Seen and examined at bedside; 24hour events reviewed; nursing and respiratory care staff consulted; no adverse overnight events reported to me; resting peacefully in bed; doing much better; off oxygen; awaiting COVID result Objective Vital Signs - 12hr 10/06/19 10/06/19 10/06/19 05:57 08:50 08:56 Temperature 98.2 F Pulse Rate 66 72 Pulse Rate [ 77 Anterior Bilateral] Respiratory 18 Rate Respiratory 20 Rate [Anterior Bilateral] Blood Pressure 110/64 126/76 O2 Sat by Pulse 96 Oximetry 10/06/19 09:04 Temperature Pulse Rate Pulse Rate [ Anterior Bilateral] Respiratory Rate Respiratory Rate [Anterior Bilateral] Blood Pressure O2 Sat by Pulse 96 Oximetry Constitutional: no acute distress, alert, other (no respiratory distress, atraumatic, normocephalic) Eyes: non-icteric ENT: oropharynx moist Neck: supple, no lymphadenopathy, no JVD Effort: normal Ascultation: Bilateral: diminished breath sounds Percussion: Bilateral: not dull Cardiovascular: regular rate and rhythm, other (S1,S2) Gastrointestinal: normoactive bowel sounds, soft, non-tender, non-distended Integumentary: normal Extremities: no cyanosis, no edema, pulses normal, no ischemia or petechiae Neurologic: normal mental status, non-focal exam, pupils equal and round, CN II- XII normal, motor strength normal and Psychiatric: mood appropriate, affect normal CBC and BMP: 10/05/19 08:00 10/05/19 08:00 ABG, PT/INR, D-dimer: ABG ABG pH 7.421 pH Units (7.350-7.450) 10/04/19 15:31 ABG pCO2 38.8 mm Hg 10/04/19 15:31 ABG pO2 86.5 mm Hg (80.0-90.0) 10/04/19 15:31 ABG O2 Saturation 96.9 % (95.0-99.0) 10/04/19 15:31 PT/INR, D-dimer PT 13.2 Sec. (12.2-14.9) 09/29/19 16:27 INR 0.99 (0.87-1.13) 09/29/19 16:27 Abnormal lab findings: Abnormal Labs 09/29/19 09/29/19 09/29/19 16:27 16:27 16:27 Plt Count Lymph # Seg Neutrophils % Seg Neuts % (Manual) 87.0 H Lymphocytes % (Manual) 12.0 L Monocytes % (Manual) Nucleated RBC % Lymphocytes # (Manual) 0.9 L Monocytes # (Manual) VBG pH 7.442 H Sodium 134 L Chloride 97.4 L Carbon Dioxide 21 L Glucose 105 H Albumin 09/30/19 09/30/19 10/05/19 Unknown Unknown 08:00 Plt Count 520 H Lymph # 0.7 L Seg Neutrophils % 80.4 H Seg Neuts % (Manual) Lymphocytes % (Manual) Monocytes % (Manual) 9.0 H Nucleated RBC % 1.0 H Lymphocytes # (Manual) Monocytes # (Manual) 1.0 H VBG pH Sodium Chloride Carbon Dioxide Glucose Albumin 3.5 L Allied health notes reviewed: nursing
== END 2019-10-06 15:00 | disposition home or self-care (01) | DRG 871 ==
LOC: ED 16:10 → 3A 17:59
PROVIDERS: ADMIT Internal Medicine; ATTEND Hospitalist
PROC: 4A033R1 Measurement of Arterial Saturation, Peripheral, Percutaneous Approach (ICD-10-PCS; principal; 2019-10-04)
DX: A41.9 Sepsis, unspecified organism (principal); J96.01 Acute respiratory failure with hypoxia; J12.9 Viral pneumonia, unspecified; J45.909 Unspecified asthma, uncomplicated; I10 Essential (primary) hypertension; I25.2 Old myocardial infarction; E78.00 Pure hypercholesterolemia, unspecified; E78.2 Mixed hyperlipidemia; Z82.49 Family history of ischemic heart disease and other diseases of the circulatory system; D72.810 Lymphocytopenia
CPT/HCPCS: 36415; 36600; 71045; 80048; 80053; 82140; 82803; 82805; 83036; 84145; 85007; 85025; 85610; 87040; 87086; 87400; 94640; 94760; 96361; 96365; G0378; A9270-GY; J0456; J0696; J1650; J1940; J7030; J7040; J7050; J7509